=== PATIENT | female | born 1950 | race Caucasian/White ===

== ENCOUNTER 2020-06-03 08:31 | Outpatient (REF) | payer MEDICARE, SELFPAY ==
[2020-06-03 11:10] LABS: MANUAL DIFF FLAG NO
[2020-06-03 11:22] LABS: Basophils Absolute Auto 0.1 X10*3/uL (0.0-0.2); Basophils Percent Auto 0.8 % (0-2); Eosinophils Absolute Auto 0.5 X10*3/uL (0.0-0.4); Hematocrit 44.8 % (37-47); Hemoglobin 15.2 g/dl (12.0-16.0); Imm Gran Abs Auto 0.03 X10*3/uL (0.00-0.03); Imm Gran Pct Auto 0.3 % (0.0-0.4); Lymphocytes Absolute Auto 2.9 X10*3/uL (1.2-4.9); Mean Corpuscular HGB Conc 33.9 g/dl (31.0-35.0); Mean Corpuscular Hemoglobin 32.2 pg (27.0-33.0); Mean Corpuscular Volume 94.9 fL (80-98); Monocytes Absolute Auto 0.7 X10*3/uL (0.1-1.2); Monocytes Percent Auto 7.1 % (2-11); Neutrophils Absolute Auto 5.7 X10*3/uL (2.0-8.3); Neutrophils Percent Auto 57.8 % (45-73); Platelet Count 299 X10*3/uL (160-400); Red Blood Count 4.72 X10*6/uL (4.20-5.50); Red Cell Distribution Width 14.2 % (11.0-16.0); White Blood Count 9.8 X10*3/uL (4.8-10.8)
[2020-06-03 11:42] LABS: Estimated Average Glucose 108 mg/dL; Hemoglobin A1c % 5.4 %
[2020-06-03 12:02] LABS: Anion Gap 13 (12-20); Blood Urea Nitrogen 13 mg/dL (9-16); Calcium 9.3 mg/dL (8.4-10.2); Carbon Dioxide 30 mmol/L (22-29); Chloride 104 mmol/L (96-108); Cholesterol 154 mg/dL; Estimated Glomerular Filt Rate > 60; Glucose Fasting 107 mg/dL (60-99); HDL Cholesterol 58 mg/dL; LDL Cholesterol Calculated 66 mg/dl; Potassium 3.6 mmol/L (3.3-5.1); Sodium 143 mmol/L (135-145); Triglycerides 152 mg/dL
[2020-06-10 12:36] LABS: Vitamin D 25-OH, D2 <4 ng/mL; Vitamin D 25-OH, D3 25 ng/mL; Vitamin D 25-OH, Total 25 ng/mL (30-100)
== END 2020-06-03 08:32 | disposition home or self-care (01) ==
LOC: HO.HMGCLDS 08:31
PROVIDERS: PCP Internal Medicine; Visit Provider Internal Medicine
DX: R73.01 Impaired fasting glucose (principal); E03.9 Hypothyroidism, unspecified; E78.9 Disorder of lipoprotein metabolism, unspecified; I10 Essential (primary) hypertension; E55.9 Vitamin D deficiency, unspecified
CPT/HCPCS: 36415; 80048; 80061; 82306; 83036; 85025

== ENCOUNTER 2020-06-23 12:29 | Outpatient (REF) | payer MEDICARE, SELFPAY ==
--- NOTE | ~2020-06-23 | XR_ITS ---
EXAMINATION: XR CERVICAL SPINE CLINICAL INFORMATION: Cervicalgia COMPARISON: None TECHNIQUE: 3 views of the cervical spine were obtained. FINDINGS: No acute fracture or subluxation. Vertebral body height and alignment is maintained. Disc space narrowing seen at C4-C5, C5-C6, and C6-C7 with endplate osteophytes. Mild facet arthropathy. The atlantoaxial joint is well aligned. The dens is intact. The prevertebral soft tissues are unremarkable. The lung apices are clear. 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
== END 2020-06-23 12:30 | disposition home or self-care (01) ==
LOC: HO.HMGCX 12:29
PROVIDERS: PCP Internal Medicine; Visit Provider Internal Medicine
DX: M54.2 Cervicalgia (principal); R10.13 Epigastric pain; E55.9 Vitamin D deficiency, unspecified; E03.9 Hypothyroidism, unspecified; E78.9 Disorder of lipoprotein metabolism, unspecified; R73.01 Impaired fasting glucose; H61.23 Impacted cerumen, bilateral; I10 Essential (primary) hypertension
CPT/HCPCS: 72040

== ENCOUNTER → 2020-09-22 14:28 | Outpatient (BNVA) | payer MEDICARE, SELFPAY | PROVIDERS: PCP Internal Medicine; Referring Provider Internal Medicine; Visit Provider Nurse Practitioner Family | DX: Z45.018 Encounter for adjustment and management of other part of cardiac pacemaker (principal); I49.5 Sick sinus syndrome; I35.0 Nonrheumatic aortic (valve) stenosis | CPT/HCPCS: 99212 ==

== ENCOUNTER → 2020-11-03 10:20 | Outpatient (REF) | payer MEDICARE, SELFPAY ==
--- NOTE | 2020-11-03 10:28 | CA_ITS ---
Transthoracic Echocardiogram Patient (Last, First, Middle): Corinne Landers A Gender: Female Date of : 1950 Age: 70 Procedure Date: 11/03/2020 Procedure Type: Transthoracic Echocardiogram Location: OP Height: 172.72 cm Weight: 72.58 kg BSA: 1.86 m2 Heart Rate: bpm BP: 120 / 70 mmHg Forensic Structural Engineer: KAYLAH Referring MD: Ban Frances JOGGER OPERATORJaimieC Symptoms: I35.0 - Nonrheumatic aortic (valve) stenosis Study Quality: Good ECG Rhythm: Sinus Conclusions: - The left ventricular systolic function is normal. The visually estimated ejection fraction is between 65-70%. - Focal hypertrophy of the basal septum. - Aortic valve sclerosis but no significant stenosis. Findings Left Ventricle Normal left ventricular cavity size. There is normal left ventricular wall thickness. The left ventricular systolic function is normal. The visually estimated ejection fraction is between 65-70%. There is no evidence of regional wall motion abnormalities. Diastolic function is normal for age. Focal hypertrophy of the basal septum. Right Ventricle Normal right ventricular cavity size. There is low normal right ventricular systolic function. TAPSE 1.65cm. Atria Both atria are normal in size. Aortic Valve There is a normal trileaflet aortic valve. There is mild calcification of the aortic valve. The mean gradient is 9 mmHg. There is no aortic valve regurgitation. No significant aortic stenosis. Mitral Valve The mitral valve appears normal. There is no mitral valve regurgitation. There is no mitral valve stenosis. Pulmonic Valve The pulmonic valve is likely normal. Tricuspid Valve Normal tricuspid valve structure. There is trace tricuspid valve regurgitation. The pulmonary artery systolic pressure is normal. Great Vessels The aortic annulus, sinuses of valsalva, and asc aorta are normal in size. Venous The inferior vena cava is normal in size and collapses greater than 50% with inspiration. Pericardium/Pleural There is no evidence of pericardial effusion. Prior Study Comparison No significant change compared to prior study dated: 07/31/2018. Measurements 2D Linear Measurements IVSd: 1.00 0.6-0.9/0.6-1.0 cm LVIDd: 4.40 3.9-5.3/4.2-5.9 cm LVIDd Index: 2.37 2.4-3.2/2.2-3.1 cm/m2 LVIDs: 2.57 2.0-3.6 cm LVPWd: 0.78 0.7-1.1 cm Ao Root: 2.90 2.1-3.5 cm LA Diam: 3.50 2.7-3.8/3.0-4.0 cm LAIDs Index: 1.88 1.5-2.3 cm/m2 LV Mass: 156.52 67-162/88-224 g LV Mass Index: 84.15 43-95/49-115 g/m2 LVOT Diam: 2.00 3.0+(-)1.3 cm 2D Systolic Function EF 4C: 64.10 >55% EF 2C: 62.60 >55% EF BiP: 63.30 >55% Mitral Valve MV Pk E: 0.55 MV PK A: 0.91 MV Decel Time: 285.00 E/A: 0.60 E'Lateral: 6.53 E'Medial: 5.33 E/E' Med: 10.20 E/E' Lat: 8.30 PHT: 83.00 MVA PHT: 2.65 Decel Thomas: 1.91 Aortic Valve AoV Pk Yuri: 2.14 AoV Mn Yuri: 1.38 AoV VTI: 0.42 AoV Pk Grad: 18.00 Aov Mn Grad: 9.00 LETICIA Cont.VTI: 1.78 LVOT LVOT Pk Yuri: 0.98 LVOT Mn Yuri: 0.66 LVOT VTI: 0.24 LVOT Pk Grad: 4.00 LVOT Mn Grad: 2.00 LVOT Diam: 2.00 LVOT Area: 3.14 Diastolic Function MV Pk E: 0.55 MV Pk A: 0.91 E/A: 0.60 E'Medial: 5.33 E/E' Med: 10.20 E' Laterial: 6.53 E/E' Lat: 8.30 Right Ventricle TAPSE (mm): 1.65 TVS' Yuri: 10.30 Tricuspid Valve TR Pk Yuri: 2.31 TR Pk Grad: 21.00 RA Press: 3.00 RVSP: 24.00 Great Vessels Aorta Ao Root-2D: 2.90 2.0-3.7 cm Ao Asc: 3.10 2.1-3.4 cm Ao Arch: 2.50 Updated in Other Vendor System with Status of Final Jagjit Cuevas MD electronically signed on 11/04/2020 11:59:56 AM with status of Final
== END ==
LOC: HO.CARD 10:20
PROVIDERS: Visit Provider Nurse Practitioner Family
DX: Z01.419 Encounter for gynecological examination (general) (routine) without abnormal findings (principal); I35.0 Nonrheumatic aortic (valve) stenosis; Z87.891 Personal history of nicotine dependence; Z71.3 Dietary counseling and surveillance
CPT/HCPCS: 93306

== ENCOUNTER → 2020-12-07 13:26 | Outpatient (BNVA) | payer MEDICARE, SELFPAY | PROVIDERS: PCP Internal Medicine; Referring Provider Internal Medicine; Visit Provider Nurse Practitioner Family | DX: Z12.11 Encounter for screening for malignant neoplasm of colon (principal) | CPT/HCPCS: 99202 ==

== ENCOUNTER 2020-12-17 12:17 | Outpatient (REF) | payer MEDICARE, SELFPAY ==
--- NOTE | ~2020-12-17 | MM_ITS ---
EXAMINATION: MM SCREENING DIGITAL BREAST TOMOSYNTHESIS, BILATERAL CLINICAL INFORMATION: Screening. Asymptomatic. The lifetime risk of breast cancer based on the Tyrer-Cuzick Model is 4%. COMPARISON: Mammography: 12/14/2017, 10/23/2016, 10/13/2015, 10/07/2015 TECHNIQUE: Digital breast tomosynthesis is performed in both the craniocaudal and mediolateral oblique views along with computer-aided detection (CAD). Synthesized 2D images are generated from the tomosynthesis. Additional left MLO view is provided. FINDINGS: There are scattered areas of fibroglandular density (ACR BI-RADS breast composition Category b). There are no significant masses, abnormal calcifications, or other abnormalities. Pacemaker generator partially overlies and obscures posterior upper left axilla. Parenchymal pattern is similar to prior exams. No developing density. No significant changes. MM/MM tomosynthesis screening BI IMPRESSION: No mammographic evidence of malignancy. ASSESSMENT: BI-RADS 1: Negative RECOMMENDATION: Routine annual mammography screening. This patient's information was entered into a reminder system with a target due date for their next mammogram.
== END 2020-12-17 12:18 | disposition home or self-care (01) ==
LOC: HO.MAMMO 12:17
PROVIDERS: Visit Provider Internal Medicine
DX: Z12.31 Encounter for screening mammogram for malignant neoplasm of breast (principal)
CPT/HCPCS: 77063; 77067

== ENCOUNTER 2020-12-30 08:45 | Outpatient (REF) | payer MEDICARE, SELFPAY ==
[2020-12-30 11:55] LABS: Alanine Aminotransferase 56 U/L (0-31); Albumin Level 4.3 g/dL (3.5-5.0); Alkaline Phosphatase 124 U/L (39-117); Anion Gap 13 (12-20); Aspartate Amino Transferase 31 U/L (5-31); Bilirubin Total 0.8 mg/dL (0.0-1.0); Blood Urea Nitrogen 12 mg/dL (9-16); Calcium 9.4 mg/dL (8.4-10.2); Carbon Dioxide 26 mmol/L (22-29); Chloride 106 mmol/L (96-108); Cholesterol 140 mg/dL; Estimated Glomerular Filt Rate > 60; Glucose Fasting 115 mg/dL (60-99); HDL Cholesterol 43 mg/dL; LDL Cholesterol Calculated 76 mg/dl; Potassium 3.9 mmol/L (3.3-5.1); Sodium 141 mmol/L (135-145); Total Protein 7.4 g/dL (6.5-8.0); Triglycerides 105 mg/dL
[2020-12-30 12:05] LABS: TSH reflex Free T4 2.15 uIU/mL (0.32-4.0)
== END 2020-12-30 08:46 | disposition home or self-care (01) ==
LOC: HO.HMGCLDS 08:45
PROVIDERS: PCP Internal Medicine; Visit Provider Internal Medicine
DX: Z00.01 Encounter for general adult medical examination with abnormal findings (principal); E03.9 Hypothyroidism, unspecified; E78.9 Disorder of lipoprotein metabolism, unspecified; I10 Essential (primary) hypertension; R73.01 Impaired fasting glucose
CPT/HCPCS: 36415; 80053; 80061; 84443

== ENCOUNTER 2021-01-19 08:52 | Day surgery (SDC) | payer MEDICARE, SELFPAY ==
[2021-01-13 15:50] VITALS: BMI 24.3
--- NOTE | 2021-01-18 10:51 | HO.ANESPROP2 ---
Documented by User: Natalia Quintanilla NP 01/18/21 10:53 HPI - Anesthesia Eval Consult details Narrative: 70yo F for Colonoscopy Pacer in situ (SSS) PMFSH Active Problems Active Problems: All Active Problems (Updated 12/31/20 @ 14:53 by Cole Mei MD) Counseling for travel (Acute) Well woman exam with routine gynecological exam (Acute) Impacted cerumen of both ears (Acute) Encounter for routine gynecological examination (Acute) Breast screening (Acute) Encounter for general adult medical examination with abnormal findings (Acute) Aortic stenosis (Acute) Colon cancer screening (Acute) Epigastric pain (Acute) Cervicalgia (Acute) Excessive cerumen in both ear canals (Acute) Vitamin D deficiency (Acute) Asthma, mild (Acute) Osteopenia (Acute) Impaired fasting blood sugar (Acute) Psoriasis (Acute) Hypothyroidism (Acute) Lipid disorder (Acute) Hypertension, essential (Acute) Presence of heart assist device (Acute) Past Medical History Medical History Aortic stenosis Asthma, mild Excessive cerumen in both ear canals Hypertension, essential Hypothyroidism Impaired fasting blood sugar Lipid disorder Osteopenia Psoriasis SSS (sick sinus syndrome) Vitamin D deficiency Family History Family History Father History of CVA (cerebrovascular accident) HTN (hypertension) Depression Mother History of CVA (cerebrovascular accident) CAD (coronary artery disease) HTN (hypertension) Colitis Sister Myocardial infarction CAD (coronary artery disease) Colitis Brother Diabetes mellitus Maternal Aunt Breast cancer CAD (coronary artery disease) HTN (hypertension) Maternal Grandfather No problems noted. Maternal Grandmother No problems noted. Paternal Grandfather No problems noted. Paternal Grandmother No problems noted. Son No problems noted. Son No problems noted. Daughter No problems noted. Surgical History Surgical History History of colonoscopy History of cystoscopy History of tooth extraction Pacemaker Presence of heart assist device Social History Social History Housing: House Alcohol intake: current Alcohol intake frequency: a few times a week Patient Tobacco Use Status: Former Tobacco user Tobacco use type: Cigarette Cigarette Packs Per Day: 1 Use of substances other than those prescribed or required for medical reasons: No Are you DNR?: No Advance Directives: No Advance Directives Information Provided: Yes Current occupational status: retired Meds Allergies Allergy/AdvReac Type Severity Reaction Status Date / Time Sulfa (Sulfonamide Allergy Severe RASH ALL Verified 12/31/20 14:37 Antibiotics) OVER [SULFA (SULFONAMIDE BODY,FACE, ANTIBIOTICS)] rash Penicillins Allergy Mild THROAT Verified 12/31/20 14:37 SWELLING lisinopril Allergy Unknown cough Verified 12/31/20 14:37 penicillin V Allergy Unknown tongue Verified 12/31/20 14:37 banana [BANANA] AdvReac Severe STOMACH Verified 12/31/20 14:37 UPSET/PAIN hazelnut [HAZELNUT] AdvReac Intermediate UPSET Verified 12/31/20 14:37 STOMACH Exam Exam Date and Time: January 18, 2021 1051 Height,Weight and Vital Signs: Height 5 ft 8 in Weight 72.575 kg Pertinent Lab Results Pertinent Lab Results: Laboratory Tests 06/03/20 12/30/20 08:37 08:51 WBC 9.8 Hgb 15.2 Hct 44.8 Plt Count 299 Sodium 141 Potassium 3.9 Chloride 106 Carbon Dioxide 26 BUN 12 Creatinine 0.78 Narrative Narrative: Pacer Interr 09/2020 Medtronic dual chamber PPM today shows battery 5.5 years, A and V thresholds normal, AAIR-DDDR mode, low rate 60, No AF, 2 short VT, / VS 94.9%, AP/VS 5.1%, no changes made. ECHO 10/2020 Conclusions: - The left ventricular systolic function is normal.? The visually estimated ejection fraction is between 65-70%. ? - Focal hypertrophy of the basal septum. ? - Aortic valve sclerosis but no significant stenosis.? ?? Assessment and Plan Assessment Anesthesia Assessment: Chart Reviewed Documented by User: Zoe Smith MD 01/19/21 09:48 PMFSH Past Medical History Medical History Aortic stenosis Asthma, mild Excessive cerumen in both ear canals Hypertension, essential Hypothyroidism Impaired fasting blood sugar Lipid disorder Osteopenia Psoriasis SSS (sick sinus syndrome) Vitamin D deficiency Family History Family History Father History of CVA (cerebrovascular accident) HTN (hypertension) Depression Mother History of CVA (cerebrovascular accident) CAD (coronary artery disease) HTN (hypertension) Colitis Sister Myocardial infarction CAD (coronary artery disease) Colitis Brother Diabetes mellitus Maternal Aunt Breast cancer CAD (coronary artery disease) HTN (hypertension) Maternal Grandfather No problems noted. Maternal Grandmother No problems noted. Paternal Grandfather No problems noted. Paternal Grandmother No problems noted. Son No problems noted. Son No problems noted. Daughter No problems noted. Surgical History Surgical History History of colonoscopy History of cystoscopy History of tooth extraction Pacemaker Presence of heart assist device History of Problems with Anesthesia: No Social History Social History Housing: House Alcohol intake: current Alcohol intake frequency: a few times a week Patient Tobacco Use Status: Former Tobacco user Tobacco use type: Cigarette Cigarette Packs Per Day: 1 Use of substances other than those prescribed or required for medical reasons: No Are you DNR?: No Advance Directives: No Advance Directives Information Provided: Yes Current occupational status: retired Meds Allergies Allergy/AdvReac Type Severity Reaction Status Date / Time Sulfa (Sulfonamide Allergy Severe RASH ALL Verified 12/31/20 14:37 Antibiotics) OVER [SULFA (SULFONAMIDE BODY,FACE, ANTIBIOTICS)] rash Penicillins Allergy Mild THROAT Verified 12/31/20 14:37 SWELLING lisinopril Allergy Unknown cough Verified 12/31/20 14:37 penicillin V Allergy Unknown tongue Verified 12/31/20 14:37 banana [BANANA] AdvReac Severe STOMACH Verified 12/31/20 14:37 UPSET/PAIN hazelnut [HAZELNUT] AdvReac Intermediate UPSET Verified 12/31/20 14:37 STOMACH Exam Airway Mallampati Class: II TM Dist: >3cm Neck ROM: Full Loose/Missing/Broken Teeth: No Heart: RRR Lungs: CTA Assessment and Plan Assessment Anesthesia Assessment: Anesthesia Plan Discussed Final Anesthetic Review History of Problems with Anesthesia: No NPO: Yes ASA Class: III Final Preanesthetic Review: Meds/Allgs Chart Reviewed, Consent Obtained/Reviewed and Anes Risks/Benef Reviewed Patient Risk: Intermediate Procedure Risk: Low Anesthetic Plan Anesthetic Plan: MAC: Disposition: Standard PACU
--- NOTE | 2021-01-19 09:20 | MHC.SHP ---
Pre-Procedural Eval Section A Date of Service: 01/19/21 Section B Chief Complaint: screening Relevant Family History (Specify if Yes): No Relevant Social History: None Present Medications: see Short Stay Collaborative assessment Medical History: Significant History (Aortic stenosis Asthma, mild Excessive cerumen in both ear canals Hypertension, essential Hypothyroidism Impaired fasting blood sugar Lipid disorder Osteopenia Psoriasis SSS (sick sinus syndrome) Vitamin D deficiency) History of Previous Operations: Relevant previous surgery/procedure and date(s) (History of colonoscopy History of cystoscopy History of tooth extraction Pacemaker Presence of heart assist device) Allergies: Allergies Allergy/AdvReac Type Severity Reaction Status Date / Time Sulfa (Sulfonamide Allergy Severe RASH ALL Verified 12/31/20 14:37 Antibiotics) OVER [SULFA (SULFONAMIDE BODY,FACE, ANTIBIOTICS)] rash Penicillins Allergy Mild THROAT Verified 12/31/20 14:37 SWELLING lisinopril Allergy Unknown cough Verified 12/31/20 14:37 penicillin V Allergy Unknown tongue Verified 12/31/20 14:37 banana [BANANA] AdvReac Severe STOMACH Verified 12/31/20 14:37 UPSET/PAIN hazelnut [HAZELNUT] AdvReac Intermediate UPSET Verified 12/31/20 14:37 STOMACH Review of Systems Sugical H&P ROS: Negative: Constitution, Cardiovascular, Respiratory, Neurological, Psychiatric, Hem-Onc, Allergic/Immunologic, Gastrointestinal, Genitourinary, Musculoskeletal, Integumentary, Endocrine and Eyes/Ears/Nose/Throat Exam Surgical H&P Exam: Normal: HEENT, Normal: Heart, Normal: Lungs, Normal: Extremities, Normal: Abdomen, Normal: Skin and Normal: Neurological Plan Diagnosis/Plan: Unchanged I have reviewed the history and physical and performed a pertinent physical examination on my patient. No changes have occurred unless specified.
[2021-01-19 09:27] VITALS: BP 140/72; PULSE 80; RESP 16; TEMP 36.2; O2SAT 97; BMI 24.3
[2021-01-19] MEDS: Lactated Ringers 1,000 ML 100 ML IVCONT (09:35)
--- NOTE | 2021-01-19 10:15 | P.OP_ITS ---
Operative Note Operative Note Date of Service: 01/19/21 Narrative: Operative Information Procedure Description: Colonoscopy COLONOSCOPY Instrument: Olympus variable stiffness pediatric scope 190L Colonoscopy Monitoring: Vital signs and clinical assessment, continuous EKG monitoring, Pulse oximetry, Carbon Dioxide monitoring and blood pressure monitoring were done throughout the procedure. Colon withdrawal time was 8 minutes. Procedure: The patient was placed in the left lateral decubitis position and pre-procedure medications were administered. After a digital rectal examination of the ano-rectum, the video colonoscope was inserted into the rectum and advanced through the colon to the cecum/TI. The colonoscope was slowly withdrawn in a retrograde panoramic fashion and the colon mucosa was carefully examined including a retroflexed view of the rectum. Findings and interventions are described below. Procedure Difficulty: easy Findings: Terminal Ileum-normal Cecum:normal Ascending Colon: normal Transverse Colon -normal Descending Colon:normal Sigmoid Colon: normal Rectum: Retroflexion with small internal hemorrhoids, grade I with skin tag Anorectum - normal Colon preparation: [place] Bowel Preparation Scale Right colon; 2 Transverse colon: 2 Left colon; 2 (0 = Unprepared colon segment with mucosa not seen due to solid stool that cannot be cleared. 1 = Portion of mucosa of the colon segment seen, but other areas of the colon segment not well seen due to staining, residual stool and/or opaque liquid. 2 = Minor amount of residual staining, small fragments of stool and/or opaque liquid, but mucosa of colon segment seen well. 3 = Entire mucosa of colon segment seen well with no residual staining, small fragments of stool or opaque liquid) Impression and Post Procedure Diagnosis: internal hemorrhoids Plan: High fiber diet leaflet Avoid straining at stool, epsom salts and sitz bath, anusol supps or cream Repeat Colonoscopy in 10 years if health allows or earlier if clinically indicated Above findings were reviewed with the patient and relevant handouts were provided if indicated.
--- NOTE | 2021-01-19 10:15 | P.BOP_ITS ---
Brief Operative Note Date of Service: 01/19/21 Pre-op diagnosis: colon screening Post-op diagnosis: same Procedure: see op note Surgeon: Sun Landers MD Anesthesia: MAC Was an Health Care Coordinator used for this Procedure?: No Estimated blood loss (mL): 0 Condition: stable Disposition: PACU
[2021-01-19 10:20] VITALS: BP 95/54; PULSE 69; RESP 16; TEMP 36.2; O2SAT 97
[2021-01-19 10:35] VITALS: BP 110/57; PULSE 68; RESP 17; TEMP 36.2; O2SAT 96
== END 2021-01-19 11:35 | disposition home or self-care (01) ==
PROVIDERS: PCP Internal Medicine; Visit Provider Internal Medicine Gastroenterology
PROC: 0DJD8ZZ Inspection of Lower Intestinal Tract, Via Natural or Artificial Opening Endoscopic (ICD-10-PCS; CPT 45378; principal; 2021-01-19 10:10)
DX: Z12.11 Encounter for screening for malignant neoplasm of colon (principal); K64.0 First degree hemorrhoids; K64.4 Residual hemorrhoidal skin tags; K21.9 Gastro-esophageal reflux disease without esophagitis; I35.0 Nonrheumatic aortic (valve) stenosis; I49.5 Sick sinus syndrome; I10 Essential (primary) hypertension; J45.909 Unspecified asthma, uncomplicated; Z79.82 Long term (current) use of aspirin; Z79.899 Other long term (current) drug therapy; Z86.73 Personal history of transient ischemic attack (TIA), and cerebral infarction without residual deficits; Z88.0 Allergy status to penicillin; Z88.2 Allergy status to sulfonamides; Z88.8 Allergy status to other drugs, medicaments and biological substances; Z87.891 Personal history of nicotine dependence
CPT/HCPCS: G0121

== ENCOUNTER → 2021-01-31 12:56 | Outpatient (BNVA) | payer MEDICARE, SELFPAY | PROVIDERS: PCP Internal Medicine; Visit Provider Nurse Practitioner Family | DX: R10.13 Epigastric pain (principal); Z98.890 Other specified postprocedural states | CPT/HCPCS: 99212 ==

== ENCOUNTER → 2021-04-05 10:54 | Outpatient (BNVA) | payer MEDICARE, SELFPAY | PROVIDERS: PCP Internal Medicine; Referring Provider Internal Medicine; Visit Provider Internal Medicine Cardiovascular Disease | DX: Z45.018 Encounter for adjustment and management of other part of cardiac pacemaker (principal); I10 Essential (primary) hypertension | CPT/HCPCS: 99212 ==

== ENCOUNTER 2021-09-15 13:48 | Outpatient (REF) | payer MEDICARE, SELFPAY ==
[2021-09-15 15:01] LABS: Influenza A PCR NEGATIVE (Negative); Influenza B PCR NEGATIVE (Negative); Resp Syncy Virus RNA Qual PCR NEGATIVE (Negative); SARS COV2 PCR INHOUSE POSITIVE (Negative)
== END 2021-09-15 13:49 | disposition home or self-care (01) ==
LOC: HO.LNP 13:48
PROVIDERS: Visit Provider Internal Medicine
DX: Z20.822 Contact with and (suspected) exposure to COVID-19 (principal); R09.89 Other specified symptoms and signs involving the circulatory and respiratory systems
CPT/HCPCS: 0241U

== ENCOUNTER 2021-10-04 11:08 | Outpatient (REF) | payer MEDICARE, SELFPAY ==
[2021-10-04 13:47] LABS: MANUAL DIFF FLAG NO
[2021-10-04 13:53] LABS: Basophils Absolute Auto 0.1 X10*3/uL (0.0-0.2); Basophils Percent Auto 1.3 % (0-2); Eosinophils Absolute Auto 0.3 X10*3/uL (0.0-0.4); Eosinophils Percent Auto 3.7 % (0-4); Hematocrit 42.8 % (37.0-47.0); Hemoglobin 14.6 g/dl (12.0-16.0); Imm Gran Abs Auto 0.02 X10*3/uL (0.00-0.03); Imm Gran Pct Auto 0.3 % (0.0-0.4); Lymphocytes Absolute Auto 2.3 X10*3/uL (1.2-4.9); Lymphocytes Percent Auto 33.3 % (20-40); Mean Corpuscular HGB Conc 34.1 g/dl (31.0-35.0); Mean Corpuscular Hemoglobin 32.1 pg (27.0-33.0); Mean Corpuscular Volume 94.1 fL (80.0-98.0); Mean Platelet Volume 10.1 fL (9.4-12.3); Monocytes Absolute Auto 0.6 X10*3/uL (0.1-1.2); Monocytes Percent Auto 8.7 % (2-11); Neutrophils Absolute Auto 3.6 x10*3/uL (2.0-8.3); Neutrophils Percent Auto 52.7 % (45-73); Platelet Count 336 X10*3/uL (160-400); Red Blood Count 4.55 X10*6/uL (4.20-5.50); Red Cell Distribution Width 14.6 % (11.0-16.0); White Blood Count 6.8 X10*3/uL (4.8-10.8)
[2021-10-04 14:05] LABS: Estimated Average Glucose 114 mg/dL; Hemoglobin A1c % 5.6 %
[2021-10-04 14:17] LABS: Alanine Aminotransferase 52 U/L (0-31); Albumin Level 4.4 g/dL (3.5-5.0); Alkaline Phosphatase 121 U/L (39-117); Anion Gap 11 (12-20); Aspartate Amino Transferase 29 U/L (5-31); Bilirubin Total 0.6 mg/dL (0.0-1.0); Blood Urea Nitrogen 14 mg/dL (9-16); Calcium 9.4 mg/dL (8.4-10.2); Carbon Dioxide 28 mmol/L (22-29); Chloride 105 mmol/L (96-108); Cholesterol 158 mg/dL; Estimated Glomerular Filt Rate 58; Glucose Fasting 132 mg/dL (60-99); HDL Cholesterol 51 mg/dL; LDL Cholesterol Calculated 85 mg/dl; Potassium 4.4 mmol/L (3.3-5.1); Sodium 140 mmol/L (135-145); Total Protein 7.7 g/dL (6.5-8.0); Triglycerides 110 mg/dL
[2021-10-04 14:25] LABS: TSH reflex Free T4 2.87 uIU/mL (0.32-4.0)
[2021-10-06 13:15] LABS: LDL Cholesterol Direct 95 mg/dL (<100)
== END 2021-10-04 11:09 | disposition home or self-care (01) ==
LOC: HO.HMGCLDS 11:08
PROVIDERS: PCP Internal Medicine; Visit Provider Internal Medicine
DX: E03.9 Hypothyroidism, unspecified (principal); E78.9 Disorder of lipoprotein metabolism, unspecified; I10 Essential (primary) hypertension; R73.01 Impaired fasting glucose; Z86.16 Personal history of COVID-19; Z95.0 Presence of cardiac pacemaker
CPT/HCPCS: 36415; 80053; 80061; 83036; 83721; 84443; 85025

== ENCOUNTER → 2021-11-22 13:28 | Outpatient (BNVA) | payer MEDICARE, SELFPAY | PROVIDERS: PCP Internal Medicine; Referring Provider Internal Medicine; Visit Provider Internal Medicine Cardiovascular Disease | DX: I10 Essential (primary) hypertension (principal); Z45.018 Encounter for adjustment and management of other part of cardiac pacemaker | CPT/HCPCS: 93005; 93280; 99212 ==

== ENCOUNTER 2021-12-21 09:10 | Outpatient (REF) | payer MEDICARE, SELFPAY ==
[2021-12-21 11:49] LABS: TSH reflex Free T4 2.32 uIU/mL (0.32-4.0)
== END 2021-12-21 09:11 | disposition home or self-care (01) ==
LOC: HO.HMGCLDS 09:10
PROVIDERS: PCP Internal Medicine; Visit Provider Internal Medicine
DX: R73.01 Impaired fasting glucose (principal); E03.9 Hypothyroidism, unspecified; E78.9 Disorder of lipoprotein metabolism, unspecified; I10 Essential (primary) hypertension; H61.23 Impacted cerumen, bilateral; Z95.0 Presence of cardiac pacemaker; Z86.16 Personal history of COVID-19
CPT/HCPCS: 36415; 84443

== ENCOUNTER 2022-04-12 09:20 | Outpatient (REF) | payer MEDICARE, SELFPAY ==
[2022-04-12 12:21] LABS: Alanine Aminotransferase 59 U/L (0-31); Albumin Level 4.3 g/dL (3.5-5.0); Alkaline Phosphatase 132 U/L (39-117); Anion Gap 14 (12-20); Aspartate Amino Transferase 39 U/L (5-31); Bilirubin Total 0.7 mg/dL (0.0-1.0); Blood Urea Nitrogen 14 mg/dL (9-16); Calcium 9.7 mg/dL (8.4-10.2); Carbon Dioxide 27 mmol/L (22-29); Chloride 107 mmol/L (96-108); Estimated Glomerular Filt Rate > 60; Glucose Random 117 mg/dL (60-115); Potassium 4.3 mmol/L (3.3-5.1); Sodium 144 mmol/L (135-145); TSH reflex Free T4 3.18 uIU/mL (0.32-4.0); Total Protein 7.4 g/dL (6.5-8.0)
[2022-04-12 12:33] LABS: Estimated Average Glucose 117 mg/dL; Hemoglobin A1c % 5.7 %
== END 2022-04-12 09:21 | disposition home or self-care (01) ==
LOC: HO.HMGCLDS 09:20
PROVIDERS: PCP Internal Medicine; Visit Provider Internal Medicine
DX: E03.9 Hypothyroidism, unspecified (principal); E78.9 Disorder of lipoprotein metabolism, unspecified; I10 Essential (primary) hypertension; L40.9 Psoriasis, unspecified; R73.01 Impaired fasting glucose; H61.23 Impacted cerumen, bilateral
CPT/HCPCS: 36415; 80053; 83036; 84443

== ENCOUNTER 2022-05-17 12:36 | Outpatient (REF) | payer MEDICARE, SELFPAY ==
--- NOTE | ~2022-05-17 | MM_ITS ---
EXAMINATION: MM SCREENING DIGITAL BREAST TOMOSYNTHESIS, BILATERAL CLINICAL INFORMATION: Screening. Asymptomatic. The lifetime risk of breast cancer based on the Tyrer-Cuzick Model is 4%. COMPARISON: Mammography: 12/17/2020, 12/14/2017, 10/23/2016 TECHNIQUE: Digital breast tomosynthesis is performed in both the craniocaudal and mediolateral oblique views along with computer-aided detection (CAD). Synthesized 2D images are generated from the tomosynthesis. FINDINGS: There are scattered areas of fibroglandular density (ACR BI-RADS breast composition Category b). There are no significant masses, abnormal calcifications, or other abnormalities. No architectural abnormality or developing density or significant change from prior studies. Pacemaker generator overlies and partly obscures left axilla on MLO view. MM/MM tomosynthesis screening BI IMPRESSION: No mammographic evidence of malignancy. ASSESSMENT: BI-RADS 1: Negative RECOMMENDATION: Routine annual mammography screening. This patient's information was entered into a reminder system with a target due date for their next mammogram.
== END 2022-05-17 12:37 | disposition home or self-care (01) ==
LOC: HO.MAMMO 12:36
PROVIDERS: PCP Internal Medicine; Visit Provider Internal Medicine
DX: Z12.31 Encounter for screening mammogram for malignant neoplasm of breast (principal)
CPT/HCPCS: 77063; 77067

== ENCOUNTER → 2022-05-30 12:20 | Outpatient (BNVA) | payer MEDICARE, SELFPAY | PROVIDERS: PCP Internal Medicine; Referring Provider Internal Medicine; Visit Provider Internal Medicine Cardiovascular Disease | DX: Z45.018 Encounter for adjustment and management of other part of cardiac pacemaker (principal); Z86.79 Personal history of other diseases of the circulatory system | CPT/HCPCS: 93280; 99212 ==

== ENCOUNTER 2022-06-28 08:51 | Outpatient (REF) | payer MEDICARE, SELFPAY ==
[2022-06-28 11:27] LABS: MANUAL DIFF FLAG NO
[2022-06-28 11:40] LABS: Basophils Absolute Auto 0.1 X10*3/uL (0.0-0.2); Basophils Percent Auto 1.3 % (0-2); Eosinophils Absolute Auto 0.4 X10*3/uL (0.0-0.4); Eosinophils Percent Auto 4.9 % (0-4); Hematocrit 45.3 % (37.0-47.0); Hemoglobin 15.4 g/dl (12.0-16.0); Imm Gran Abs Auto 0.01 X10*3/uL (0.00-0.03); Imm Gran Pct Auto 0.1 % (0.0-0.4); Lymphocytes Absolute Auto 2.1 X10*3/uL (1.2-4.9); Lymphocytes Percent Auto 28.8 % (20-40); Mean Corpuscular Hemoglobin 31.8 pg (27.0-33.0); Mean Corpuscular Volume 93.4 fL (80.0-98.0); Mean Platelet Volume 10.3 fL (9.4-12.3); Monocytes Absolute Auto 0.5 X10*3/uL (0.1-1.2); Monocytes Percent Auto 7.4 % (2-11); Neutrophils Absolute Auto 4.1 x10*3/uL (2.0-8.3); Neutrophils Percent Auto 57.5 % (45-73); Platelet Count 310 X10*3/uL (160-400); Red Blood Count 4.85 X10*6/uL (4.20-5.50); Red Cell Distribution Width 13.9 % (11.0-16.0); White Blood Count 7.2 X10*3/uL (4.8-10.8)
[2022-06-28 11:50] LABS: Estimated Average Glucose 117 mg/dL; Hemoglobin A1c % 5.7 %
[2022-06-28 12:23] LABS: Alanine Aminotransferase 53 U/L (0-31); Albumin Level 4.4 g/dL (3.5-5.0); Alkaline Phosphatase 131 U/L (39-117); Anion Gap 14 (12-20); Aspartate Amino Transferase 30 U/L (5-31); Bilirubin Total 0.7 mg/dL (0.0-1.0); Blood Urea Nitrogen 11 mg/dL (9-16); Calcium 9.6 mg/dL (8.4-10.2); Carbon Dioxide 27 mmol/L (22-29); Chloride 106 mmol/L (96-108); Cholesterol 152 mg/dL; Estimated Glomerular Filt Rate > 60; Glucose Fasting 120 mg/dL (60-99); HDL Cholesterol 48 mg/dL; LDL Cholesterol Calculated 82 mg/dl; Potassium 3.7 mmol/L (3.3-5.1); Sodium 143 mmol/L (135-145); Total Protein 7.5 g/dL (6.5-8.0); Triglycerides 112 mg/dL
[2022-06-28 12:32] LABS: TSH reflex Free T4 3.52 uIU/mL (0.32-4.0)
== END 2022-06-28 08:52 | disposition home or self-care (01) ==
LOC: HO.HMGCLDS 08:51
PROVIDERS: PCP Internal Medicine; Visit Provider Internal Medicine
DX: I10 Essential (primary) hypertension (principal); E78.9 Disorder of lipoprotein metabolism, unspecified; E03.9 Hypothyroidism, unspecified; R73.01 Impaired fasting glucose; Z95.0 Presence of cardiac pacemaker
CPT/HCPCS: 36415; 80053; 80061; 83036; 84443; 85025

== ENCOUNTER 2022-11-14 12:17 | Outpatient (AMB) | payer MEDICARE, SELFPAY ==
[2022-11-14 12:20] VITALS: BP 122/62; PULSE 80; O2SAT 95; BMI 24.6
--- NOTE | 2022-11-14 12:20 | A.OFFPC_ITS ---
Vital Signs 11/14/22 12:20 Height 5 ft 8 in Weight 162 lb 2 oz BMI 24.6 BP 122/62 Blood Pressure Location Rt brachial Position Sitting Pulse 80 Pulse Source Pulse Oximeter Pulse Oximetry (%) 95 Oxygen Delivery Method Room Air Intake Visit Reasons: Annual PE Allergies Sulfa (Sulfonamide Antibiotics) [SULFA (SULFONAMIDE ANTIBIOTICS)] Allergy (Severe, Verified 11/14/22 12:21) RASH ALL OVER BODY,FACE, rash Penicillins Allergy (Mild, Verified 11/14/22 12:21) THROAT SWELLING lisinopril Allergy (Unknown, Verified 11/14/22 12:21) cough penicillin V Allergy (Unknown, Verified 11/14/22 12:21) tongue banana [BANANA] Adverse Reaction (Severe, Verified 11/14/22 12:21) STOMACH UPSET/PAIN hazelnut [HAZELNUT] Adverse Reaction (Intermediate, Verified 11/14/22 12:21) UPSET STOMACH Medication List - Last Reconciled 11/14/22 by Cole Mei MD amlodipine 10 mg PO DAILY 90 days atorvastatin 20 mg PO DAILY 90 days levothyroxine 100 mcg PO DAILY 90 days Tobacco use date assessed: 11/14/22 Fall risk assessment: No Falls in past year Last assessed Fall Risk: 11/14/22 Dental Screening Dental Screen Date: 11/14/22 Did you have a dental visit in the last 12 months?: Yes Did you have a dental problem in the last 6 months where you did not have access to dental care?: No Was dental information given to patient?: No HPI Annual PE HPI Details Patient is 72-year-old female came in today for her physical exam appointment Colonoscopy was in 2020 Pap smear was 2020 patient says that she was told she does not needed anymore Mammogram May of this year Due for labs Blood pressure is stable patient is on amlodipine 10 mg She takes atorvastatin 20 mg daily for lipid control And levothyroxine 100 mcg for hypothyroidism.? Patient have a cardiac pacemaker in place, she continue to follow-up with the fullerette once a year Dual-chamber Medtronic pacemaker in place Cerumen impaction: Both ears were irrigated with good result patient tolerated procedure well. Psoriasis management through dermatology, she also different color she was of moves, she will discuss it with the Dermatology at her upcoming appointment Follow-up 3M PFSH Medical History Aortic stenosis Asthma, mild Cardiac pacemaker in situ Excessive cerumen in both ear canals Hypertension, essential Hypothyroidism Impaired fasting blood sugar Lipid disorder Osteopenia Psoriasis SSS (sick sinus syndrome) Vitamin D deficiency Surgical History History of colonoscopy History of cystoscopy History of tooth extraction Family History Father History of CVA (cerebrovascular accident) HTN (hypertension) Depression Mother History of CVA (cerebrovascular accident) CAD (coronary artery disease) HTN (hypertension) Colitis Sister Myocardial infarction CAD (coronary artery disease) Colitis Brother Diabetes mellitus Maternal Aunt Breast cancer CAD (coronary artery disease) HTN (hypertension) Maternal Grandfather No problems noted. Maternal Grandmother No problems noted. Paternal Grandfather No problems noted. Paternal Grandmother No problems noted. Son No problems noted. Son No problems noted. Daughter No problems noted. Social History Housing: House Alcohol intake: current Alcohol intake frequency: a few times a week Patient Tobacco Use Status: Former Tobacco user Tobacco use type: Cigarette Cigarette Packs Per Day: 1 e-Cigarette/Vaping Use: Never Used service: No Current occupational status: retired Cognitive needs: No Hearing needs: No Vision needs: No Female Reproductive History Menstrual Age of Menarche: 13 Questionnaire PHQ-9 Over the last 2 weeks, how often have you been bothered by any of the following problems? 1. Little interest or pleasure in doing things: not at all 2. Feeling down, depressed, or hopeless: not at all 3. Trouble falling or staying asleep, or sleeping too much: several days 4. Feeling tired or having little energy: not at all 5. Poor appetite or overeating: not at all 6. Feeling bad about yourself - or that you are a failure or have let yourself or your family down: not at all 7. Trouble concentrating on things, such as reading the newspaper or watching television: not at all 8. Moving or speaking so slowly that other people could have noticed. Or the opposite - being so fidgety or restless that you have been moving around a lot more than usual: not at all 9. Thoughts that you would be better off or of hurting yourself in some way: not at all Total score: 1 Depression Screening Interpretation: Negative [id number] - PHQ-9 Billing: Yes Source: Developed by Drs. Sylvester Morel, Quiana Trevizo, Asif Shaffer and colleagues, with an educational vanda from [employer]. Thrive Questionnaire Date Thrive assessed: 11/14/22 I am a: Patient What is your living situation today?: I have a steady place to live Within the past 12 months, did the food you bought not last and you didn't have the money to get more?: Never true Within the past 12 months, did you worry whether your food would run out before you got money to buy more?: Never true Do you have trouble paying for medicines?: No Do you have trouble getting transportation to medical appointments?: No Do you have trouble paying your heating and electricity bill?: No Do you have trouble taking care of your child, family member or friend?: No Do you have trouble with day-to-day activities such as bathing, preparing meals, shopping, managing finances, etc.?: No Are you currently unemployed and looking for a job?: No Are you interested in more education?: No Please select the resources that you would like help with: None Currently or been in a relationship where the following occur: no concerns reported AUDIT C Alcohol Use Questionnaire (AUDIT-C) 1. How often do you have a drink containing alcohol?: 2-3 times a week 2. How many drinks containing alcohol do you have on a typical day when you are drinking?: 3 or 4 3. How often do you have six or more drinks on one occasion?: Never Total Score: 4 Score Reviewed/Action Taken: Yes KM-7 AMB Questionnaire KM-7 Date KM - 7 assessed: 11/14/22 Feeling nervous, anxious, or on edge: 0 = Not at all Not being able to stop or control worryin = Not at all Worrying too much about different things: 1 = Several days Trouble relaxin = Not at all Being so restless that it is hard to sit still: 0 = Not at all Becoming easily annoyed or irritable: 0 = Not at all Feeling afraid as if something awful might happen: 0 = Not at all Total KM-7 score (0-4 normal; 5-9 mild; 10-14 moderate; 15-21 severe): 1 Source: Developed by Drs. Sylvester Morel, Quiana Trevizo, Asif Shaffer and colleagues, with an educational vanda from [employer]. KM-7 Assessment Billing KM-7 Assessment Tool: KM-7 Assessment 82613 Review of Systems Const Denies chills, Denies fever(s) and Denies headache(s) Eyes Denies blurry vision ENT Denies headache(s), Denies nasal discharge, Denies nasal obstruction, Denies odynophagia and Denies sinus pain Card Denies chest pain at rest and Denies chest pain with activity Resp Denies cough and Denies hemoptysis GI Denies diarrhea, Denies odynophagia, Denies vomiting and Denies hematemesis Reports as per HPI Musc Denies abnormal gait Skin/Breast Reports as per HPI Neuro Denies Neuro-related abnormal movements, Denies Abnormal speech present, Denies abnormal gait, Denies headache(s) and Denies Sensory deficit (Neuro) Psych Denies mood swings and Denies paranoia Endo Reports as per HPI Ari/Lymph Reports as per HPI Aller/Immun Reports as per HPI Physical exam (Primary Care) Vital Signs: Last Vital Signs Pulse 80 11/14/22 12:20 BP 122/62 11/14/22 12:20 Pulse Ox 95 11/14/22 12:20 Oxygen Delivery Method Room Air 11/14/22 12:20 BMI result Body Mass Index 24.6 Tobacco/Smoking Status: Tobacco use Status Tobacco use date assessed 11/14/22 11/14/22 12:23 Patient Tobacco Use Status Former Tobacco user 11/14/22 12:23 Tobacco use type Cigarette 11/14/22 12:23 e-Cigarette/Vaping Use Never Used 11/14/22 12:23 PHQ-9: PHQ-9 Score PHQ-9: Total score 1 11/14/22 12:46 Depression Screening Interpretation: Negative Thrive Assessment: Date of Thrive Assessment Date Thrive assessed 11/14/22 11/14/22 12:46 Currently or been in a relationship where the following occur: no concerns reported Const General: cooperative, comfortable and no acute distress Orientation/consciousness: patient oriented x3 HENMT Other: Excessive cerumen in both ears Head: Yes normocephalic and Yes atraumatic Eyes General: appearance normal, both eyes and all related structures Pupils: Equal, round and reactive pupils present EOM: EOMs intact bilaterally Neck Neck: Yes supple and No lymphadenopathy Thyroid: Thyroid normal Lymphatic: no lymphadenopathy noted Chest Breast/axilla palpation: normal palpation of the breasts Resp Effort & Inspection: normal respiratory effort and able to speak in complete sentences Auscultation: clear to auscultation bilaterally Cardio Heart sounds: S1 normal heart sound present and S2 normal heart sound present GI Palpation (GI): Soft to palpation and nontender Auscultation: normal bowel sounds General: Yes no CVA tenderness Back/Spine/Pelvis Back: no CVA tenderness Skin Other: Different shape in color of moves in the back General skin exam: elasticity normal and turgor normal Neuro General: patient oriented x3 and gait normal Cranial nerves: Yes Equal, round and reactive pupils present Speech: No Abnormal speech present Sensory Exam: No Sensory deficit (Neuro) Coordination: tandem gait normal and Romberg test negative Extrem General: Yes normal exam except as noted and No edema Office Procedures Cerumen Removal From which ear canal was the cerumen removed: bilateral Removal: irrigation Notes: patient tolerated procedure well, no complications and ear canal clear [id number] Irrigation/Lavage Assessment and Plan Assessment & Plan (1) Encounter for general adult medical examination with abnormal findings: Code(s): Z00.01 - Encounter for general adult medical examination with abnormal findings (2) Hypertension, essential: Code(s): I10 - Essential (primary) hypertension (3) Lipid disorder: Code(s): E78.9 - Disorder of lipoprotein metabolism, unspecified (4) Hypothyroidism: Code(s): E03.9 - Hypothyroidism, unspecified Qualifiers: Hypothyroidism type: unspecified Qualified Code(s): E03.9 - Hypothyroidism, unspecified (5) Psoriasis: Code(s): L40.9 - Psoriasis, unspecified (6) Impaired fasting blood sugar: Code(s): R73.01 - Impaired fasting glucose (7) Osteopenia: Code(s): M85.80 - Other specified disorders of bone density and structure, unspecified site Qualifiers: Osteopenia location: lumbar spine Qualified Code(s): M85.88 - Other specified disorders of bone density and structure, other site (8) Asthma, mild: Code(s): J45.909 - Unspecified asthma, uncomplicated Qualifiers: Asthma complication type: uncomplicated Asthma persistence: intermittent Qualified Code(s): J45.20 - Mild intermittent asthma, uncomplicated (9) Vitamin D deficiency: Code(s): E55.9 - Vitamin D deficiency, unspecified (10) Excessive cerumen in both ear canals: Code(s): H61.23 - Impacted cerumen, bilateral (11) Cardiac pacemaker in situ: Comment: Dual-chamber Medtronic pacemaker for sick sinus syndrome Code(s): Z95.0 - Presence of cardiac pacemaker (12) Screening for alcohol problem: Comment: CONSEQUENCES OF DRINKING PROBLEMS There are a number of serious consequences of drinking alcohol excessively -------Excessive alcohol consumption is a leading preventable cause of in the [place]. --------Drinking alcohol increases the risk of traffic accidents, suicide, drowning, and other serious injuries. -------Alcohol use continues to be the leading cause of injuries treated in trauma centers and emergency departments . --------Alcohol-related liver disease may lead to end-stage liver disease (cirrhosis) and . --------Alcohol increases the risk of certain cancers of the mouth, esophagus, throat, liver, and breast. Code(s): Z13.39 - Encounter for screening examination for other mental health and behavioral disorders (13) LFT elevation: Code(s): R79.89 - Other specified abnormal findings of blood chemistry Plan Patient is 72-year-old female came in today for her physical exam appointment Colonoscopy was in 2020 Pap smear was 2020 patient says that she was told she does not needed anymore Mammogram May of this year Due for labs Blood pressure is stable patient is on amlodipine 10 mg She takes atorvastatin 20 mg daily for lipid control And levothyroxine 100 mcg for hypothyroidism.? Alcohol consumption discussed with the patient liver enzymes are elevated I would recommend that she stop drinking altogether Patient have a cardiac pacemaker in place, she continue to follow-up with the fullerette once a year Dual-chamber Medtronic pacemaker in place Cerumen impaction: Both ears were irrigated with good result patient tolerated procedure well. Psoriasis management through dermatology, she also different color she was of moves, she will discuss it with the Dermatology at her upcoming appointment Follow-up 3M Orders: Orders Comprehensive [place]. Panel Fast Today E03.9 - Hypothyroidism, unspecified, E55.9 - Vitamin D deficiency, unspecified, E78.9 - Disorder of lipoprotein metabolism, unspecified, H61.23 - Impacted cerumen, bilateral, I10 - Essential (primary) hypertension, J45.909 - Unspecified asthma, uncomplicated, L40.9 - Psoriasis, unspecified, M85.80 - Other specified disorders of bone density and structure, unspecified site, R73.01 - Impaired fasting glucose, Z00.01 - Encounter for general adult medical examination with abnormal findings, Z95.0 - Presence of cardiac pacemaker Hemoglobin A1c Today E03.9 - Hypothyroidism, unspecified, E55.9 - Vitamin D deficiency, unspecified, E78.9 - Disorder of lipoprotein metabolism, unspecified, H61.23 - Impacted cerumen, bilateral, I10 - Essential (primary) hypertension, J45.909 - Unspecified asthma, uncomplicated, L40.9 - Psoriasis, unspecified, M85.80 - Other specified disorders of bone density and structure, unspecified site, R73.01 - Impaired fasting glucose, Z00.01 - Encounter for general adult medical examination with abnormal findings, Z95.0 - Presence of cardiac pacemaker Lipid Panel Today E03.9 - Hypothyroidism, unspecified, E55.9 - Vitamin D deficiency, unspecified, E78.9 - Disorder of lipoprotein metabolism, unspecified, H61.23 - Impacted cerumen, bilateral, I10 - Essential (primary) hypertension, J45.909 - Unspecified asthma, uncomplicated, L40.9 - Psoriasis, unspecified, M85.80 - Other specified disorders of bone density and structure, unspecified site, R73.01 - Impaired fasting glucose, Z00.01 - Encounter for general adult medical examination with abnormal findings, Z95.0 - Presence of cardiac pacemaker TSH reflex Free T4 Today E03.9 - Hypothyroidism, unspecified, E55.9 - Vitamin D deficiency, unspecified, E78.9 - Disorder of lipoprotein metabolism, unspecified, H61.23 - Impacted cerumen, bilateral, I10 - Essential (primary) hypertension, J45.909 - Unspecified asthma, uncomplicated, L40.9 - Psoriasis, unspecified, M85.80 - Other specified disorders of bone density and structure, unspecified site, R73.01 - Impaired fasting glucose, Z00.01 - Encounter for general adult medical examination with abnormal findings, Z95.0 - Presence of cardiac pacemaker Complete Blood Count Auto Diff Today E03.9 - Hypothyroidism, unspecified, E55.9 - Vitamin D deficiency, unspecified, E78.9 - Disorder of lipoprotein metabolism, unspecified, H61.23 - Impacted cerumen, bilateral, I10 - Essential (primary) hypertension, J45.909 - Unspecified asthma, uncomplicated, L40.9 - Psoriasis, unspecified, M85.80 - Other specified disorders of bone density and structure, unspecified site, R73.01 - Impaired fasting glucose, Z00.01 - Encounter for general adult medical examination with abnormal findings, Z95.0 - Presence of cardiac pacemaker Coding Level of Care Code Est Pt Prev Care >65y(72600) Diagnoses Encounter for general adult medical examination with abnormal findings Z00.01 Hypertension, essential I10 Lipid disorder E78.9 Hypothyroidism E03.9 Hypothyroidism type: unspecified Psoriasis L40.9 Impaired fasting blood sugar R73.01 Osteopenia M85.88 Osteopenia location: lumbar spine Asthma, mild J45.20 Asthma complication type: uncomplicated Asthma persistence: intermittent Vitamin D deficiency E55.9 Excessive cerumen in both ear canals H61.23 Cardiac pacemaker in situ Z95.0 Screening for alcohol problem Z13.39 LFT elevation R79.89 CPT Codes Office Procedure - CPT: 14921-Uks Irrigation/Lavage ([id number]) Additional Codes KM-7 Assessment Billing - KM-7 Assessment Tool: KM-7 Assessment 72726 ([id number])
== END 2022-11-14 14:31 | disposition home or self-care (01) ==
PROVIDERS: Visit Provider Internal Medicine
DX: H61.23 Impacted cerumen, bilateral (principal)
CPT/HCPCS: 69209; 99397

== ENCOUNTER 2023-02-14 08:04 | Outpatient (REF) | payer MEDICARE, SELFPAY ==
[2023-02-14 11:28] LABS: MANUAL DIFF FLAG NO
[2023-02-14 11:34] LABS: Basophils Absolute Auto 0.1 X10*3/uL (0.0-0.2); Basophils Percent Auto 1.1 % (0-2); Eosinophils Absolute Auto 0.4 X10*3/uL (0.0-0.4); Eosinophils Percent Auto 4.3 % (0-4); Hematocrit 43.9 % (37.0-47.0); Hemoglobin 15.1 g/dl (12.0-16.0); Imm Gran Abs Auto 0.02 X10*3/uL (0.00-0.03); Imm Gran Pct Auto 0.2 % (0.0-0.4); Lymphocytes Absolute Auto 2.2 X10*3/uL (1.2-4.9); Lymphocytes Percent Auto 26.3 % (20-40); Mean Corpuscular HGB Conc 34.4 g/dl (31.0-35.0); Mean Corpuscular Hemoglobin 32.5 pg (27.0-33.0); Mean Corpuscular Volume 94.4 fL (80.0-98.0); Mean Platelet Volume 10.4 fL (9.4-12.3); Monocytes Absolute Auto 0.8 X10*3/uL (0.1-1.2); Monocytes Percent Auto 9.1 % (2-11); Neutrophils Absolute Auto 4.9 x10*3/uL (2.0-8.3); Platelet Count 291 X10*3/uL (160-400); Red Blood Count 4.65 X10*6/uL (4.20-5.50); Red Cell Distribution Width 13.9 % (11.0-16.0); White Blood Count 8.3 X10*3/uL (4.8-10.8)
[2023-02-14 11:56] LABS: Estimated Average Glucose 114 mg/dL; Hemoglobin A1C 151.9493 umol/L; Hemoglobin A1c % 5.6 % (<6.0)
[2023-02-14 12:02] LABS: Alanine Aminotransferase 43 U/L (0-31); Albumin Level 4.2 g/dL (3.5-5.0); Alkaline Phosphatase 121 U/L (39-117); Anion Gap 11 (12-20); Aspartate Amino Transferase 27 U/L (5-31); Bilirubin Total 0.5 mg/dL (0.0-1.0); Blood Urea Nitrogen 12 mg/dL (9-16); Calcium 9.3 mg/dL (8.4-10.2); Carbon Dioxide 28 mmol/L (22-29); Chloride 104 mmol/L (96-108); Cholesterol 139 mg/dL (<200); Estimated Glomerular Filt Rate > 60; Glucose Fasting 121 mg/dL (60-99); HDL Cholesterol 44 mg/dL (>40); LDL Cholesterol Calculated 75 mg/dL (<100); Potassium 3.9 mmol/L (3.3-5.1); Sodium 139 mmol/L (135-145); Total Protein 7.8 g/dL (6.5-8.0); Triglycerides 103 mg/dL (<150)
[2023-02-14 12:09] LABS: TSH reflex Free T4 2.89 uIU/mL (0.32-4.0)
== END 2023-02-14 08:05 | disposition home or self-care (01) ==
LOC: HO.HMGCLDS 08:04
PROVIDERS: PCP Internal Medicine; Visit Provider Internal Medicine
DX: Z00.01 Encounter for general adult medical examination with abnormal findings (principal); I10 Essential (primary) hypertension; E78.9 Disorder of lipoprotein metabolism, unspecified; E03.9 Hypothyroidism, unspecified; L40.9 Psoriasis, unspecified; R73.01 Impaired fasting glucose; M85.80 Other specified disorders of bone density and structure, unspecified site; J45.909 Unspecified asthma, uncomplicated; E55.9 Vitamin D deficiency, unspecified; H61.23 Impacted cerumen, bilateral; Z95.0 Presence of cardiac pacemaker
CPT/HCPCS: 36415; 80053; 80061; 83036; 84443; 85025

== ENCOUNTER 2023-02-14 09:23 | Outpatient (AMB) | payer MEDICARE, SELFPAY ==
[2023-02-14 09:35] VITALS: BP 104/52; PULSE 82; O2SAT 96; BMI 25.5
--- NOTE | 2023-02-14 09:35 | MHC.PC.OV ---
Vital Signs 02/14/23 09:35 Height 5 ft 8 in Weight 167 lb 8 oz BMI 25.5 BP 104/52 L Blood Pressure Location Rt brachial Position Sitting Pulse 82 Pulse Source Pulse Oximeter Pulse Oximetry (%) 96 Oxygen Delivery Method Room Air Intake Visit Reasons: 3 Month follow up Allergies Sulfa (Sulfonamide Antibiotics) [SULFA (SULFONAMIDE ANTIBIOTICS)] Allergy (Severe, Verified 02/14/23 09:37) RASH ALL OVER BODY,FACE, rash Penicillins Allergy (Mild, Verified 02/14/23 09:37) THROAT SWELLING lisinopril Allergy (Unknown, Verified 02/14/23 09:37) cough penicillin V Allergy (Unknown, Verified 02/14/23 09:37) tongue banana [BANANA] Adverse Reaction (Severe, Verified 02/14/23 09:37) STOMACH UPSET/PAIN hazelnut [HAZELNUT] Adverse Reaction (Intermediate, Verified 02/14/23 09:37) UPSET STOMACH Medication List - Last Reconciled 02/14/23 by Cole Mei MD amlodipine 10 mg PO DAILY 90 days atorvastatin 20 mg PO DAILY 90 days levothyroxine 100 mcg PO DAILY 90 days Tobacco use date assessed: 02/14/23 Fall risk assessment: No Falls in past year Last assessed Fall Risk: 02/14/23 Dental Screening Dental Screen Date: 02/14/23 Did you have a dental visit in the last 12 months?: No Did you have a dental problem in the last 6 months where you did not have access to dental care?: No Was dental information given to patient?: No HPI 3 Month follow up HPI Details Patient is 72-year-old female came in today for her regular follow-up Blood pressure is stable patient is on amlodipine 10 mg She takes atorvastatin 20 mg daily for lipid control And levothyroxine 100 mcg for hypothyroidism.? Patient have a cardiac pacemaker in place, she continue to follow-up with the net sql developer once a year Dual-chamber Medtronic pacemaker in place Cerumen impaction: Both ears were irrigated with good result patient tolerated procedure well. Psoriasis management through dermatology Osteopenia, I would recommend calcium rich foods and weight-bearing exercises Follow-up 3M PFSH Medical History Cardiac pacemaker in situ SSS (sick sinus syndrome) Aortic stenosis Excessive cerumen in both ear canals Vitamin D deficiency Asthma, mild Osteopenia Impaired fasting blood sugar Psoriasis Hypothyroidism Lipid disorder Hypertension, essential Surgical History History of colonoscopy History of cystoscopy History of tooth extraction Family History Father History of CVA (cerebrovascular accident) HTN (hypertension) Depression Mother History of CVA (cerebrovascular accident) CAD (coronary artery disease) HTN (hypertension) Colitis Sister Myocardial infarction CAD (coronary artery disease) Colitis Brother Diabetes mellitus Maternal Aunt Breast cancer CAD (coronary artery disease) HTN (hypertension) Maternal Grandfather No problems noted. Maternal Grandmother No problems noted. Paternal Grandfather No problems noted. Paternal Grandmother No problems noted. Son No problems noted. Son No problems noted. Daughter No problems noted. Social History Housing: House Alcohol intake: current Alcohol intake frequency: a few times a week Patient Tobacco Use Status: Former Tobacco user Tobacco use type: Cigarette Cigarette Packs Per Day: 1 e-Cigarette/Vaping Use: Never Used service: No Current occupational status: retired Cognitive needs: No Hearing needs: No Vision needs: No Female Reproductive History Menstrual Age of Menarche: 13 Questionnaire PHQ-9 Over the last 2 weeks, how often have you been bothered by any of the following problems? 1. Little interest or pleasure in doing things: not at all 2. Feeling down, depressed, or hopeless: not at all 3. Trouble falling or staying asleep, or sleeping too much: several days 4. Feeling tired or having little energy: not at all 5. Poor appetite or overeating: not at all 6. Feeling bad about yourself - or that you are a failure or have let yourself or your family down: not at all 7. Trouble concentrating on things, such as reading the newspaper or watching television: not at all 8. Moving or speaking so slowly that other people could have noticed. Or the opposite - being so fidgety or restless that you have been moving around a lot more than usual: not at all 9. Thoughts that you would be better off or of hurting yourself in some way: not at all Total score: 1 Depression Screening Interpretation: Negative Depression Screening Done: Yes 63392 - PHQ-9 Billing: Yes Source: Developed by Drs. Sylvester Morel, Quiana Trevizo, Asif Shaffer and colleagues, with an educational vanda from [employer]. Thrive Questionnaire Date Thrive assessed: 11/14/22 AUDIT C Alcohol Use Questionnaire (AUDIT-C) 1. How often do you have a drink containing alcohol?: 2-4 times a month 2. How many drinks containing alcohol do you have on a typical day when you are drinking?: 3 or 4 3. How often do you have six or more drinks on one occasion?: Never Total Score: 3 Score Reviewed/Action Taken: Yes KM-7 AMB Questionnaire KM-7 Date KM - 7 assessed: 11/14/22 Source: Developed by Drs. Sylvester Morel, Quiana Trevizo, Asif Shaffer and colleagues, with an educational vanda from [employer]. Review of Systems Const Denies chills and Denies fever(s) ENT Denies epistaxis and Denies nasal discharge Card Denies chest pain Resp Denies chest congestion, Denies cough and Denies hemoptysis GI Denies diarrhea and Denies nausea Skin/Breast Denies rash Neuro Reports no additional complaints Psych Reports no additional complaints Endo Reports no additional complaints Physical exam (Primary Care) Vital Signs: Last Vital Signs Pulse 82 02/14/23 09:35 BP 104/52 L 02/14/23 09:35 Pulse Ox 96 02/14/23 09:35 Oxygen Delivery Method Room Air 02/14/23 09:35 BMI result Body Mass Index 25.5 Tobacco/Smoking Status: Tobacco use Status Tobacco use date assessed 02/14/23 02/14/23 09:38 Patient Tobacco Use Status Former Tobacco user 02/14/23 09:38 Tobacco use type Cigarette 02/14/23 09:38 e-Cigarette/Vaping Use Never Used 02/14/23 09:38 PHQ-9: PHQ-9 Score PHQ-9: Total score 1 02/14/23 10:15 Depression Screening Interpretation: Negative Thrive Assessment: Date of Thrive Assessment Date Thrive assessed 11/14/22 02/14/23 09:38 Const General: cooperative, comfortable and no acute distress Orientation/consciousness: patient oriented x3 HENMT Head: Yes normocephalic Eyes General: appearance normal, both eyes and all related structures Neck Neck: Yes supple Resp Effort & Inspection: normal respiratory effort, no cough and no stridor Cardio Rhythm: regular rhythm Heart sounds: S1 normal heart sound present and S2 normal heart sound present Skin General skin exam: turgor normal Neuro General: patient oriented x3, tone normal and moves all extremities Extrem Right lower extremity: no edema Left lower extremity: no edema Office Procedures Cerumen Removal From which ear canal was the cerumen removed: bilateral Removal: irrigation Notes: patient tolerated procedure well, no complications and ear canal clear [id number] Irrigation/Lavage Assessment and Plan Assessment & Plan (1) Hypertension, essential: Code(s): I10 - Essential (primary) hypertension (2) Lipid disorder: Code(s): E78.9 - Disorder of lipoprotein metabolism, unspecified (3) Hypothyroidism: Code(s): E03.9 - Hypothyroidism, unspecified Qualifiers: Hypothyroidism type: unspecified Qualified Code(s): E03.9 - Hypothyroidism, unspecified (4) Psoriasis: Code(s): L40.9 - Psoriasis, unspecified (5) Impaired fasting blood sugar: Code(s): R73.01 - Impaired fasting glucose (6) Osteopenia: Code(s): M85.80 - Other specified disorders of bone density and structure, unspecified site Qualifiers: Osteopenia location: lumbar spine Qualified Code(s): M85.88 - Other specified disorders of bone density and structure, other site (7) Asthma, mild: Code(s): J45.909 - Unspecified asthma, uncomplicated Qualifiers: Asthma complication type: uncomplicated Asthma persistence: intermittent Qualified Code(s): J45.20 - Mild intermittent asthma, uncomplicated (8) Vitamin D deficiency: Code(s): E55.9 - Vitamin D deficiency, unspecified (9) Excessive cerumen in both ear canals: Code(s): H61.23 - Impacted cerumen, bilateral (10) Cardiac pacemaker in situ: Comment: Dual-chamber Medtronic pacemaker for sick sinus syndrome Code(s): Z95.0 - Presence of cardiac pacemaker (11) LFT elevation: Code(s): R79.89 - Other specified abnormal findings of blood chemistry Plan Patient is 72-year-old female came in today for her regular follow-up Blood pressure is stable patient is on amlodipine 10 mg She takes atorvastatin 20 mg daily for lipid control And levothyroxine 100 mcg for hypothyroidism.? Patient have a cardiac pacemaker in place, she continue to follow-up with the net sql developer once a year Dual-chamber Medtronic pacemaker in place Cerumen impaction: Both ears were irrigated with good result patient tolerated procedure well. Psoriasis management through dermatology Osteopenia, I would recommend calcium rich foods and weight-bearing exercises Continue vitamin-D supplement Diet-controlled for impaired fasting sugar Patient had labs this morning reports not available yet Follow-up 3M Medications: Refilled levothyroxine 100 mcg PO DAILY 90 tabs 1RF 90 days amlodipine 10 mg PO DAILY 90 tabs 1RF 90 days atorvastatin 20 mg PO DAILY 90 tabs 1RF 90 days Coding Level of Care Code Est Pt Level 4 (93116) Diagnoses Hypertension, essential I10 Lipid disorder E78.9 Hypothyroidism, unspecified type E03.9 Hypothyroidism type: unspecified Psoriasis L40.9 Impaired fasting blood sugar R73.01 Osteopenia of lumbar spine M85.88 Osteopenia location: lumbar spine Mild intermittent asthma without complication J45.20 Asthma complication type: uncomplicated Asthma persistence: intermittent Vitamin D deficiency E55.9 Excessive cerumen in both ear canals H61.23 Cardiac pacemaker in situ Z95.0 LFT elevation R79.89 CPT Codes Office Procedure - CPT: 68319-Mii Irrigation/Lavage ([id number])
== END 2023-02-14 12:21 | disposition home or self-care (01) ==
PROVIDERS: PCP Internal Medicine; Visit Provider Internal Medicine
DX: I10 Essential (primary) hypertension (principal); E78.9 Disorder of lipoprotein metabolism, unspecified; E03.9 Hypothyroidism, unspecified; L40.9 Psoriasis, unspecified; H61.23 Impacted cerumen, bilateral; R73.01 Impaired fasting glucose; M85.88 Other specified disorders of bone density and structure, other site; J45.20 Mild intermittent asthma, uncomplicated; E55.9 Vitamin D deficiency, unspecified; Z95.0 Presence of cardiac pacemaker; R79.89 Other specified abnormal findings of blood chemistry
CPT/HCPCS: 69209; 99214

== ENCOUNTER 2023-05-10 09:24 | Outpatient (REF) | payer MEDICARE, SELFPAY ==
[2023-05-10 11:49] LABS: Estimated Average Glucose 111 mg/dL; Hemoglobin A1c % 5.5 % (<6.0)
[2023-05-10 12:17] LABS: Alanine Aminotransferase 41 U/L (0-31); Albumin Level 4.3 g/dL (3.5-5.0); Alkaline Phosphatase 123 U/L (39-117); Anion Gap 13 (12-20); Aspartate Amino Transferase 25 U/L (5-31); Bilirubin Total 0.6 mg/dL (0.0-1.0); Blood Urea Nitrogen 12 mg/dL (9-16); Calcium 9.4 mg/dL (8.4-10.2); Carbon Dioxide 28 mmol/L (22-29); Chloride 105 mmol/L (96-108); Estimated Glomerular Filt Rate > 60; Glucose Random 109 mg/dL (60-115); Potassium 3.5 mmol/L (3.3-5.1); Sodium 142 mmol/L (135-145); Total Protein 7.8 g/dL (6.5-8.0)
== END 2023-05-10 09:25 | disposition home or self-care (01) ==
LOC: HO.HMGCLDS 09:24
PROVIDERS: PCP Internal Medicine; Visit Provider Internal Medicine
DX: I10 Essential (primary) hypertension (principal); E78.9 Disorder of lipoprotein metabolism, unspecified; E03.9 Hypothyroidism, unspecified; R73.01 Impaired fasting glucose
CPT/HCPCS: 36415; 80053; 83036

== ENCOUNTER 2023-05-16 09:59 | Outpatient (AMB) | payer MEDICARE, SELFPAY ==
--- NOTE | 2023-05-16 10:06 | A.OFFPC_ITS ---
Vital Signs 05/16/23 10:07 Height 5 ft 8 in Weight 165 lb 6 oz BMI 25.1 BP 136/66 Blood Pressure Location Lt brachial Position Sitting Pulse 88 Pulse Source Pulse Oximeter Pulse Oximetry (%) 96 Oxygen Delivery Method Room Air Intake Visit Reasons: 6 Month follow up Allergies Sulfa (Sulfonamide Antibiotics) [SULFA (SULFONAMIDE ANTIBIOTICS)] Allergy (Severe, Verified 05/16/23 10:07) RASH ALL OVER BODY,FACE, rash Penicillins Allergy (Mild, Verified 05/16/23 10:07) THROAT SWELLING lisinopril Allergy (Unknown, Verified 05/16/23 10:07) cough penicillin V Allergy (Unknown, Verified 05/16/23 10:07) tongue banana [BANANA] Adverse Reaction (Severe, Verified 05/16/23 10:07) STOMACH UPSET/PAIN hazelnut [HAZELNUT] Adverse Reaction (Intermediate, Verified 05/16/23 10:07) UPSET STOMACH Medication List - Last Reconciled 05/16/23 by Cole Mei MD amlodipine 10 mg PO DAILY 90 days atorvastatin 20 mg PO DAILY 90 days levothyroxine 100 mcg PO DAILY 90 days Tobacco use date assessed: 05/16/23 Fall risk assessment: No Falls in past year Last assessed Fall Risk: 05/16/23 Dental Screening Dental Screen Date: 05/16/23 Did you have a dental visit in the last 12 months?: Yes Did you have a dental problem in the last 6 months where you did not have access to dental care?: No Was dental information given to patient?: Patient has dentist HPI 6 Month follow up HPI Details Patient is 72-year-old female came in today for her regular follow-up Patient says that middle march her lips swell up and she was having burning sensation inside the lips Patient says that she is not able to figure out what caused it, she took Benadryl Swelling resolved however since then she is having chapping of her lips And once in a while she also feel burning sensation inside the mouth I have recommended for the patient to stop drinking all alcoholic beverages as they are acidic and we worse in the problem For the lips she may try using [id number]-[id number] hydrocortisone cream at night only outside Patient is to get back to me in a week or so to let me know how she is doing Otherwise she will need to see a specialist Labs done recently reviewed with the patient Patient have impaired fasting sugar hemoglobin A1c is within normal range LFTs are elevated but stable we will continue to monitor Blood pressure is stable patient is on amlodipine 10 mg She takes atorvastatin 20 mg daily for lipid control And levothyroxine 100 mcg for hypothyroidism.? Patient have a cardiac pacemaker in place, she continue to follow-up with the associate professor physician once a year Dual-chamber Medtronic pacemaker in place Cerumen impaction: Both ears were irrigated with good result patient tolerated procedure well. Psoriasis management through dermatology Osteopenia, I would recommend calcium rich foods and weight-bearing exercises Follow-up 3M PFSH Medical History Cardiac pacemaker in situ SSS (sick sinus syndrome) Aortic stenosis Excessive cerumen in both ear canals Vitamin D deficiency Asthma, mild Osteopenia Impaired fasting blood sugar Psoriasis Hypothyroidism Lipid disorder Hypertension, essential Surgical History History of colonoscopy History of cystoscopy History of tooth extraction Family History Father History of CVA (cerebrovascular accident) HTN (hypertension) Depression Mother History of CVA (cerebrovascular accident) CAD (coronary artery disease) HTN (hypertension) Colitis Sister Myocardial infarction CAD (coronary artery disease) Colitis Brother Diabetes mellitus Maternal Aunt Breast cancer CAD (coronary artery disease) HTN (hypertension) Maternal Grandfather No problems noted. Maternal Grandmother No problems noted. Paternal Grandfather No problems noted. Paternal Grandmother No problems noted. Son No problems noted. Son No problems noted. Daughter No problems noted. Social History Housing: House Alcohol intake: current Alcohol intake frequency: a few times a week Patient Tobacco Use Status: Former Tobacco user Tobacco use type: Cigarette Cigarette Packs Per Day: 1 e-Cigarette/Vaping Use: Never Used service: No Current occupational status: retired Cognitive needs: No Hearing needs: No Vision needs: No Female Reproductive History Menstrual Age of Menarche: 13 Questionnaire Thrive Questionnaire Date Thrive assessed: 11/14/22 AUDIT C Alcohol Use Questionnaire (AUDIT-C) 1. How often do you have a drink containing alcohol?: 2-4 times a month 2. How many drinks containing alcohol do you have on a typical day when you are drinking?: 3 or 4 3. How often do you have six or more drinks on one occasion?: Never Total Score: 3 Score Reviewed/Action Taken: Yes KM-7 AMB Questionnaire KM-7 Date KM - 7 assessed: 11/14/22 Source: Developed by Drs. Sylvester Morel, Quiana Trevizo, Asif montanez nd colleagues, with an educational vanda from [employer]. Review of Systems Const Denies chills and Denies fever(s) ENT Denies epistaxis and Denies nasal discharge Card Denies chest pain Resp Denies chest congestion, Denies cough and Denies hemoptysis GI Denies diarrhea and Denies nausea Skin/Breast Denies rash Neuro Reports no additional complaints Psych Reports no additional complaints Endo Reports no additional complaints Physical exam (Primary Care) Vital Signs: Last Vital Signs Pulse 88 05/16/23 10:07 BP 136/66 05/16/23 10:07 Pulse Ox 96 05/16/23 10:07 Oxygen Delivery Method Room Air 05/16/23 10:07 BMI result Body Mass Index 25.1 Tobacco/Smoking Status: Tobacco use Status Tobacco use date assessed 05/16/23 05/16/23 10:09 Patient Tobacco Use Status Former Tobacco user 05/16/23 10:09 Tobacco use type Cigarette 05/16/23 10:09 e-Cigarette/Vaping Use Never Used 05/16/23 10:09 Thrive Assessment: Date of Thrive Assessment Date Thrive assessed 11/14/22 05/16/23 10:09 Const General: cooperative, comfortable and no acute distress Orientation/consciousness: patient oriented x3 HENMT Other: Chapping of upper lip noticed, no lesion were seen inside the mouth Head: Yes normocephalic Eyes General: appearance normal, both eyes and all related structures Neck Neck: Yes supple Resp Effort & Inspection: normal respiratory effort, no cough and no stridor Cardio Rhythm: regular rhythm Heart sounds: S1 normal heart sound present and S2 normal heart sound present Skin General skin exam: turgor normal Neuro General: patient oriented x3, tone normal and moves all extremities Extrem Right lower extremity: no edema Left lower extremity: no edema Office Procedures Cerumen Removal From which ear canal was the cerumen removed: bilateral Removal: irrigation Notes: patient tolerated procedure well, no complications and ear canal clear [id number] Irrigation/Lavage Assessment and Plan Assessment & Plan (1) Hypertension, essential: Code(s): I10 - Essential (primary) hypertension (2) Lipid disorder: Code(s): E78.9 - Disorder of lipoprotein metabolism, unspecified (3) Hypothyroidism: Code(s): E03.9 - Hypothyroidism, unspecified Qualifiers: Hypothyroidism type: unspecified Qualified Code(s): E03.9 - Hypothyroidism, unspecified (4) Psoriasis: Code(s): L40.9 - Psoriasis, unspecified (5) Impaired fasting blood sugar: Code(s): R73.01 - Impaired fasting glucose (6) Osteopenia: Code(s): M85.80 - Other specified disorders of bone density and structure, unspecified site Qualifiers: Osteopenia location: lumbar spine Qualified Code(s): M85.88 - Other specified disorders of bone density and structure, other site (7) Asthma, mild: Code(s): J45.909 - Unspecified asthma, uncomplicated Qualifiers: Asthma complication type: uncomplicated Asthma persistence: intermittent Qualified Code(s): J45.20 - Mild intermittent asthma, uncomplicated (8) Vitamin D deficiency: Code(s): E55.9 - Vitamin D deficiency, unspecified (9) Excessive cerumen in both ear canals: Code(s): H61.23 - Impacted cerumen, bilateral (10) Cardiac pacemaker in situ: Comment: Dual-chamber Medtronic pacemaker for sick sinus syndrome Code(s): Z95.0 - Presence of cardiac pacemaker (11) LFT elevation: Code(s): R79.89 - Other specified abnormal findings of blood chemistry (12) Chapped lips: Code(s): K13.0 - Diseases of lips Plan Patient is 72-year-old female came in today for her regular follow-up Patient says that middle lobe Etta her lips swell up and she was having burning sensation inside the lips Patient says that she is not able to figure out what caused it, she took Benadryl Swelling resolved however since then she is having chapping of her lips And once in a while she also feel burning sensation inside the mouth I have recommended for the patient to stop drinking all alcoholic beverages as they are acidic and we worse in the problem For the lips she may try using [id number] hydrocortisone cream at night only outside Patient is to get back to me in a week or so to let me know how she is doing Otherwise she will need to see a specialist Labs done recently reviewed with the patient Patient have impaired fasting sugar hemoglobin A1c is within normal range LFTs are elevated but stable we will continue to monitor Blood pressure is stable patient is on amlodipine 10 mg She takes atorvastatin 20 mg daily for lipid control And levothyroxine 100 mcg for hypothyroidism.? Patient have a cardiac pacemaker in place, she continue to follow-up with the associate professor physician once a year Dual-chamber Medtronic pacemaker in place Cerumen impaction: Both ears were irrigated with good result patient tolerated procedure well. Psoriasis management through dermatology Osteopenia, I would recommend calcium rich foods and weight-bearing exercises Follow-up 3M Medications: Refilled amlodipine 10 mg PO DAILY 90 tabs 1RF 90 days atorvastatin 20 mg PO DAILY 90 tabs 1RF 90 days levothyroxine 100 mcg PO DAILY 90 tabs 1RF 90 days Coding Level of Care Code Est Pt Level 4 (40109) Diagnoses Hypertension, essential I10 Lipid disorder E78.9 Hypothyroidism, unspecified type E03.9 Hypothyroidism type: unspecified Psoriasis L40.9 Impaired fasting blood sugar R73.01 Osteopenia of lumbar spine M85.88 Osteopenia location: lumbar spine Mild intermittent asthma without complication J45.20 Asthma complication type: uncomplicated Asthma persistence: intermittent Vitamin D deficiency E55.9 Excessive cerumen in both ear canals H61.23 Cardiac pacemaker in situ Z95.0 LFT elevation R79.89 Chapped lips K13.0 CPT Codes Office Procedure - CPT: 91992-Bye Irrigation/Lavage ([id number])
[2023-05-16 10:07] VITALS: BP 136/66; PULSE 88; O2SAT 96; BMI 25.1
== END 2023-05-16 10:32 | disposition home or self-care (01) ==
PROVIDERS: PCP Internal Medicine; Visit Provider Internal Medicine
DX: I10 Essential (primary) hypertension (principal); E78.9 Disorder of lipoprotein metabolism, unspecified; E03.9 Hypothyroidism, unspecified; L40.9 Psoriasis, unspecified; R73.01 Impaired fasting glucose; M85.88 Other specified disorders of bone density and structure, other site; J45.20 Mild intermittent asthma, uncomplicated; E55.9 Vitamin D deficiency, unspecified; H61.23 Impacted cerumen, bilateral; Z95.0 Presence of cardiac pacemaker; R79.89 Other specified abnormal findings of blood chemistry; K13.0 Diseases of lips
CPT/HCPCS: 69209; 99214

== ENCOUNTER 2023-05-23 12:56 | Outpatient (REF) | payer MEDICARE, SELFPAY ==
--- NOTE | ~2023-05-23 | MM_ITS ---
EXAMINATION: MM SCREENING DIGITAL BREAST TOMOSYNTHESIS, BILATERAL CLINICAL INFORMATION: Screening. Asymptomatic. COMPARISON: Mammography: This study is compared with prior exams dating back to 2018. TECHNIQUE: Digital breast tomosynthesis is performed in both the craniocaudal and mediolateral oblique views along with computer-aided detection (CAD). Synthesized 2D images are generated from the tomosynthesis. FINDINGS: The breasts are almost entirely fatty (ACR BI-RADS breast composition Category a). There are no significant masses, abnormal calcifications, or other abnormalities. There is a pacemaker in the superior aspect of the left breast. MM/MM tomosynthesis screening BI IMPRESSION: No mammographic evidence of malignancy. ASSESSMENT: BI-RADS BI-RADS 1 - Negative RECOMMENDATION: Routine annual mammography screening. 1 year F/U This examination should not preclude the clinical evaluation of a suspicious palpable abnormality. This patient's information was entered into a reminder system with a target due date for their next mammogram.
== END 2023-05-23 12:57 | disposition home or self-care (01) ==
LOC: HO.MAMMO 12:56
PROVIDERS: PCP Internal Medicine; Visit Provider Internal Medicine
DX: Z12.31 Encounter for screening mammogram for malignant neoplasm of breast (principal)
CPT/HCPCS: 77063; 77067

== ENCOUNTER → 2023-05-23 13:00 | Outpatient (BNV) | payer MEDICARE, SELFPAY | PROVIDERS: PCP Internal Medicine; Visit Provider Radiology Diagnostic Radiology | DX: Z12.31 Encounter for screening mammogram for malignant neoplasm of breast (principal) | CPT/HCPCS: 77063; 77067 ==

== ENCOUNTER 2023-06-13 11:20 | Outpatient (AMB) | payer MEDICARE, SELFPAY ==
--- NOTE | 2023-06-13 11:41 | A.OFFVIS_ITS ---
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: No Spot Sprayer: Spot Sprayer Present Accompanied by: Spouse Allergies Sulfa (Sulfonamide Antibiotics) [SULFA (SULFONAMIDE ANTIBIOTICS)] Allergy (Severe, Verified 05/16/23 10:07) RASH ALL OVER BODY,FACE, rash Penicillins Allergy (Mild, Verified 05/16/23 10:07) THROAT SWELLING lisinopril Allergy (Unknown, Verified 05/16/23 10:07) cough penicillin V Allergy (Unknown, Verified 05/16/23 10:07) tongue banana [BANANA] Adverse Reaction (Severe, Verified 05/16/23 10:07) STOMACH UPSET/PAIN hazelnut [HAZELNUT] Adverse Reaction (Intermediate, Verified 05/16/23 10:07) UPSET STOMACH Medication List - Last Reconciled 06/13/23 by Jerome Pappas MD amlodipine 10 mg PO DAILY 90 days atorvastatin 20 mg PO DAILY 90 days levothyroxine 100 mcg PO DAILY 90 days HPI HPI Comments History of Present Illness Details Corinne comes for follow up. She denies any cardiac symptoms. She is accompanied by her . She remains very active. Denies any symptoms of palpitations. No lightheadedness, syncope. No exertional chest pain or shortness of breath. Takes all her medications. Does not monitor blood pressure at home. Denies any heart failure symptoms. [facility] Medical History Cardiac pacemaker in situ SSS (sick sinus syndrome) Aortic stenosis Excessive cerumen in both ear canals Vitamin D deficiency Asthma, mild Osteopenia Impaired fasting blood sugar Psoriasis Hypothyroidism Lipid disorder Hypertension, essential Surgical History History of colonoscopy History of cystoscopy History of tooth extraction Family History Father History of CVA (cerebrovascular accident) HTN (hypertension) Depression Mother History of CVA (cerebrovascular accident) CAD (coronary artery disease) HTN (hypertension) Colitis Sister Myocardial infarction CAD (coronary artery disease) Colitis Brother Diabetes mellitus Maternal Aunt Breast cancer CAD (coronary artery disease) HTN (hypertension) Maternal Grandfather No problems noted. Maternal Grandmother No problems noted. Paternal Grandfather No problems noted. Paternal Grandmother No problems noted. Son No problems noted. Son No problems noted. Daughter No problems noted. Social History Housing: House Alcohol intake: current Alcohol intake frequency: a few times a week Patient Tobacco Use Status: Former Tobacco user Tobacco use type: Cigarette Cigarette Packs Per Day: 1 e-Cigarette/Vaping Use: Never Used service: No Current occupational status: retired Cognitive needs: No Hearing needs: No Vision needs: No Female Reproductive History Menstrual Age of Menarche: 13 Review of Systems Const Denies chills, Denies fatigue, Denies fever(s), Denies frequent falls, Denies weakness, Denies weight gain and Denies weight loss ENT Denies dizziness Card Denies chest pain, Denies leg edema, Denies lightheadedness, Denies palpitations, Denies dyspnea, Denies dyspnea on exertion, Denies orthopnea and Denies other (loss of consciousness) Resp Denies cough, Denies dyspnea and Denies dyspnea on exertion GI Denies hematochezia and Denies change in stool character Musc Denies abnormal gait, Denies muscle weakness, Denies numbness, Denies radiating pain into limb and Denies tingling Neuro Denies abnormal gait, Denies dizziness, Denies frequent falls, Denies numbness, Denies tingling and Denies weakness Endo Denies fatigue and Denies palpitations Physical Exam Vital Signs: Last Vital Signs Pulse 72 06/13/23 11:42 BP 118/72 06/13/23 11:42 BMI result Body Mass Index 24.5 Const General: cooperative, healthy appearing, comfortable and no acute distress Orientation/consciousness: patient oriented x3 Neck Neck: Yes normal visual inspection and Yes no JVD Carotids: normal carotid upstroke Resp Effort & Inspection: normal respiratory effort Auscultation: clear to auscultation bilaterally, no crackles, no rales, no rhonchi and no wheezes Cardio Jugular venous distension: no JVD Rate: regular rate Rhythm: regular rhythm Heart sounds: S1 normal heart sound present, S2 normal heart sound present, no gallops, Murmur heart sound present systolic early and no rubs Peripheral pulses: Peripheral pulses 2+ throughout GI Inspection: Yes normal to inspection Neuro General: patient oriented x3 Extrem General: Yes normal to inspection, No no pedal edema and No calf tenderness Office Procedures Cardiac Device Check Cardiac Device Check Details: Dual-chamber Medtronic pacemaker in place. Programmed in MVP mode with rate response. Atrial pacing about 10% time. One episode of high ventricular rate noted consistent with SVT. Atrial and ventricular sensing is adequate. Atrial pacing thresholds excellent. Ventricular pacing thresholds elevated as before but patient has barely any pacing in the ventricle. Battery life is at about 3 years [id number] Cardiac Device Check, pacemaker dual lead Procedure code (CPT) selection complete EKG Details: EKG shows normal sinus rhythm with normal EKG [id number], Complete Assessment & Plan Assessment & Plan (1) Cardiac pacemaker in situ: Comment: Dual-chamber Medtronic pacemaker for sick sinus syndrome Code(s): Z95.0 - Presence of cardiac pacemaker Plan: Cardiac pacemaker in-situ for sick sinus syndrome. Pacemaker is working well. Will continue to monitor remotely although it seems like she has not been. Will follow up in the clinic in 1 year's time. (2) Hypertension, essential: Code(s): I10 - Essential (primary) hypertension Plan: Hypertension which is currently well optimized advised to monitor blood pressure at home maintain a log. Goal blood pressure less than 130/80. Low-salt diet was discussed. Continue statin therapy with target goal LDL less than 100 mg/dL. Continue participate in physical activity as tolerated. Advised to call me with any new symptoms with exertion. Will follow up in the clinic in 1 year's time, sooner p.r.n.. Thank you for allowing me to partake in her care Coding Level of Care Code Est Pt Level 4 (37514) Diagnoses Cardiac pacemaker in situ Z95.0 Hypertension, essential I10 CPT Codes Cardiac Device Check - Cardiac Device 2: 06360-AR Cardiac Device Check, pacemaker dual lead ([id number]) EKG - CPT: 25245-Mblbzlwixroajnult, Complete ([id number])
[2023-06-13 11:42] VITALS: BP 118/72; PULSE 72; BMI 24.5
== END 2023-06-13 12:57 | disposition home or self-care (01) ==
PROVIDERS: Visit Provider Internal Medicine Cardiovascular Disease
DX: Z95.0 Presence of cardiac pacemaker (principal); I10 Essential (primary) hypertension
CPT/HCPCS: 93010; 93280; 99214

== ENCOUNTER → 2023-06-13 11:20 | Outpatient (BNVA) | payer MEDICARE, SELFPAY | PROVIDERS: Visit Provider Internal Medicine Cardiovascular Disease | DX: I10 Essential (primary) hypertension (principal); Z45.018 Encounter for adjustment and management of other part of cardiac pacemaker | CPT/HCPCS: 93005; 93280; 99212 ==

== ENCOUNTER → 2023-06-18 23:59 | Outpatient (BNV) | payer MEDICARE, SELFPAY ==
--- NOTE | 2023-06-19 14:06 | MHC.OFFVIS ---
Intake Intake Visit Reasons: Remote Device Check- Medtronic Allergies Sulfa (Sulfonamide Antibiotics) [SULFA (SULFONAMIDE ANTIBIOTICS)] Allergy (Severe, Verified 05/16/23 10:07) RASH ALL OVER BODY,FACE, rash Penicillins Allergy (Mild, Verified 05/16/23 10:07) THROAT SWELLING lisinopril Allergy (Unknown, Verified 05/16/23 10:07) cough penicillin V Allergy (Unknown, Verified 05/16/23 10:07) tongue banana [BANANA] Adverse Reaction (Severe, Verified 05/16/23 10:07) STOMACH UPSET/PAIN hazelnut [HAZELNUT] Adverse Reaction (Intermediate, Verified 05/16/23 10:07) UPSET STOMACH PFSH Medical History Cardiac pacemaker in situ SSS (sick sinus syndrome) Aortic stenosis Excessive cerumen in both ear canals Vitamin D deficiency Asthma, mild Osteopenia Impaired fasting blood sugar Psoriasis Hypothyroidism Lipid disorder Hypertension, essential Surgical History History of colonoscopy History of cystoscopy History of tooth extraction Family History Father History of CVA (cerebrovascular accident) HTN (hypertension) Depression Mother History of CVA (cerebrovascular accident) CAD (coronary artery disease) HTN (hypertension) Colitis Sister Myocardial infarction CAD (coronary artery disease) Colitis Brother Diabetes mellitus Maternal Aunt Breast cancer CAD (coronary artery disease) HTN (hypertension) Maternal Grandfather No problems noted. Maternal Grandmother No problems noted. Paternal Grandfather No problems noted. Paternal Grandmother No problems noted. Son No problems noted. Son No problems noted. Daughter No problems noted. Social History Housing: House Alcohol intake: current Alcohol intake frequency: a few times a week Patient Tobacco Use Status: Former Tobacco user Tobacco use type: Cigarette Cigarette Packs Per Day: 1 e-Cigarette/Vaping Use: Never Used service: No Current occupational status: retired Cognitive needs: No Hearing needs: No Vision needs: No Female Reproductive History Menstrual Age of Menarche: 13 Office Procedures Cardiac Device Check Cardiac Device Check Details: Remote pacemaker report generated 06/18/2023. Pacemaker function is adequate [id number] Cardiac Device Interrogation, pacemaker Procedure code (CPT) selection complete Assessment & Plan Assessment & Plan (1) Cardiac pacemaker in situ: Comment: Dual-chamber Medtronic pacemaker for sick sinus syndrome Code(s): Z95.0 - Presence of cardiac pacemaker Plan: See above Coding Level of Care Code Procedure Only Diagnoses Cardiac pacemaker in situ Z95.0 CPT Codes Cardiac Device Check - Cardiac Device 12: [id number] Cardiac Device Interrogation, pacemaker ([id number])
== END ==
PROVIDERS: PCP Internal Medicine; Visit Provider Internal Medicine Cardiovascular Disease
DX: Z95.0 Presence of cardiac pacemaker (principal)
CPT/HCPCS: 93294

== ENCOUNTER 2023-08-15 09:44 | Outpatient (AMB) | payer MEDICARE, SELFPAY ==
[2023-08-15 09:55] VITALS: BP 142/68; PULSE 80; O2SAT 96; BMI 24.5
--- NOTE | 2023-08-15 09:55 | MHC.PC.OV ---
Vital Signs 08/15/23 09:55 Height 5 ft 8 in Weight 161 lb 6 oz BMI 24.5 BP 142/68 H Blood Pressure Location Rt brachial Position Sitting Pulse 80 Pulse Source Pulse Oximeter Pulse Oximetry (%) 96 Oxygen Delivery Method Room Air Intake Visit Reasons: 9 Month follow up Allergies Sulfa (Sulfonamide Antibiotics) [SULFA (SULFONAMIDE ANTIBIOTICS)] Allergy (Severe, Verified 08/15/23 09:59) RASH ALL OVER BODY,FACE, rash Penicillins Allergy (Mild, Verified 08/15/23 09:59) THROAT SWELLING lisinopril Allergy (Unknown, Verified 08/15/23 09:59) cough penicillin V Allergy (Unknown, Verified 08/15/23 09:59) tongue banana [BANANA] Adverse Reaction (Severe, Verified 08/15/23 09:59) STOMACH UPSET/PAIN hazelnut [HAZELNUT] Adverse Reaction (Intermediate, Verified 08/15/23 09:59) UPSET STOMACH Medication List - Last Reconciled 08/15/23 by Cole Mei MD amlodipine 10 mg PO DAILY 90 days atorvastatin 20 mg PO DAILY 90 days levothyroxine 100 mcg PO DAILY 90 days Tobacco use date assessed: 08/15/23 Fall risk assessment: No Falls in past year Last assessed Fall Risk: 08/15/23 Dental Screening Dental Screen Date: 05/16/23 Did you have a dental visit in the last 12 months?: No Did you have a dental problem in the last 6 months where you did not have access to dental care?: No Was dental information given to patient?: Patient has dentist HPI 9 Month follow up HPI Details Patient is 73-year-old female came in today for her regular follow-up Patient is doing well offer no new complaints today. She wants her ears irrigated which we did with good result Patient have impaired fasting sugar hemoglobin A1c is within normal range LFTs are elevated but stable we will continue to monitor Blood pressure is slightly elevated today, it was fine last time, we will continue to observe. patient is on amlodipine 10 mg She takes atorvastatin 20 mg daily for lipid control And levothyroxine 100 mcg for hypothyroidism.? Patient have a cardiac pacemaker in place, she continue to follow-up with the seal delivery vehicle team technician once a year Dual-chamber Medtronic pacemaker in place Psoriasis management through dermatology Osteopenia, I would recommend calcium rich foods and weight-bearing exercises Follow-up 3M labs are needed before next visit [facility] Medical History Cardiac pacemaker in situ SSS (sick sinus syndrome) Aortic stenosis Excessive cerumen in both ear canals Vitamin D deficiency Asthma, mild Osteopenia Impaired fasting blood sugar Psoriasis Hypothyroidism Lipid disorder Hypertension, essential Surgical History History of colonoscopy History of cystoscopy History of tooth extraction Family History Father History of CVA (cerebrovascular accident) HTN (hypertension) Depression Mother History of CVA (cerebrovascular accident) CAD (coronary artery disease) HTN (hypertension) Colitis Sister Myocardial infarction CAD (coronary artery disease) Colitis Brother Diabetes mellitus Maternal Aunt Breast cancer CAD (coronary artery disease) HTN (hypertension) Maternal Grandfather No problems noted. Maternal Grandmother No problems noted. Paternal Grandfather No problems noted. Paternal Grandmother No problems noted. Son No problems noted. Son No problems noted. Daughter No problems noted. Social History Housing: House Alcohol intake: current Alcohol intake frequency: a few times a week Patient Tobacco Use Status: Former Tobacco user Tobacco use type: Cigarette Cigarette Packs Per Day: 1 e-Cigarette/Vaping Use: Never Used service: No Current occupational status: retired Cognitive needs: No Hearing needs: No Vision needs: No Female Reproductive History Menstrual Age of Menarche: 13 Questionnaire PHQ-9 Over the last 2 weeks, how often have you been bothered by any of the following problems? 1. Little interest or pleasure in doing things: not at all 2. Feeling down, depressed, or hopeless: not at all 3. Trouble falling or staying asleep, or sleeping too much: several days 4. Feeling tired or having little energy: several days 5. Poor appetite or overeating: not at all 6. Feeling bad about yourself - or that you are a failure or have let yourself or your family down: not at all 7. Trouble concentrating on things, such as reading the newspaper or watching television: not at all 8. Moving or speaking so slowly that other people could have noticed. Or the opposite - being so fidgety or restless that you have been moving around a lot more than usual: not at all 9. Thoughts that you would be better off or of hurting yourself in some way: not at all Total score: 2 Depression Screening Interpretation: Negative Depression Screening Done: Yes 30547 - PHQ-9 Billing: Yes Source: Developed by Drs. Sylvester Morel, Quiana Trevizo, Asif Shaffer and colleagues, with an educational vanda from [employer]. Thrive Questionnaire Date Thrive assessed: 08/15/23 I am a: Patient What is your living situation today?: I have a steady place to live Within the past 12 months, did the food you bought not last and you didn't have the money to get more?: Never true Within the past 12 months, did you worry whether your food would run out before you got money to buy more?: Never true Do you have trouble paying for medicines?: No Do you have trouble getting transportation to medical appointments?: No Do you have trouble paying your heating and electricity bill?: No Do you have trouble taking care of your child, family member or friend?: No Do you have trouble with day-to-day activities such as bathing, preparing meals, shopping, managing finances, etc.?: No Are you currently unemployed and looking for a job?: No Are you interested in more education?: No Please select the resources that you would like help with: None Currently or been in a relationship where the following occur: no concerns reported THRIVE Score: 0 AUDIT C Alcohol Use Questionnaire (AUDIT-C) 1. How often do you have a drink containing alcohol?: 2-4 times a month 2. How many drinks containing alcohol do you have on a typical day when you are drinking?: 3 or 4 3. How often do you have six or more drinks on one occasion?: Never Total Score: 3 Score Reviewed/Action Taken: Yes KM-7 AMB Questionnaire KM-7 Date KM - 7 assessed: 08/15/23 Feeling nervous, anxious, or on edge: 0 = Not at all Not being able to stop or control worryin = Not at all Worrying too much about different things: 0 = Not at all Trouble relaxin = Not at all Being so restless that it is hard to sit still: 0 = Not at all Becoming easily annoyed or irritable: 0 = Not at all Feeling afraid as if something awful might happen: 0 = Not at all Total KM-7 score (0-4 normal; 5-9 mild; 10-14 moderate; 15-21 severe): 0 Source: Developed by Drs. Sylvester Morel, Quiana Trevizo, Asif Shaffer and colleagues, with an educational vanda from [employer]. KM-7 Assessment Billing KM-7 Assessment Tool: KM-7 Assessment 68462 Review of Systems Const Denies chills and Denies fever(s) ENT Denies epistaxis and Denies nasal discharge Card Denies chest pain Resp Denies chest congestion, Denies cough and Denies hemoptysis GI Denies diarrhea and Denies nausea Skin/Breast Denies rash Neuro Reports no additional complaints Psych Reports no additional complaints Endo Reports no additional complaints Physical exam (Primary Care) Vital Signs: Last Vital Signs Pulse 80 08/15/23 09:55 BP 142/68 H 08/15/23 09:55 Pulse Ox 96 08/15/23 09:55 Oxygen Delivery Method Room Air 08/15/23 09:55 BMI result Body Mass Index 24.5 Tobacco/Smoking Status: Tobacco use Status Tobacco use date assessed 08/15/23 08/15/23 09:59 Patient Tobacco Use Status Former Tobacco user 08/15/23 09:59 Tobacco use type Cigarette 08/15/23 09:59 e-Cigarette/Vaping Use Never Used 08/15/23 09:59 PHQ-9: PHQ-9 Score PHQ-9: Total score 2 08/15/23 11:02 Depression Screening Interpretation: Negative Thrive Assessment: Date of Thrive Assessment Date Thrive assessed 08/15/23 08/15/23 11:02 Currently or been in a relationship where the following occur: no concerns reported Const General: cooperative, comfortable and no acute distress Orientation/consciousness: patient oriented x3 HENMT Head: Yes normocephalic Eyes General: appearance normal, both eyes and all related structures Neck Neck: Yes supple Resp Effort & Inspection: normal respiratory effort, no cough and no stridor Cardio Rhythm: regular rhythm Heart sounds: S1 normal heart sound present and S2 normal heart sound present Skin General skin exam: turgor normal Neuro General: patient oriented x3, tone normal and moves all extremities Extrem Right lower extremity: no edema Left lower extremity: no edema Office Procedures Cerumen Removal From which ear canal was the cerumen removed: bilateral Removal: irrigation Notes: patient tolerated procedure well, no complications and ear canal clear [id number] Irrigation/Lavage Assessment and Plan Assessment & Plan (1) Hypertension, essential: Code(s): I10 - Essential (primary) hypertension (2) Lipid disorder: Code(s): E78.9 - Disorder of lipoprotein metabolism, unspecified (3) Hypothyroidism: Code(s): E03.9 - Hypothyroidism, unspecified Qualifiers: Hypothyroidism type: unspecified Qualified Code(s): E03.9 - Hypothyroidism, unspecified (4) Psoriasis: Code(s): L40.9 - Psoriasis, unspecified (5) Impaired fasting blood sugar: Code(s): R73.01 - Impaired fasting glucose (6) Osteopenia: Code(s): M85.80 - Other specified disorders of bone density and structure, unspecified site Qualifiers: Osteopenia location: lumbar spine Qualified Code(s): M85.88 - Other specified disorders of bone density and structure, other site (7) Asthma, mild: Code(s): J45.909 - Unspecified asthma, uncomplicated Qualifiers: Asthma complication type: uncomplicated Asthma persistence: intermittent Qualified Code(s): J45.20 - Mild intermittent asthma, uncomplicated (8) Vitamin D deficiency: Code(s): E55.9 - Vitamin D deficiency, unspecified (9) Excessive cerumen in both ear canals: Code(s): H61.23 - Impacted cerumen, bilateral (10) Cardiac pacemaker in situ: Comment: Dual-chamber Medtronic pacemaker for sick sinus syndrome Code(s): Z95.0 - Presence of cardiac pacemaker (11) LFT elevation: Code(s): R79.89 - Other specified abnormal findings of blood chemistry Plan Patient is 73-year-old female came in today for her regular follow-up Patient is doing well offer no new complaints today. She wants her ears irrigated which we did with good result Patient have impaired fasting sugar hemoglobin A1c is within normal range LFTs are elevated but stable we will continue to monitor Blood pressure is slightly elevated today, it was fine last time, we will continue to observe. patient is on amlodipine 10 mg She takes atorvastatin 20 mg daily for lipid control And levothyroxine 100 mcg for hypothyroidism.? Patient have a cardiac pacemaker in place, she continue to follow-up with the seal delivery vehicle team technician once a year Dual-chamber Medtronic pacemaker in place Psoriasis management through dermatology Osteopenia, I would recommend calcium rich foods and weight-bearing exercises Follow-up 3M labs are needed before next visit Orders: Orders Complete Blood Count Auto Diff Today E03.9 - Hypothyroidism, unspecified, E78.9 - Disorder of lipoprotein metabolism, unspecified, I10 - Essential (primary) hypertension, L40.9 - Psoriasis, unspecified, M85.88 - Other specified disorders of bone density and structure, other site, R73.01 - Impaired fasting glucose, R79.89 - Other specified abnormal findings of blood chemistry Lipid Panel Today E03.9 - Hypothyroidism, unspecified, E78.9 - Disorder of lipoprotein metabolism, unspecified, I10 - Essential (primary) hypertension, L40.9 - Psoriasis, unspecified, M85.88 - Other specified disorders of bone density and structure, other site, R73.01 - Impaired fasting glucose, R79.89 - Other specified abnormal findings of blood chemistry TSH reflex Free T4 Today E03.9 - Hypothyroidism, unspecified, E78.9 - Disorder of lipoprotein metabolism, unspecified, I10 - Essential (primary) hypertension, L40.9 - Psoriasis, unspecified, M85.88 - Other specified disorders of bone density and structure, other site, R73.01 - Impaired fasting glucose, R79.89 - Other specified abnormal findings of blood chemistry Comprehensive [place]. Panel Fast Today E03.9 - Hypothyroidism, unspecified, E78.9 - Disorder of lipoprotein metabolism, unspecified, I10 - Essential (primary) hypertension, L40.9 - Psoriasis, unspecified, M85.88 - Other specified disorders of bone density and structure, other site, R73.01 - Impaired fasting glucose, R79.89 - Other specified abnormal findings of blood chemistry Hemoglobin A1c Today E03.9 - Hypothyroidism, unspecified, E78.9 - Disorder of lipoprotein metabolism, unspecified, I10 - Essential (primary) hypertension, L40.9 - Psoriasis, unspecified, M85.88 - Other specified disorders of bone density and structure, other site, R73.01 - Impaired fasting glucose, R79.89 - Other specified abnormal findings of blood chemistry Coding Level of Care Code Est Pt Level 4 (88608) Complex EM visit Add On G2211 Diagnoses Hypertension, essential I10 Lipid disorder E78.9 Hypothyroidism, unspecified type E03.9 Hypothyroidism type: unspecified Psoriasis L40.9 Impaired fasting blood sugar R73.01 Osteopenia of lumbar spine M85.88 Osteopenia location: lumbar spine Mild intermittent asthma without complication J45.20 Asthma complication type: uncomplicated Asthma persistence: intermittent Vitamin D deficiency E55.9 Excessive cerumen in both ear canals H61.23 Cardiac pacemaker in situ Z95.0 LFT elevation R79.89 CPT Codes Office Procedure - CPT: 83817-Mkn Irrigation/Lavage ([id number]) Additional Codes KM-7 Assessment Billing - KM-7 Assessment Tool: KM-7 Assessment 26081 ([id number])
== END 2023-08-15 11:34 | disposition home or self-care (01) ==
PROVIDERS: PCP Internal Medicine; Visit Provider Internal Medicine
DX: I10 Essential (primary) hypertension (principal); E78.9 Disorder of lipoprotein metabolism, unspecified; E03.9 Hypothyroidism, unspecified; H61.23 Impacted cerumen, bilateral; L40.9 Psoriasis, unspecified; R73.01 Impaired fasting glucose; M85.88 Other specified disorders of bone density and structure, other site; J45.20 Mild intermittent asthma, uncomplicated; E55.9 Vitamin D deficiency, unspecified; Z95.0 Presence of cardiac pacemaker; R79.89 Other specified abnormal findings of blood chemistry
CPT/HCPCS: 69209; 99214; G2211

== ENCOUNTER → 2023-09-17 23:59 | Outpatient (BNV) | payer MEDICARE, SELFPAY ==
--- NOTE | 2023-09-24 14:59 | MHC.OFFVIS ---
Intake Visit Reasons: Remote Device Check- Medtronic Allergies Sulfa (Sulfonamide Antibiotics) [SULFA (SULFONAMIDE ANTIBIOTICS)] Allergy (Severe, Verified 08/15/23 09:59) RASH ALL OVER BODY,FACE, rash Penicillins Allergy (Mild, Verified 08/15/23 09:59) THROAT SWELLING lisinopril Allergy (Unknown, Verified 08/15/23 09:59) cough penicillin V Allergy (Unknown, Verified 08/15/23 09:59) tongue banana [BANANA] Adverse Reaction (Severe, Verified 08/15/23 09:59) STOMACH UPSET/PAIN hazelnut [HAZELNUT] Adverse Reaction (Intermediate, Verified 08/15/23 09:59) UPSET STOMACH PFSH Medical History Cardiac pacemaker in situ SSS (sick sinus syndrome) Aortic stenosis Excessive cerumen in both ear canals Vitamin D deficiency Asthma, mild Osteopenia Impaired fasting blood sugar Psoriasis Hypothyroidism Lipid disorder Hypertension, essential Surgical History History of colonoscopy History of cystoscopy History of tooth extraction Family History Father History of CVA (cerebrovascular accident) HTN (hypertension) Depression Mother History of CVA (cerebrovascular accident) CAD (coronary artery disease) HTN (hypertension) Colitis Sister Myocardial infarction CAD (coronary artery disease) Colitis Brother Diabetes mellitus Maternal Aunt Breast cancer CAD (coronary artery disease) HTN (hypertension) Maternal Grandfather No problems noted. Maternal Grandmother No problems noted. Paternal Grandfather No problems noted. Paternal Grandmother No problems noted. Son No problems noted. Son No problems noted. Daughter No problems noted. Social History Housing: House Alcohol intake: current Alcohol intake frequency: a few times a week Patient Tobacco Use Status: Former Tobacco user Tobacco use type: Cigarette Cigarette Packs Per Day: 1 e-Cigarette/Vaping Use: Never Used service: No Current occupational status: retired Cognitive needs: No Hearing needs: No Vision needs: No Female Reproductive History Menstrual Age of Menarche: 13 Office Procedures Cardiac Device Check Cardiac Device Check Details: Remote pacemaker report generated 09/17/2023. Pacemaker function is adequate [id number] Cardiac Device Interrogation, pacemaker Procedure code (CPT) selection complete Assessment & Plan Assessment & Plan (1) Cardiac pacemaker in situ: Comment: Dual-chamber Medtronic pacemaker for sick sinus syndrome Code(s): Z95.0 - Presence of cardiac pacemaker Category: Medical Plan: See above Coding Level of Care Code Procedure Only Diagnoses Cardiac pacemaker in situ Z95.0 CPT Codes Cardiac Device Check - Cardiac Device 12: [id number] Cardiac Device Interrogation, pacemaker ([id number])
== END ==
PROVIDERS: PCP Internal Medicine; Visit Provider Internal Medicine Cardiovascular Disease
DX: I49.5 Sick sinus syndrome (principal); Z95.0 Presence of cardiac pacemaker
CPT/HCPCS: 93294

== ENCOUNTER 2023-11-21 09:42 | Outpatient (REF) | payer MEDICARE, SELFPAY ==
[2023-11-21 13:21] LABS: MANUAL DIFF FLAG NO
[2023-11-21 13:32] LABS: Basophils Absolute Auto 0.1 X10*3/uL (0.0-0.2); Basophils Percent Auto 1.2 % (0-2); Eosinophils Absolute Auto 0.6 X10*3/uL (0.0-0.4); Eosinophils Percent Auto 7.3 % (0-4); Hematocrit 43.8 % (37.0-47.0); Hemoglobin 15.1 g/dl (12.0-16.0); Imm Gran Abs Auto 0.01 X10*3/uL (0.00-0.03); Imm Gran Pct Auto 0.1 % (0.0-0.4); Lymphocytes Absolute Auto 2.2 X10*3/uL (1.2-4.9); Lymphocytes Percent Auto 28.8 % (20-40); Mean Corpuscular HGB Conc 34.5 g/dl (31.0-35.0); Mean Corpuscular Hemoglobin 32.5 pg (27.0-33.0); Mean Corpuscular Volume 94.2 fL (80.0-98.0); Mean Platelet Volume 10.3 fL (9.4-12.3); Monocytes Absolute Auto 0.6 X10*3/uL (0.1-1.2); Monocytes Percent Auto 7.9 % (2-11); Neutrophils Absolute Auto 4.1 x10*3/uL (2.0-8.3); Neutrophils Percent Auto 54.7 % (45-73); Platelet Count 271 X10*3/uL (160-400); Red Blood Count 4.65 X10*6/uL (4.20-5.50); Red Cell Distribution Width 14.4 % (11.0-16.0); White Blood Count 7.5 X10*3/uL (4.8-10.8)
[2023-11-21 13:41] LABS: Estimated Average Glucose 111 mg/dL; Hemoglobin A1c % 5.5 % (<6.0)
[2023-11-21 14:03] LABS: Alanine Aminotransferase 31 U/L (0-31); Albumin Level 4.2 g/dL (3.5-5.0); Alkaline Phosphatase 126 U/L (39-117); Anion Gap 12 (12-20); Aspartate Amino Transferase 22 U/L (5-31); Bilirubin Total 0.6 mg/dL (0.0-1.0); Blood Urea Nitrogen 14 mg/dL (9-16); Calcium 9.7 mg/dL (8.4-10.2); Carbon Dioxide 29 mmol/L (22-29); Chloride 105 mmol/L (96-108); Cholesterol 133 mg/dL (<200); Estimated Glomerular Filt Rate > 60; Glucose Fasting 116 mg/dL (60-99); HDL Cholesterol 45 mg/dL (>40); LDL Cholesterol Calculated 68 mg/dL (<100); Potassium 3.8 mmol/L (3.3-5.1); Sodium 142 mmol/L (135-145); Total Protein 7.8 g/dL (6.5-8.0); Triglycerides 104 mg/dL (<150)
== END 2023-11-21 09:43 | disposition home or self-care (01) ==
LOC: HO.HMGCLDS 09:42
PROVIDERS: PCP Internal Medicine; Visit Provider Internal Medicine
DX: R79.89 Other specified abnormal findings of blood chemistry (principal); I10 Essential (primary) hypertension; E78.9 Disorder of lipoprotein metabolism, unspecified; E03.9 Hypothyroidism, unspecified; L40.9 Psoriasis, unspecified; R73.01 Impaired fasting glucose; M85.88 Other specified disorders of bone density and structure, other site
CPT/HCPCS: 36415; 80053; 80061; 83036; 84443; 85025

== ENCOUNTER 2023-11-27 11:23 | Outpatient (AMB) | payer MEDICARE, SELFPAY ==
[2023-11-27 11:25] VITALS: BP 124/70; PULSE 82; O2SAT 96; BMI 23.4
--- NOTE | 2023-11-27 11:25 | MHC.PC.OV ---
Vital Signs 11/27/23 11:25 Height 5 ft 8 in Weight 154 lb BMI 23.4 BP 124/70 Blood Pressure Location Lt brachial Position Sitting Pulse 82 Pulse Source Pulse Oximeter Pulse Oximetry (%) 96 Oxygen Delivery Method Room Air Intake Visit Reasons: Annual PE Allergies Sulfa (Sulfonamide Antibiotics) [SULFA (SULFONAMIDE ANTIBIOTICS)] Allergy (Severe, Verified 11/27/23 11:26) RASH ALL OVER BODY,FACE, rash Penicillins Allergy (Mild, Verified 11/27/23 11:26) THROAT SWELLING lisinopril Allergy (Unknown, Verified 11/27/23 11:26) cough penicillin V Allergy (Unknown, Verified 11/27/23 11:26) tongue banana [BANANA] Adverse Reaction (Severe, Verified 11/27/23 11:26) STOMACH UPSET/PAIN hazelnut [HAZELNUT] Adverse Reaction (Intermediate, Verified 11/27/23 11:26) UPSET STOMACH Medication List - Last Reconciled 11/27/23 by Cole Mei MD amlodipine 10 mg PO DAILY 90 days atorvastatin 20 mg PO DAILY 90 days levothyroxine 100 mcg PO DAILY 90 days Tobacco use date assessed: 11/27/23 Fall risk assessment: No Falls in past year Last assessed Fall Risk: 11/27/23 Dental Screening Dental Screen Date: 11/27/23 Did you have a dental visit in the last 12 months?: Yes Did you have a dental problem in the last 6 months where you did not have access to dental care?: No Was dental information given to patient?: Patient has dentist HPI Annual PE HPI Details Patient is 73-year-old female came in today for her physical exam appointment Colonoscopy was in 2020 Pap smear was 2020 patient says that she was told she does not needed anymore Mammogram up-to-date Labs done recently reviewed Fasting sugar is 116 but hemoglobin A1c is stable Blood pressure is stable patient is on amlodipine 10 mg She takes atorvastatin 20 mg daily for lipid control And levothyroxine 100 mcg for hypothyroidism.? 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 Patient has very dry skin on heels and in winter this split open She was getting a cream compound from [facility] but her insurance does not cover these visits anymore I have told her to bring the compound next time , I might be able to help her Psoriasis management through dermatology Follow-up 3M PFSH Medical History Cardiac pacemaker in situ SSS (sick sinus syndrome) Aortic stenosis Excessive cerumen in both ear canals Vitamin D deficiency Asthma, mild Osteopenia Impaired fasting blood sugar Psoriasis Hypothyroidism Lipid disorder Hypertension, essential Surgical History History of colonoscopy History of cystoscopy History of tooth extraction Family History Father History of CVA (cerebrovascular accident) HTN (hypertension) Depression Mother History of CVA (cerebrovascular accident) CAD (coronary artery disease) HTN (hypertension) Colitis Sister Myocardial infarction CAD (coronary artery disease) Colitis Brother Diabetes mellitus Maternal Aunt Breast cancer CAD (coronary artery disease) HTN (hypertension) Maternal Grandfather No problems noted. Maternal Grandmother No problems noted. Paternal Grandfather No problems noted. Paternal Grandmother No problems noted. Son No problems noted. Son No problems noted. Daughter No problems noted. Social History Housing: House Alcohol intake: current Alcohol intake frequency: a few times a week Patient Tobacco Use Status: Former Tobacco user Tobacco use type: Cigarette Cigarette Packs Per Day: 1 e-Cigarette/Vaping Use: Never Used service: No Current occupational status: retired Cognitive needs: No Hearing needs: No Vision needs: No Female Reproductive History Menstrual Age of Menarche: 13 Questionnaire PHQ-9 Over the last 2 weeks, how often have you been bothered by any of the following problems? 1. Little interest or pleasure in doing things: not at all 2. Feeling down, depressed, or hopeless: not at all 3. Trouble falling or staying asleep, or sleeping too much: not at all 4. Feeling tired or having little energy: not at all 5. Poor appetite or overeating: not at all 6. Feeling bad about yourself - or that you are a failure or have let yourself or your family down: not at all 7. Trouble concentrating on things, such as reading the newspaper or watching television: not at all 8. Moving or speaking so slowly that other people could have noticed. Or the opposite - being so fidgety or restless that you have been moving around a lot more than usual: not at all 9. Thoughts that you would be better off or of hurting yourself in some way: not at all Total score: 0 Depression Screening Interpretation: Negative Depression Screening Done: Yes 99409 - PHQ-9 Billing: Yes Source: Developed by Drs. Sylvester Morel, Quiana Trevizo, Asif Shaffer and colleagues, with an educational vanda from [email or web address]. Thrive Questionnaire Date Thrive assessed: 11/27/23 I am a: Patient What is your living situation today?: I have a steady place to live Within the past 12 months, did the food you bought not last and you didn't have the money to get more?: Never true Within the past 12 months, did you worry whether your food would run out before you got money to buy more?: Never true Do you have trouble paying for medicines?: No Do you have trouble getting transportation to medical appointments?: No Do you have trouble paying your heating and electricity bill?: No Do you have trouble taking care of your child, family member or friend?: No Do you have trouble with day-to-day activities such as bathing, preparing meals, shopping, managing finances, etc.?: No Are you currently unemployed and looking for a job?: No Are you interested in more education?: No Please select the resources that you would like help with: None Currently or been in a relationship where the following occur: No concerns reported THRIVE Score: 0 AUDIT C Alcohol Use Questionnaire (AUDIT-C) 1. How often do you have a drink containing alcohol?: 2-4 times a month 2. How many drinks containing alcohol do you have on a typical day when you are drinking?: 5 or 6 3. How often do you have six or more drinks on one occasion?: Weekly Total Score: 7 Score Reviewed/Action Taken: Yes KM-7 AMB Questionnaire KM-7 Date KM - 7 assessed: 11/27/23 Feeling nervous, anxious, or on edge: 0 = Not at all Not being able to stop or control worryin = Not at all Worrying too much about different things: 0 = Not at all Trouble relaxin = Not at all Being so restless that it is hard to sit still: 0 = Not at all Becoming easily annoyed or irritable: 0 = Not at all Feeling afraid as if something awful might happen: 0 = Not at all Total KM-7 score (0-4 normal; 5-9 mild; 10-14 moderate; 15-21 severe): 0 Source: Developed by Drs. Sylvester Morel, Quiana Trevizo, Asif Shaffer and colleagues, with an educational vanda from [email or web address]. KM-7 Assessment Billing KM-7 Assessment Tool: KM-7 Assessment 35955 Review of Systems Const Denies chills, Denies fever(s) and Denies headache(s) Eyes Denies blurry vision ENT Denies headache(s), Denies nasal discharge, Denies nasal obstruction, Denies odynophagia and Denies sinus pain Card Denies chest pain at rest and Denies chest pain with activity Resp Denies cough and Denies hemoptysis GI Denies diarrhea, Denies odynophagia, Denies vomiting and Denies hematemesis Reports as per HPI Musc Denies abnormal gait Skin/Breast Reports as per HPI Neuro Denies Neuro-related abnormal movements, Denies Abnormal speech present, Denies abnormal gait, Denies headache(s) and Denies Sensory deficit (Neuro) Psych Denies mood swings and Denies paranoia Endo Reports as per HPI Ari/Lymph Reports as per HPI Aller/Immun Reports as per HPI Physical exam (Primary Care) Vital Signs: Last Vital Signs Pulse 82 11/27/23 11:25 BP 124/70 11/27/23 11:25 Pulse Ox 96 11/27/23 11:25 Oxygen Delivery Method Room Air 11/27/23 11:25 BMI result Body Mass Index 23.4 Tobacco/Smoking Status: Tobacco use Status Tobacco use date assessed 11/27/23 11/27/23 11:27 Patient Tobacco Use Status Former Tobacco user 11/27/23 11:27 Tobacco use type Cigarette 11/27/23 11:27 e-Cigarette/Vaping Use Never Used 11/27/23 11:27 PHQ-9: PHQ-9 Score PHQ-9: Total score 0 11/27/23 11:27 Depression Screening Interpretation: Negative Thrive Assessment: Date of Thrive Assessment Date Thrive assessed 11/27/23 11/27/23 11:27 Currently or been in a relationship where the following occur: No concerns reported Const General: cooperative, comfortable and no acute distress Orientation/consciousness: patient oriented x3 HENMT Head: Yes normocephalic and Yes atraumatic Eyes General: appearance normal, both eyes and all related structures Pupils: Equal, round and reactive pupils present EOM: EOMs intact bilaterally Neck Neck: Yes supple and No lymphadenopathy Thyroid: Thyroid normal Lymphatic: no lymphadenopathy noted Chest Breast/axilla palpation: normal palpation of the breasts Resp Effort & Inspection: normal respiratory effort and able to speak in complete sentences Auscultation: clear to auscultation bilaterally Cardio Heart sounds: S1 normal heart sound present and S2 normal heart sound present GI Palpation (GI): Soft to palpation and nontender Auscultation: normal bowel sounds General: Yes no CVA tenderness Back/Spine/Pelvis Back: no CVA tenderness Skin General skin exam: elasticity normal and turgor normal Neuro General: patient oriented x3 and gait normal Cranial nerves: Yes Equal, round and reactive pupils present Speech: No Abnormal speech present Sensory Exam: No Sensory deficit (Neuro) Coordination: tandem gait normal and Romberg test negative Extrem General: Yes normal exam except as noted and No edema Office Procedures Cerumen Removal From which ear canal was the cerumen removed: bilateral Removal: irrigation Notes: patient tolerated procedure well and ear canal clear [id number] Irrigation/Lavage Assessment and Plan Assessment & Plan (1) Encounter for general adult medical examination with abnormal findings: Code(s): Z00.01 - Encounter for general adult medical examination with abnormal findings (2) Hypertension, essential: Code(s): I10 - Essential (primary) hypertension (3) Lipid disorder: Code(s): E78.9 - Disorder of lipoprotein metabolism, unspecified (4) Hypothyroidism: Code(s): E03.9 - Hypothyroidism, unspecified Qualifiers: Hypothyroidism type: unspecified Qualified Code(s): E03.9 - Hypothyroidism, unspecified (5) Psoriasis: Code(s): L40.9 - Psoriasis, unspecified (6) Impaired fasting blood sugar: Code(s): R73.01 - Impaired fasting glucose (7) Osteopenia: Code(s): M85.80 - Other specified disorders of bone density and structure, unspecified site Qualifiers: Osteopenia location: lumbar spine Qualified Code(s): M85.88 - Other specified disorders of bone density and structure, other site (8) Asthma, mild: Code(s): J45.909 - Unspecified asthma, uncomplicated Qualifiers: Asthma complication type: uncomplicated Asthma persistence: intermittent Qualified Code(s): J45.20 - Mild intermittent asthma, uncomplicated (9) Vitamin D deficiency: Code(s): E55.9 - Vitamin D deficiency, unspecified (10) Excessive cerumen in both ear canals: Code(s): H61.23 - Impacted cerumen, bilateral (11) Cardiac pacemaker in situ: Comment: Dual-chamber Medtronic pacemaker for sick sinus syndrome Code(s): Z95.0 - Presence of cardiac pacemaker (12) Screening for alcohol problem: Comment: CONSEQUENCES OF DRINKING PROBLEMS There are a number of serious consequences of drinking alcohol excessively -------Excessive alcohol consumption is a leading preventable cause of in the [place]. --------Drinking alcohol increases the risk of traffic accidents, suicide, drowning, and other serious injuries. -------Alcohol use continues to be the leading cause of injuries treated in trauma centers and emergency departments . --------Alcohol-related liver disease may lead to end-stage liver disease (cirrhosis) and . --------Alcohol increases the risk of certain cancers of the mouth, esophagus, throat, liver, and breast. Code(s): Z13.39 - Encounter for screening examination for other mental health and behavioral disorders (13) LFT elevation: Code(s): R79.89 - Other specified abnormal findings of blood chemistry Plan Patient is 73-year-old female came in today for her physical exam appointment Colonoscopy was in 2020 Pap smear was 2020 patient says that she was told she does not needed anymore Mammogram up-to-date Labs done recently reviewed Fasting sugar is 116 but hemoglobin A1c is stable Blood pressure is stable patient is on amlodipine 10 mg She takes atorvastatin 20 mg daily for lipid control And levothyroxine 100 mcg for hypothyroidism.? 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 Patient has very dry skin on heels and in winter this split open She was getting a cream compound from [facility] but her insurance does not cover these visits anymore I have told her to bring the compound next time , I might be able to help her Psoriasis management through dermatology Follow-up 3M Medications: Refilled atorvastatin 20 mg PO DAILY 90 tabs 1RF 90 days amlodipine 10 mg PO DAILY 90 tabs 1RF 90 days levothyroxine 100 mcg PO DAILY 90 tabs 1RF 90 days Coding Level of Care Code Est Pt Level 3 (50821) Est Pt Prev Care >65y(41448) Diagnoses Encounter for general adult medical examination with abnormal findings Z00.01 Hypertension, essential I10 Lipid disorder E78.9 Hypothyroidism, unspecified type E03.9 Hypothyroidism type: unspecified Psoriasis L40.9 Impaired fasting blood sugar R73.01 Osteopenia of lumbar spine M85.88 Osteopenia location: lumbar spine Mild intermittent asthma without complication J45.20 Asthma complication type: uncomplicated Asthma persistence: intermittent Vitamin D deficiency E55.9 Excessive cerumen in both ear canals H61.23 Cardiac pacemaker in situ Z95.0 Screening for alcohol problem Z13.39 LFT elevation R79.89 CPT Codes Office Procedure - CPT: 81026-Ncs Irrigation/Lavage ([id number]) Additional Codes KM-7 Assessment Billing - KM-7 Assessment Tool: KM-7 Assessment 11027 ([id number])
== END 2023-11-27 11:49 | disposition home or self-care (01) ==
PROVIDERS: PCP Internal Medicine; Visit Provider Internal Medicine
DX: Z00.00 Encounter for general adult medical examination without abnormal findings (principal); I10 Essential (primary) hypertension; E78.9 Disorder of lipoprotein metabolism, unspecified; H61.23 Impacted cerumen, bilateral; E03.9 Hypothyroidism, unspecified; L40.9 Psoriasis, unspecified; R73.01 Impaired fasting glucose; M85.88 Other specified disorders of bone density and structure, other site; J45.20 Mild intermittent asthma, uncomplicated; E55.9 Vitamin D deficiency, unspecified; Z95.0 Presence of cardiac pacemaker; Z13.39 Encounter for screening examination for other mental health and behavioral disorders
CPT/HCPCS: 69209; 99397

== ENCOUNTER → 2024-01-09 23:59 | Outpatient (BNV) | payer MEDICARE, SELFPAY ==
--- NOTE | 2024-01-21 17:18 | MHC.OFFVIS ---
Intake Visit Reasons: Remote Device Check- Medtronic Allergies Sulfa (Sulfonamide Antibiotics) [SULFA (SULFONAMIDE ANTIBIOTICS)] Allergy (Severe, Verified 11/27/23 11:26) RASH ALL OVER BODY,FACE, rash Penicillins Allergy (Mild, Verified 11/27/23 11:26) THROAT SWELLING lisinopril Allergy (Unknown, Verified 11/27/23 11:) cough penicillin V Allergy (Unknown, Verified 11/27/23 11:) tongue banana [BANANA] Adverse Reaction (Severe, Verified 11/27/23 11:) STOMACH UPSET/PAIN hazelnut [HAZELNUT] Adverse Reaction (Intermediate, Verified 11/27/23 11:) UPSET STOMACH PFSH Medical History Cardiac pacemaker in situ SSS (sick sinus syndrome) Aortic stenosis Excessive cerumen in both ear canals Vitamin D deficiency Asthma, mild Osteopenia Impaired fasting blood sugar Psoriasis Hypothyroidism Lipid disorder Hypertension, essential Surgical History History of colonoscopy History of cystoscopy History of tooth extraction Family History Father History of CVA (cerebrovascular accident) HTN (hypertension) Depression Mother History of CVA (cerebrovascular accident) CAD (coronary artery disease) HTN (hypertension) Colitis Sister Myocardial infarction CAD (coronary artery disease) Colitis Brother Diabetes mellitus Maternal Aunt Breast cancer CAD (coronary artery disease) HTN (hypertension) Maternal Grandfather No problems noted. Maternal Grandmother No problems noted. Paternal Grandfather No problems noted. Paternal Grandmother No problems noted. Son No problems noted. Son No problems noted. Daughter No problems noted. Social History Housing: House Alcohol intake: current Alcohol intake frequency: a few times a week Patient Tobacco Use Status: Former Tobacco user Tobacco use type: Cigarette Cigarette Packs Per Day: 1 e-Cigarette/Vaping Use: Never Used service: No Current occupational status: retired Cognitive needs: No Hearing needs: No Vision needs: No Female Reproductive History Menstrual Age of Menarche: 13 Office Procedures Cardiac Device Check Cardiac Device Check Details: Remote pacemaker report generated 01/09/2024. Pacemaker function is adequate [id number] Cardiac Device Interrogation, pacemaker Procedure code (CPT) selection complete Assessment & Plan Assessment & Plan (1) Cardiac pacemaker in situ: Comment: Dual-chamber Medtronic pacemaker for sick sinus syndrome Code(s): Z95.0 - Presence of cardiac pacemaker Category: Medical Plan: See above Coding Level of Care Code Procedure Only Diagnoses Cardiac pacemaker in situ Z95.0 CPT Codes Cardiac Device Check - Cardiac Device 12: [id number] Cardiac Device Interrogation, pacemaker ([id number])
== END ==
PROVIDERS: PCP Internal Medicine; Visit Provider Internal Medicine Cardiovascular Disease
DX: I49.5 Sick sinus syndrome (principal); Z95.0 Presence of cardiac pacemaker
CPT/HCPCS: 93294

== ENCOUNTER 2024-03-26 09:30 | Outpatient (AMB) | payer MEDICARE, SELFPAY ==
[2024-03-26 09:31] VITALS: BP 120/72; PULSE 70; O2SAT 96; BMI 23.9
--- NOTE | 2024-03-26 09:31 | A.OFFPC_ITS ---
Vital Signs 03/26/24 09:31 Height 5 ft 8 in Weight 157 lb BMI 23.9 BP 120/72 Blood Pressure Location Lt brachial Position Sitting Pulse 70 Pulse Source Pulse Oximeter Pulse Oximetry (%) 96 Oxygen Delivery Method Room Air Intake Visit Reasons: 3 month follow up Allergies Sulfa (Sulfonamide Antibiotics) [SULFA (SULFONAMIDE ANTIBIOTICS)] Allergy (Severe, Verified 03/26/24 09:32) RASH ALL OVER BODY,FACE, rash Penicillins Allergy (Mild, Verified 03/26/24 09:32) THROAT SWELLING lisinopril Allergy (Unknown, Verified 03/26/24 09:32) cough penicillin V Allergy (Unknown, Verified 03/26/24 09:32) tongue banana [BANANA] Adverse Reaction (Severe, Verified 03/26/24 09:32) STOMACH UPSET/PAIN hazelnut [HAZELNUT] Adverse Reaction (Intermediate, Verified 03/26/24 09:32) UPSET STOMACH tuna Allergy (Mild, Uncoded 03/26/24 09:38) Facial Swelling Medication List - Last Reconciled 03/26/24 by Cole Mei MD amlodipine 10 mg PO DAILY 90 days atorvastatin 20 mg PO DAILY 90 days levothyroxine 100 mcg PO DAILY 90 days Tobacco use date assessed: 03/26/24 Fall risk assessment: No Falls in past year Last assessed Fall Risk: 03/26/24 Dental Screening Dental Screen Date: 03/26/24 Did you have a dental visit in the last 12 months?: Yes Did you have a dental problem in the last 6 months where you did not have access to dental care?: No Was dental information given to patient?: Patient has dentist HPI 3 month follow up HPI Details History of Present Illness The patient is a 73-year-old female presenting with a regular follow-up visit. - Reports a new onset allergic reaction to tuna fish, resulting in lip edema, with symptoms appearing after home-prepared tuna consumption. - Increased symptoms of osteoarthritis, particularly affecting the right shoulder and thumb, worsening with cold weather. - Recently documented laboratory tests s how elevated fasting glucose levels but controlled hemoglobin A1c, stable elevated alkaline phosphatase, and normal thyroid function. Review of Systems - Dermatological: Reports development of lip edema after consuming tuna. - Musculoskeletal: Reports increased dago n in the right shoulder and thumb, aggravated by cold weather. - General: No fever no chills - Neurological: No headaches no dizziness - Ear nose throat: No sore throat no hearing difficulty no ear pain - Cardiovascular: No syncope, no chest pain, no palpitations - Gastrointestinal: No nausea vomiting or diarrhea - Endocrine: No polyuria polydipsia no heat intolerance - Genitourinary: No dysuria , no blood in urine Physical Exam General: No acute distress HEENT: Ear wax present, but not severe Neck: Supple Respiratory system: Able to talk in full sentences, no audible wheeze cardiovascular: S1-S2 regular in rate and rhythm Gastrointestinal: No pain Extremities: Arthritis in right shoulder and thumb 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 - Monitor symptoms of osteoarthritis and manage pain as discussed. - Follow up with a set of laboratory linsey ts before the next visit in three months. - both ears were irrigated today with go od result - continue amlodipine for blood pressure control - atorvastatin 20 mg for lipid control - and levothyroxine 100 mcg for hypothyr oidism, TSH within normal limit Follow-up 3 months [facility] Medical History Cardiac pacemaker in situ SSS (sick sinus syndrome) Aortic stenosis Excessive cerumen in both ear canals Vitamin D deficiency Asthma, mild Osteopenia Impaired fasting blood sugar Psoriasis Hypothyroidism Lipid disorder Hypertension, essential Surgical History History of colonoscopy History of cystoscopy History of tooth extraction Family History Father History of CVA (cerebrovascular accident) HTN (hypertension) Depression Mother History of CVA (cerebrovascular accident) CAD (coronary artery disease) HTN (hypertension) Colitis Sister Myocardial infarction CAD (coronary artery disease) Colitis Brother Diabetes mellitus Maternal Aunt Breast cancer CAD (coronary artery disease) HTN (hypertension) Maternal Grandfather No problems noted. Maternal Grandmother No problems noted. Paternal Grandfather No problems noted. Paternal Grandmother No problems noted. Son No problems noted. Son No problems noted. Daughter No problems noted. Social History Housing: House Alcohol intake: current Alcohol intake frequency: a few times a week Patient Tobacco Use Status: Former Tobacco user Tobacco use type: Cigarette Cigarette Packs Per Day: 1 e-Cigarette/Vaping Use: Never Used service: No Current occupational status: retired Cognitive needs: No Hearing needs: No Vision needs: No Female Reproductive History Menstrual Age of Menarche: 13 Questionnaire PHQ-9 Over the last 2 weeks, how often have you been bothered by any of the following problems? 1. Little interest or pleasure in doing things: not at all 2. Feeling down, depressed, or hopeless: not at all 3. Trouble falling or staying asleep, or sleeping too much: not at all 4. Feeling tired or having little energy: not at all 5. Poor appetite or overeating: not at all 6. Feeling bad about yourself - or that you are a failure or have let yourself or your family down: not at all 7. Trouble concentrating on things, such as reading the newspaper or watching television: not at all 8. Moving or speaking so slowly that other people could have noticed. Or the opposite - being so fidgety or restless that you have been moving around a lot more than usual: not at all 9. Thoughts that you would be better off or of hurting yourself in some way: not at all Total score: 0 Depression Screening Interpretation: Negative Depression Screening Done: Yes 90229 - PHQ-9 Billing: Yes Source: Developed by Drs. Sylvester Morel, Quiana Trevizo, Asif Shaffer and colleagues, with an educational vanda from [employer]. Thrive Questionnaire Date Thrive assessed: 03/26/24 I am a: Patient What is your living situation today?: I have a steady place to live Within the past 12 months, did the food you bought not last and you didn't have the money to get more?: Never true Within the past 12 months, did you worry whether your food would run out before you got money to buy more?: Never true Do you have trouble paying for medicines?: No Do you have trouble getting transportation to medical appointments?: No Do you have trouble paying your heating and electricity bill?: No Do you have trouble taking care of your child, family member or friend?: No Do you have trouble with day-to-day activities such as bathing, preparing meals, shopping, managing finances, etc.?: No Are you currently unemployed and looking for a job?: No Are you interested in more education?: No Please select the resources that you would like help with: None Currently or been in a relationship where the following occur: No concerns reported THRIVE Score: 0 AUDIT C Alcohol Use Questionnaire (AUDIT-C) 1. How often do you have a drink containing alcohol?: 2-4 times a month 2. How many drinks containing alcohol do you have on a typical day when you are drinking?: 3 or 4 3. How often do you have six or more drinks on one occasion?: Weekly Total Score: 6 Score Reviewed/Action Taken: Yes KM-7 AMB Questionnaire KM-7 Date KM - 7 assessed: 03/26/24 Feeling nervous, anxious, or on edge: 0 = Not at all Not being able to stop or control worryin = Not at all Worrying too much about different things: 0 = Not at all Trouble relaxin = Not at all Being so restless that it is hard to sit still: 0 = Not at all Becoming easily annoyed or irritable: 0 = Not at all Feeling afraid as if something awful might happen: 0 = Not at all Total KM-7 score (0-4 normal; 5-9 mild; 10-14 moderate; 15-21 severe): 0 Source: Developed by Drs. Sylvester Morel, Quiana Trevizo, Asif Shaffer and colleagues, with an educational vanda from [employer]. KM-7 Assessment Billing KM-7 Assessment Tool: KM-7 Assessment 24470 Physical exam (Primary Care) Vital Signs: Last Vital Signs Pulse 70 03/26/24 09:31 BP 120/72 03/26/24 09:31 Pulse Ox 96 03/26/24 09:31 Oxygen Delivery Method Room Air 03/26/24 09:31 BMI result Body Mass Index 23.9 Tobacco/Smoking Status: Tobacco use Status Tobacco use date assessed 03/26/24 03/26/24 09:33 Patient Tobacco Use Status Former Tobacco user 03/26/24 09:33 Tobacco use type Cigarette 03/26/24 09:33 e-Cigarette/Vaping Use Never Used 03/26/24 09:33 PHQ-9: PHQ-9 Score PHQ-9: Total score 0 03/26/24 09:53 Depression Screening Interpretation: Negative Thrive Assessment: Date of Thrive Assessment Date Thrive assessed 03/26/24 03/26/24 09:33 Currently or been in a relationship where the following occur: No concerns reported Office Procedures Cerumen Removal From which ear canal was the cerumen removed: bilateral Removal: irrigation Notes: patient tolerated procedure well, no complications and ear canal clear [id number] Irrigation/Lavage Coding Level of Care Code Est Pt Level 4 (60791) Complex EM visit Add On G2211 Diagnoses Hypertension, essential I10 Lipid disorder E78.9 Hypothyroidism, unspecified type E03.9 Hypothyroidism type: unspecified Impaired fasting blood sugar R73.01 Vitamin D deficiency E55.9 Osteopenia of lumbar spine M85.88 Osteopenia location: lumbar spine Excessive cerumen in both ear canals H61.23 CPT Codes Office Procedure - CPT: 95007-Puw Irrigation/Lavage ([id number]) Additional Codes KM-7 Assessment Billing - KM-7 Assessment Tool: KM-7 Assessment 79461 ([id number]) PHQ-9 - 48273 - PHQ-9 Billing: Yes ([id number]) Assessment & Plan Assessment & Plan (1) Hypertension, essential: Code(s): I10 - Essential (primary) hypertension Category: Medical (2) Lipid disorder: Code(s): E78.9 - Disorder of lipoprotein metabolism, unspecified Category: Medical (3) Hypothyroidism: Code(s): E03.9 - Hypothyroidism, unspecified Category: Medical Qualifiers: Hypothyroidism type: unspecified Qualified Code(s): E03.9 - Hypothyroidism, unspecified (4) Impaired fasting blood sugar: Code(s): R73.01 - Impaired fasting glucose Category: Medical (5) Vitamin D deficiency: Code(s): E55.9 - Vitamin D deficiency, unspecified Category: Medical (6) Osteopenia: Code(s): M85.80 - Other specified disorders of bone density and structure, unspecified site Category: Medical Qualifiers: Osteopenia location: lumbar spine Qualified Code(s): M85.88 - Other specified disorders of bone density and structure, other site (7) Excessive cerumen in both ear canals: Code(s): H61.23 - Impacted cerumen, bilateral Category: Medical Plan History of Present Illness The patient is a 73-year-old female presenting with a regular follow-up visit. - Reports a new onset allergic reaction to tuna fish, resulting in lip edema, with symptoms appearing after home-prepared tuna consumption. - Increased symptoms of osteoarthritis, particularly affecting the right shoulder and thumb, worsening with cold weather. - Recently documented laboratory tests show elevated fasting glucose levels but controlled hemoglobin A1c, stable elevated alkaline phosphatase, and normal thyroid function. Review of Systems - Dermatological: Reports development of lip edema after consuming tuna. - Musculoskeletal: Reports increased pain in the right shoulder and thumb, aggravated by cold weather. - General: No fever no chills - Neurological: No headaches no dizziness - Ear nose throat: No sore throat no hearing difficulty no ear pain - Cardiovascular: No syncope, no chest pain, no palpitations - Gastrointestinal: No nausea vomiting or diarrhea - Endocrine: No polyuria polydipsia no heat intolerance - Genitourinary: No dysuria , no blood in urine Physical Exam General: No acute distress HEENT: Ear wax present, but not severe Neck: Supple Respiratory system: Able to talk in full sentences, no audible wheeze cardiovascular: S1-S2 regular in rate and rhythm Gastrointestinal: No pain Extremities: Arthritis in right shoulder and thumb 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 - Monitor symptoms of osteoarthritis and manage pain as discussed. - Follow up with a set of laboratory tests before the next visit in three months. - both ears were irrigated today with good result - continue amlodipine for blood pressure control - atorvastatin 20 mg for lipid control - and levothyroxine 100 mcg for hypothyroidism, TSH within normal limit - continue vitamin-D and weight-bearing exercises for osteopenia and vitamin-D deficiency Follow-up 3 months
== END 2024-03-26 09:57 | disposition home or self-care (01) ==
PROVIDERS: PCP Internal Medicine; Visit Provider Internal Medicine
DX: I10 Essential (primary) hypertension (principal); E78.9 Disorder of lipoprotein metabolism, unspecified; E03.9 Hypothyroidism, unspecified; R73.01 Impaired fasting glucose; E55.9 Vitamin D deficiency, unspecified; M85.88 Other specified disorders of bone density and structure, other site; H61.23 Impacted cerumen, bilateral

== ENCOUNTER → 2024-03-26 09:30 | Outpatient (BNVA) | payer MEDICARE, SELFPAY | PROVIDERS: PCP Internal Medicine; Visit Provider Internal Medicine | DX: I10 Essential (primary) hypertension (principal); E78.9 Disorder of lipoprotein metabolism, unspecified; E03.9 Hypothyroidism, unspecified; R73.01 Impaired fasting glucose; E55.9 Vitamin D deficiency, unspecified; M85.88 Other specified disorders of bone density and structure, other site; H61.23 Impacted cerumen, bilateral | CPT/HCPCS: 69209; 96127; 99212 ==

== ENCOUNTER 2024-05-28 11:29 | Outpatient (REF) | payer MEDICARE, SELFPAY | END 2024-05-28 11:30 | disposition home or self-care (01) | LOC: HO.MAMMO 11:29 | PROVIDERS: Visit Provider Internal Medicine | DX: Z12.31 Encounter for screening mammogram for malignant neoplasm of breast (principal) | CPT/HCPCS: 77063; 77067 ==

== ENCOUNTER → 2024-05-28 12:30 | Outpatient (BNV) | payer MEDICARE, SELFPAY | PROVIDERS: Visit Provider Internal Medicine | DX: Z12.31 Encounter for screening mammogram for malignant neoplasm of breast (principal) | CPT/HCPCS: 77063; 77067 ==

== ENCOUNTER 2024-06-03 10:46 | Outpatient (AMB) | payer MEDICARE, SELFPAY ==
[2024-06-03 10:50] VITALS: BP 120/74; PULSE 76; BMI 23.5
--- NOTE | 2024-06-03 10:50 | MHC.OFFVIS ---
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 Allergies Sulfa (Sulfonamide Antibiotics) [SULFA (SULFONAMIDE ANTIBIOTICS)] Allergy (Severe, Verified 03/26/24 09:32) RASH ALL OVER BODY,FACE, rash Penicillins Allergy (Mild, Verified 03/26/24 09:32) THROAT SWELLING lisinopril Allergy (Unknown, Verified 03/26/24 09:32) cough penicillin V Allergy (Unknown, Verified 03/26/24 09:32) tongue banana [BANANA] Adverse Reaction (Severe, Verified 03/26/24 09:32) STOMACH UPSET/PAIN hazelnut [HAZELNUT] Adverse Reaction (Intermediate, Verified 03/26/24 09:32) UPSET STOMACH tuna Allergy (Mild, Uncoded 03/26/24 09:38) Facial Swelling Medication List - Last Reconciled 06/03/24 by Jerome Pappas MD amlodipine 10 mg PO DAILY 90 days atorvastatin 20 mg PO DAILY 90 days levothyroxine 100 mcg PO DAILY 90 days HPI Comments Details: Corinne comes for follow-up. She has been doing very well. She remains very active. She intermittently feels a flutter and palpitation in his chest. The symptoms are very infrequent. Did not life-limiting. Denies any exertional chest pain or shortness of breath. No orthopnea, PND. No lightheadedness, syncope. Takes all her medications regularly. [facility] Medical History Cardiac pacemaker in situ SSS (sick sinus syndrome) Aortic stenosis Excessive cerumen in both ear canals Vitamin D deficiency Asthma, mild Osteopenia Impaired fasting blood sugar Psoriasis Hypothyroidism Lipid disorder Hypertension, essential Surgical History History of colonoscopy History of cystoscopy History of tooth extraction Family History Father History of CVA (cerebrovascular accident) HTN (hypertension) Depression Mother History of CVA (cerebrovascular accident) CAD (coronary artery disease) HTN (hypertension) Colitis Sister Myocardial infarction CAD (coronary artery disease) Colitis Brother Diabetes mellitus Maternal Aunt Breast cancer CAD (coronary artery disease) HTN (hypertension) Maternal Grandfather No problems noted. Maternal Grandmother No problems noted. Paternal Grandfather No problems noted. Paternal Grandmother No problems noted. Son No problems noted. Son No problems noted. Daughter No problems noted. Social History Housing: House Alcohol intake: current Alcohol intake frequency: a few times a week Patient Tobacco Use Status: Former Tobacco user Tobacco use type: Cigarette Cigarette Packs Per Day: 1 e-Cigarette/Vaping Use: Never Used service: No Current occupational status: retired Cognitive needs: No Hearing needs: No Vision needs: No Female Reproductive History Menstrual Age of Menarche: 13 Review of Systems Const Denies chills, Denies fatigue, Denies fever(s), Denies frequent falls, Denies weakness, Denies weight gain and Denies weight loss ENT Denies dizziness Card Denies chest pain, Denies leg edema, Denies lightheadedness, Denies palpitations, Denies dyspnea, Denies dyspnea on exertion, Denies orthopnea and Denies other (loss of consciousness) Resp Denies cough, Denies dyspnea and Denies dyspnea on exertion GI Denies hematochezia and Denies change in stool character Musc Denies abnormal gait, Denies muscle weakness, Denies numbness, Denies radiating pain into limb and Denies tingling Neuro Denies abnormal gait, Denies dizziness, Denies frequent falls, Denies numbness, Denies tingling and Denies weakness Endo Denies fatigue and Denies palpitations Physical Exam Vital Signs: Last Vital Signs Pulse 76 06/03/24 10:50 BP 120/74 06/03/24 10:50 BMI result Body Mass Index 23.5 Const General: cooperative, healthy appearing, comfortable and no acute distress Orientation/consciousness: patient oriented x3 Neck Neck: Yes normal visual inspection and Yes no JVD Carotids: normal carotid upstroke Resp Effort & Inspection: normal respiratory effort Auscultation: clear to auscultation bilaterally, no crackles, no rales, no rhonchi and no wheezes Cardio Jugular venous distension: no JVD Rate: regular rate Rhythm: regular rhythm Heart sounds: S1 normal heart sound present, S2 normal heart sound present, no gallops, Murmur heart sound present systolic early and no rubs Peripheral pulses: Peripheral pulses 2+ throughout GI Inspection: Yes normal to inspection Neuro General: patient oriented x3 Extrem General: Yes normal to inspection, No no pedal edema and No calf tenderness Office Procedures Cardiac Device Check Cardiac Device Check Details: Dual-chamber Medtronic pacemaker in place. Programmed in MVP mode with rate response at 60 beats per minute. Atrial pacing 12% of the time. Rare episodes of isolated PVCs noted. Three episodes of nonsustained VT noted. No symptoms reported during that time. Atrial pacing thresholds are excellent. Ventricular pacing thresholds elevated unchanged. Pacing lead impedance is stable. Atrial and ventricular sensing is adequate. Battery life is at about 2 years 13268-ZX Cardiac Device Check, pacemaker dual lead Procedure code (CPT) selection complete EKG Details: EKG shows normal sinus rhythm normal EKG 78982-[id number], Complete Assessment & Plan Assessment & Plan (1) Cardiac pacemaker in situ: Comment: Dual-chamber Medtronic pacemaker for sick sinus syndrome Code(s): Z95.0 - Presence of cardiac pacemaker Category: Medical Plan: Cardiac pacemaker in-situ for sick sinus syndrome. Pacemaker is working well. Patient using it about 12% time. Will continue follow remotely every 3 months and follow up in the clinic in 1 year's time. (2) Hypertension, essential: Code(s): I10 - Essential (primary) hypertension Category: Medical Plan: Hypertension which is currently well optimized advised to monitor blood pressure at home maintain a log. Goal blood pressure less than 130/84. Continue statin therapy with target goal LDL less than 100 mg/dL. Encouraged to maintain activity level as tolerated. Advised to call me with any new symptoms including any exertional symptoms. (3) PVCs (premature ventricular contractions): Code(s): I49.3 - Ventricular premature depolarization Category: Medical Plan: PVCs which are infrequent but she has intermittent symptoms. Symptoms are not life-limiting. We discussed about overall benign prognosis with isolated PVCs. She understands agrees. She was becomes highly more symptomatic may consider beta-joann therapy. Avoidance of stimulants was discussed. Stress mitigation strategies were discussed. Follow up in the clinic in 1 year's time, sooner p.r.n.. Thank you for allowing me to partake in her care Coding Level of Care Code Est Pt Level 4 (70636) Complex EM visit Add On G2211 Diagnoses Cardiac pacemaker in situ Z95.0 Hypertension, essential I10 PVCs (premature ventricular contractions) I49.3 CPT Codes Cardiac Device Check - Cardiac Device 2: [id number] Cardiac Device Check, pacemaker dual lead ([id number]) EKG - CPT: 60144-[id number], Complete ([id number])
== END 2024-06-03 11:24 | disposition home or self-care (01) ==
LOC: HO.HCS 10:47
PROVIDERS: PCP Internal Medicine; Visit Provider Internal Medicine Cardiovascular Disease
DX: I49.3 Ventricular premature depolarization (principal); I10 Essential (primary) hypertension; Z95.0 Presence of cardiac pacemaker
CPT/HCPCS: 93010; 93280; 99214; G2211

== ENCOUNTER → 2024-06-03 10:46 | Outpatient (BNVA) | payer MEDICARE, SELFPAY | PROVIDERS: PCP Internal Medicine; Visit Provider Internal Medicine Cardiovascular Disease | DX: I10 Essential (primary) hypertension (principal); I49.3 Ventricular premature depolarization; Z45.018 Encounter for adjustment and management of other part of cardiac pacemaker | CPT/HCPCS: 93005; 93280; 99212 ==

== ENCOUNTER 2024-07-23 12:13 | Outpatient (AMB) | payer MEDICARE, SELFPAY ==
--- NOTE | 2024-07-23 12:41 | AM.OFFWIN_ITS ---
Intake Vital Signs 07/23/24 12:42 Weight 159 lb 1 oz BP 116/64 Blood Pressure Location Rt brachial Position Sitting Pulse 68 Pulse Source Pulse Oximeter Pulse Oximetry (%) 96 Oxygen Delivery Method Room Air Intake Visit Reasons: EP- RT shoulder, tick bite, itchy, 2 days Intake Note: Patient here for tick bite on shoulder, she did take it out but is unsure if its completely out. Patient Tobacco Use Status: Former Tobacco user Allergies Sulfa (Sulfonamide Antibiotics) [SULFA (SULFONAMIDE ANTIBIOTICS)] Allergy (Severe, Verified 07/23/24 12:47) RASH ALL OVER BODY,FACE, rash Penicillins Allergy (Mild, Verified 07/23/24 12:47) THROAT SWELLING lisinopril Allergy (Unknown, Verified 07/23/24 12:47) cough penicillin V Allergy (Unknown, Verified 07/23/24 12:47) tongue banana [BANANA] Adverse Reaction (Severe, Verified 07/23/24 12:47) STOMACH UPSET/PAIN hazelnut [HAZELNUT] Adverse Reaction (Intermediate, Verified 07/23/24 12:47) UPSET STOMACH tuna Allergy (Mild, Uncoded 07/23/24 12:47) Facial Swelling Medication List - Last Reconciled 07/23/24 by Cole Mei MD amlodipine 10 mg PO DAILY 30 days atorvastatin 20 mg PO DAILY 90 days levothyroxine 100 mcg PO DAILY 90 days HPI EP- RT shoulder, tick bite, itchy, 2 days HPI Details History - The patient is a 74-year-old female wi th a history of diabetes, thyroidism, lipid disorder presenting with a skin rash following a tick bite. - The tick bite occurred approximately t wo days prior on the right shoulder and was removed by the patient's daughter. - Following the removal of the tick, the patient observed the development of a rash at the site of the bite. Patient is also due for labs last set of lab was November of last year . Problem List - Tick Bite - Rash - Essential Hypertension - lipid disorder - hypothyroidism Patient Instructions - Begin taking doxycycline as prescribed . - Ensure to fast before the blood test s cheduled on July 29. - Schedule a follow-up visit on July 29 to evaluate the rash and regular follow-up. Review of Systems - General: No fever no chills - Neurological: No headaches no dizziness - Ear nose throat: No sore throat no hearing difficulty no ear pain - Cardiovascular: No syncope, no chest pain, no palpitations - Gastrointestinal: No nausea vomiting or diarrhea - Endocrine: No polyuria polydipsia no heat intolerance - Genitourinary: No dysuria , no blood in urine Physical Exam General: No acute distress HEENT: No acute findings, ears need cleaning Neck: Supple Respiratory system: Able to talk in full sentences, no audible wheeze Cardiovascular: S1-S2 regular in rate and rhythm Gastrointestinal: No pain Extremities: Rash developing on right shoulder 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 x3 motor sensory intact Skin: Normal turgor [facility] Medical History Cardiac pacemaker in situ SSS (sick sinus syndrome) Aortic stenosis Excessive cerumen in both ear canals Vitamin D deficiency Asthma, mild Osteopenia Impaired fasting blood sugar Psoriasis Hypothyroidism Lipid disorder Hypertension, essential Surgical History History of colonoscopy History of cystoscopy History of tooth extraction Family History Father History of CVA (cerebrovascular accident) HTN (hypertension) Depression Mother History of CVA (cerebrovascular accident) CAD (coronary artery disease) HTN (hypertension) Colitis Sister Myocardial infarction CAD (coronary artery disease) Colitis Brother Diabetes mellitus Maternal Aunt Breast cancer CAD (coronary artery disease) HTN (hypertension) Maternal Grandfather No problems noted. Maternal Grandmother No problems noted. Paternal Grandfather No problems noted. Paternal Grandmother No problems noted. Son No problems noted. Son No problems noted. Daughter No problems noted. Social History Housing: House Alcohol intake: current Alcohol intake frequency: a few times a week Patient Tobacco Use Status: Former Tobacco user Tobacco use type: Cigarette Cigarette Packs Per Day: 1 e-Cigarette/Vaping Use: Never Used service: No Current occupational status: retired Cognitive needs: No Hearing needs: No Vision needs: No Female Reproductive History Menstrual Age of Menarche: 13 Physical Exam Vital Signs: Last Vital Signs Pulse 68 07/23/24 12:42 BP 116/64 07/23/24 12:42 Pulse Ox 96 07/23/24 12:42 Oxygen Delivery Method Room Air 07/23/24 12:42 Assessment & Plan Assessment & Plan (1) Tick bite of back: Code(s): S30.860A - Insect bite (nonvenomous) of lower back and pelvis, initial encounter ; W57.XXXA - Bitten or stung by nonvenomous insect and other nonvenomous arthropods, initial encounter Qualifiers: Encounter type: initial encounter Qualified Code(s): S30.860A - Insect bite (nonvenomous) of lower back and pelvis, initial encounter; W57.XXXA - Bitten or stung by nonvenomous insect and other nonvenomous arthropods, initial encounter (2) Rash: Code(s): R21 - Rash and other nonspecific skin eruption (3) Hypertension, essential: Code(s): I10 - Essential (primary) hypertension (4) Lipid disorder: Code(s): E78.9 - Disorder of lipoprotein metabolism, unspecified (5) Hypothyroidism: Code(s): E03.9 - Hypothyroidism, unspecified Qualifiers: Hypothyroidism type: unspecified Qualified Code(s): E03.9 - Hypothyroidism, unspecified (6) Psoriasis: Code(s): L40.9 - Psoriasis, unspecified (7) Impaired fasting blood sugar: Code(s): R73.01 - Impaired fasting glucose (8) Osteopenia: Code(s): M85.80 - Other specified disorders of bone density and structure, unspecified site Qualifiers: Osteopenia location: lumbar spine Qualified Code(s): M85.88 - Other specified disorders of bone density and structure, other site Plan History - The patient is a 74-year-old female with a history of diabetes, thyroidism, lipid disorder presenting with a skin rash following a tick bite. - The tick bite occurred approximately two days prior on the right shoulder and was removed by the patient's daughter. - Following the removal of the tick, the patient observed the development of a rash at the site of the bite. Patient is also due for labs last set of lab was November of last year . Problem List - Tick Bite - Rash - Essential Hypertension - lipid disorder - hypothyroidism Patient Instructions - Begin taking doxycycline as prescribed. - Ensure to fast before the blood test scheduled on July 29. - Schedule a follow-up visit on July 29 to evaluate the rash and regular follow-up. Orders: Orders Hemoglobin A1c Today E03.9 - Hypothyroidism, unspecified, E78.9 - Disorder of lipoprotein metabolism, unspecified, I10 - Essential (primary) hypertension, L40.9 - Psoriasis, unspecified, M85.88 - Other specified disorders of bone density and structure, other site, R21 - Rash and other nonspecific skin eruption, R73.01 - Impaired fasting glucose, S30.860A - Insect bite (nonvenomous) of lower back and pelvis, initial encounter, W57.XXXA - Bitten or stung by nonvenomous insect and other nonvenomous arthropods, initial encounter Lipid Panel Today E03.9 - Hypothyroidism, unspecified, E78.9 - Disorder of lipoprotein metabolism, unspecified, I10 - Essential (primary) hypertension, L40.9 - Psoriasis, unspecified, M85.88 - Other specified disorders of bone density and structure, other site, R21 - Rash and other nonspecific skin eruption, R73.01 - Impaired fasting glucose, S30.860A - Insect bite (nonvenomous) of lower back and pelvis, initial encounter, W57.XXXA - Bitten or stung by nonvenomous insect and other nonvenomous arthropods, initial encounter TSH reflex Free T4 Today E03.9 - Hypothyroidism, unspecified, E78.9 - Disorder of lipoprotein metabolism, unspecified, I10 - Essential (primary) hypertension, L40.9 - Psoriasis, unspecified, M85.88 - Other specified disorders of bone density and structure, other site, R21 - Rash and other nonspecific skin eruption, R73.01 - Impaired fasting glucose, S30.860A - Insect bite ( nonvenomous) of lower back and pelvis, initial encounter, W57.XXXA - Bitten or stung by nonvenomous insect and other nonvenomous arthropods, initial encounter Complete Blood Count Auto Diff Today E03.9 - Hypothyroidism, unspecified, E78.9 - Disorder of lipoprotein metabolism, unspecified, I10 - Essential (primary) hypertension, L40.9 - Psoriasis, unspecified, M85.88 - Other specified disorders of bone density and structure, other site, R21 - Rash and other nonspecific skin eruption, R73.01 - Impaired fasting glucose, S30.860A - Insect bite (nonvenomous) of lower back and pelvis, initial encounter, W57.XXXA - Bitten or stung by nonvenomous insect and other nonvenomous arthropods, initial encounter Comprehensive Unity. Panel Fast Today E03.9 - Hypothyroidism, unspecified, E78.9 - Disorder of lipoprotein metabolism, unspecified, I10 - Essential (primary) hypertension, L40.9 - Psoriasis, unspecified, M85.88 - Other specified disorders of bone density and structure, other site, R21 - Rash and other nonspecific skin eruption, R73.01 - Impaired fasting glucose, S30.860A - Insect bite (nonvenomous) of lower back and pelvis, initial encounter, W57.XXXA - Bitten or stung by nonvenomous insect and other nonvenomous arthropods, initial encounter Medications: New doxycycline hyclate 100 mg PO BID 14 days 28 caps 0RF Coding Level of Care Code Est Pt Level 3 (79892) Diagnoses Tick bite of back, initial encounter S30.860A; W57.XXXA Encounter type: initial encounter Rash R21 Hypertension, essential I10 Lipid disorder E78.9 Hypothyroidism, unspecified type E03.9 Hypothyroidism type: unspecified Psoriasis L40.9 Impaired fasting blood sugar R73.01 Osteopenia of lumbar spine M85.88 Osteopenia location: lumbar spine
[2024-07-23 12:42] VITALS: BP 116/64; PULSE 68; O2SAT 96
== END 2024-07-23 12:56 | disposition home or self-care (01) ==
PROVIDERS: PCP Internal Medicine; Visit Provider Internal Medicine
DX: S30.860A Insect bite (nonvenomous) of lower back and pelvis, initial encounter (principal); W57.XXXA Bitten or stung by nonvenomous insect and other nonvenomous arthropods, initial encounter; R21 Rash and other nonspecific skin eruption; I10 Essential (primary) hypertension; E78.9 Disorder of lipoprotein metabolism, unspecified; E03.9 Hypothyroidism, unspecified; L40.9 Psoriasis, unspecified; R73.01 Impaired fasting glucose; M85.88 Other specified disorders of bone density and structure, other site

== ENCOUNTER → 2024-07-23 12:13 | Outpatient (BNVA) | payer MEDICARE, SELFPAY | PROVIDERS: PCP Internal Medicine; Visit Provider Internal Medicine | DX: S30.860A Insect bite (nonvenomous) of lower back and pelvis, initial encounter (principal); W57.XXXA Bitten or stung by nonvenomous insect and other nonvenomous arthropods, initial encounter; R21 Rash and other nonspecific skin eruption; E78.9 Disorder of lipoprotein metabolism, unspecified; L40.9 Psoriasis, unspecified; R73.01 Impaired fasting glucose; M85.88 Other specified disorders of bone density and structure, other site; E03.9 Hypothyroidism, unspecified | CPT/HCPCS: 99212 ==

== ENCOUNTER 2024-07-24 08:57 | Outpatient (REF) | payer MEDICARE, SELFPAY ==
[2024-07-24 10:33] LABS: MANUAL DIFF FLAG NO
[2024-07-24 10:46] LABS: Basophils Absolute Auto 0.1 X10*3/uL (0.0-0.2); Basophils Percent Auto 1.5 % (0-2); Eosinophils Absolute Auto 0.4 X10*3/uL (0.0-0.4); Hematocrit 42.1 % (37.0-47.0); Imm Gran Abs Auto 0.01 X10*3/uL (0.00-0.03); Imm Gran Pct Auto 0.2 % (0.0-0.4); Lymphocytes Absolute Auto 2.1 X10*3/uL (1.2-4.9); Lymphocytes Percent Auto 34.9 % (20-40); Mean Corpuscular HGB Conc 35.6 g/dl (31.0-35.0); Mean Corpuscular Hemoglobin 32.8 pg (27.0-33.0); Mean Corpuscular Volume 91.9 fL (80.0-98.0); Mean Platelet Volume 9.8 fL (9.4-12.3); Monocytes Absolute Auto 0.4 X10*3/uL (0.1-1.2); Neutrophils Percent Auto 49.4 % (45-73); Platelet Count 280 X10*3/uL (160-400); Red Blood Count 4.58 X10*6/uL (4.20-5.50); Red Cell Distribution Width 13.8 % (11.0-16.0); White Blood Count 6.1 X10*3/uL (4.8-10.8)
[2024-07-24 10:48] LABS: Estimated Average Glucose 114 mg/dL; Hemoglobin A1c % 5.6 % (<6.0); Total Hemoglobin (HGBA1C) 3905.0255 umol/L
[2024-07-24 10:59] LABS: Alanine Aminotransferase 39 U/L (0-31); Albumin Level 4.2 g/dL (3.5-5.0); Alkaline Phosphatase 115 U/L (39-117); Anion Gap 10 (12-20); Aspartate Amino Transferase 28 U/L (5-31); Bilirubin Total 0.5 mg/dL (0.0-1.0); Blood Urea Nitrogen 12 mg/dL (9-16); Calcium 9.5 mg/dL (8.4-10.2); Carbon Dioxide 28 mmol/L (22-29); Chloride 106 mmol/L (96-108); Cholesterol 127 mg/dL (<200); Estimated Glomerular Filt Rate > 60; Glucose Fasting 121 mg/dL (60-99); HDL Cholesterol 38 mg/dL (>40); LDL Cholesterol Calculated 72 mg/dL (<100); Potassium 3.6 mmol/L (3.3-5.1); Sodium 140 mmol/L (135-145); Total Protein 7.6 g/dL (6.5-8.0); Triglycerides 88 mg/dL (<150)
[2024-07-24 11:20] LABS: TSH reflex Free T4 0.72 uIU/mL (0.32-4.0)
== END 2024-07-24 08:58 | disposition home or self-care (01) ==
LOC: HO.HMGCLDS 08:57
PROVIDERS: PCP Internal Medicine; Visit Provider Internal Medicine
DX: I10 Essential (primary) hypertension (principal); E78.9 Disorder of lipoprotein metabolism, unspecified; E03.9 Hypothyroidism, unspecified; L40.9 Psoriasis, unspecified; R73.01 Impaired fasting glucose; M85.88 Other specified disorders of bone density and structure, other site; S30.860A Insect bite (nonvenomous) of lower back and pelvis, initial encounter; W57.XXXA Bitten or stung by nonvenomous insect and other nonvenomous arthropods, initial encounter; R21 Rash and other nonspecific skin eruption
CPT/HCPCS: 36415; 80053; 80061; 83036; 84443; 85025

== ENCOUNTER 2024-07-29 09:25 | Outpatient (AMB) | payer MEDICARE, SELFPAY ==
[2024-07-29 09:29] VITALS: BP 132/68; PULSE 80; O2SAT 97; BMI 23.7
--- NOTE | 2024-07-29 09:29 | A.OFFPC_ITS ---
Vital Signs 07/29/24 09:29 Height 5 ft 8 in Weight 156 lb 2 oz BMI 23.7 BP 132/68 Blood Pressure Location Rt brachial Position Sitting Pulse 80 Pulse Source Pulse Oximeter Pulse Oximetry (%) 97 Oxygen Delivery Method Room Air Intake Visit Reasons: Med. Review Allergies Sulfa (Sulfonamide Antibiotics) [SULFA (SULFONAMIDE ANTIBIOTICS)] Allergy (Severe, Verified 07/29/24 09:34) RASH ALL OVER BODY,FACE, rash Penicillins Allergy (Mild, Verified 07/29/24 09:34) THROAT SWELLING lisinopril Allergy (Unknown, Verified 07/29/24 09:34) cough penicillin V Allergy (Unknown, Verified 07/29/24 09:34) tongue banana [BANANA] Adverse Reaction (Severe, Verified 07/29/24 09:34) STOMACH UPSET/PAIN hazelnut [HAZELNUT] Adverse Reaction (Intermediate, Verified 07/29/24 09:34) UPSET STOMACH tuna Allergy (Mild, Uncoded 07/29/24 09:34) Facial Swelling Medication List - Last Reconciled 07/29/24 by Cole Mei MD amlodipine 10 mg PO DAILY 30 days atorvastatin 20 mg PO DAILY 90 days doxycycline hyclate 100 mg PO BID 14 days levothyroxine 100 mcg PO DAILY 90 days Tobacco use date assessed: 07/29/24 Fall risk assessment: No Falls in past year Last assessed Fall Risk: 07/29/24 Dental Screening Dental Screen Date: 07/29/24 Did you have a dental visit in the last 12 months?: Yes Did you have a dental problem in the last 6 months where you did not have access to dental care?: No Was dental information given to patient?: Patient has dentist HPI Med. Review HPI Details - The patient is a 74-year-old female pr esenting with medication refill requests and an ongoing issue of ear wax buildup. She has history of impaired fasting sugar, psoriasis, hypothyroidism, lipid disorder, hypertension, excessive buildup of wax in her ears, she comes in every three-month for ear irrigation as well Patient also has a history of cardiac pacemaker and is established with Cardiology [facility] Dr. Pappas - patient was recently seen in walk-in [facility] after tick bite and had developed rash, she was treated with doxycycline which caused some heartburn but she is okay now - The patient reports prediabetes, with a current fasting glucose level of 121 mg/dL. Previously attempted Metformin usage but was discontinued in favor of dietary management. An HbA1c of 5.6% reflects current dietary control. - History of psoriasis with seasonal imp rovement noted during the summer months. - Reports taking fish oil supplementatio n for osteopenia, assuming it contains Vitamin D. - Currently managed with amlodipine, mackenzie rvastatin, and levothyroxine, once every three months, with visits primarily centered around ear wax management. Problem List - Peptic Ulcer Disease (with recent exac erbation) - Heartburn secondary to Doxycycline use - Prediabetes - Osteopenia - Psoriasis - Hypothyroidism - Essential Hypertension - Hyperlipidemia - cardiac pacemaker managed by Cardiolog y Dr. Pappas Patient Instructions - Continue a diet free of sweets to martinez ge prediabetes. - Amlodipine, atorvastatin, and levothyr oxine will be refilled; ensure you take these as prescribed. - Ear wax cleaning will be completed tod ay; return every three to four months for cleaning. - Continue taking fish oil as per francy t regimen. - Follow up on any changes in symptoms o r concerns. Review of Systems - General: No fever no chills - Neurological: No headaches no dizziness - Ear nose throat: No sore throat no hearing difficulty no ear pain - Cardiovascular: No syncope, no chest pain, no palpitations - Gastrointestinal: No nausea vomiting or diarrhea - Endocrine: No polyuria polydipsia no heat intolerance - Genitourinary: No dysuria , no blood in urine Physical Exam - General: No acute distress - HEENT: No acute findings , both ears irrigated with good result - Neck: Supple - Respiratory system: Able to talk in f ull sentences, no audible wheeze - Cardiovascular: S1-S2 regular in rate and rhythm - Gastrointestinal: No pain - Extremities: No new findings - 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 x3 motor se nsory intact - Skin: Normal turgor PFSH Medical History Cardiac pacemaker in situ SSS (sick sinus syndrome) Aortic stenosis Excessive cerumen in both ear canals Vitamin D deficiency Asthma, mild Osteopenia Impaired fasting blood sugar Psoriasis Hypothyroidism Lipid disorder Hypertension, essential Surgical History History of colonoscopy History of cystoscopy History of tooth extraction Family History Father History of CVA (cerebrovascular accident) HTN (hypertension) Depression Mother History of CVA (cerebrovascular accident) CAD (coronary artery disease) HTN (hypertension) Colitis Sister Myocardial infarction CAD (coronary artery disease) Colitis Brother Diabetes mellitus Maternal Aunt Breast cancer CAD (coronary artery disease) HTN (hypertension) Maternal Grandfather No problems noted. Maternal Grandmother No problems noted. Paternal Grandfather No problems noted. Paternal Grandmother No problems noted. Son No problems noted. Son No problems noted. Daughter No problems noted. Social History Housing: House Alcohol intake: current Alcohol intake frequency: a few times a week Patient Tobacco Use Status: Former Tobacco user Tobacco use type: Cigarette Cigarette Packs Per Day: 1 e-Cigarette/Vaping Use: Never Used service: No Current occupational status: retired Cognitive needs: No Hearing needs: No Vision needs: No Female Reproductive History Menstrual Age of Menarche: 13 Questionnaire Thrive Questionnaire Date Thrive assessed: 07/29/24 I am a: Patient What is your living situation today?: I have a steady place to live Within the past 12 months, did the food you bought not last and you didn't have the money to get more?: Never true Within the past 12 months, did you worry whether your food would run out before you got money to buy more?: Never true Do you have trouble paying for medicines?: No Do you have trouble getting transportation to medical appointments?: No Do you have trouble paying your heating and electricity bill?: No Do you have trouble taking care of your child, family member or friend?: No Do you have trouble with day-to-day activities such as bathing, preparing meals, shopping, managing finances, etc.?: No Are you currently unemployed and looking for a job?: No Are you interested in more education?: No Please select the resources that you would like help with: None Currently or been in a relationship where the following occur: No concerns reported THRIVE Score: 0 AUDIT C Alcohol Use Questionnaire (AUDIT-C) 1. How often do you have a drink containing alcohol?: 2-4 times a month 2. How many drinks containing alcohol do you have on a typical day when you are drinking?: 3 or 4 3. How often do you have six or more drinks on one occasion?: Weekly Total Score: 6 Score Reviewed/Action Taken: Yes KM-7 AMB Questionnaire KM-7 Date KM - 7 assessed: 03/26/24 Source: Developed by Drs. Sylvester Morel, Quiana Trevizo, Asif Shaffer and colleagues, with an educational vanda from [employer]. Physical exam (Primary Care) Vital Signs: Last Vital Signs Pulse 80 07/29/24 09:29 BP 132/68 07/29/24 09:29 Pulse Ox 97 07/29/24 09:29 Oxygen Delivery Method Room Air 07/29/24 09:29 BMI result Body Mass Index 23.7 Tobacco/Smoking Status: Tobacco use Status Tobacco use date assessed 07/29/24 07/29/24 09:35 Patient Tobacco Use Status Former Tobacco user 07/29/24 09:30 Tobacco use type Cigarette 07/29/24 09:30 e-Cigarette/Vaping Use Never Used 07/29/24 09:30 Thrive Assessment: Date of Thrive Assessment Date Thrive assessed 07/29/24 07/29/24 09:35 Currently or been in a relationship where the following occur: No concerns reported Office Procedures Cerumen Removal From which ear canal was the cerumen removed: bilateral Removal: irrigation Notes: patient tolerated procedure well, no complications and ear canal clear [id number] Irrigation/Lavage Coding Level of Care Code Est Pt Level 4 (13688) Complex EM visit Add On G2211 Diagnoses Hypertension, essential I10 Lipid disorder E78.9 Hypothyroidism, unspecified type E03.9 Hypothyroidism type: unspecified Excessive cerumen in both ear canals H61.23 Psoriasis L40.9 Impaired fasting blood sugar R73.01 Osteopenia of lumbar spine M85.88 Osteopenia location: lumbar spine Cardiac pacemaker in situ Z95.0 CPT Codes Office Procedure - CPT: 18659-Qte Irrigation/Lavage ([id number]) Assessment & Plan Assessment & Plan (1) Hypertension, essential: Code(s): I10 - Essential (primary) hypertension Category: Medical (2) Lipid disorder: Code(s): E78.9 - Disorder of lipoprotein metabolism, unspecified Category: Medical (3) Hypothyroidism: Code(s): E03.9 - Hypothyroidism, unspecified Category: Medical Qualifiers: Hypothyroidism type: unspecified Qualified Code(s): E03.9 - Hypothyroidism, unspecified (4) Excessive cerumen in both ear canals: Code(s): H61.23 - Impacted cerumen, bilateral Category: Medical (5) Psoriasis: Code(s): L40.9 - Psoriasis, unspecified Category: Medical (6) Impaired fasting blood sugar: Code(s): R73.01 - Impaired fasting glucose Category: Medical (7) Osteopenia: Code(s): M85.80 - Other specified disorders of bone density and structure, unspecified site Category: Medical Qualifiers: Osteopenia location: lumbar spine Qualified Code(s): M85.88 - Other specified disorders of bone density and structure, other site (8) Cardiac pacemaker in situ: Comment: Dual-chamber Medtronic pacemaker for sick sinus syndrome Code(s): Z95.0 - Presence of cardiac pacemaker Category: Medical Plan - The patient is a 74-year-old female presenting with medication refill requests and an ongoing issue of ear wax buildup. She has history of impaired fasting sugar, psoriasis, hypothyroidism, lipid disorder, hypertension, excessive buildup of wax in her ears, she comes in every three-month for ear irrigation as well Patient also has a history of cardiac pacemaker and is established with Cardiology [facility] Dr. Pappas - patient was recently seen in walk-in clinic after tick bite and had developed rash, she was treated with doxycycline which caused some heartburn but she is okay now - The patient reports prediabetes, with a current fasting glucose level of 121 mg/dL. Previously attempted Metformin usage but was discontinued in favor of dietary management. An HbA1c of 5.6% reflects current dietary control. - History of psoriasis with seasonal improvement noted during the summer months. - Reports taking fish oil supplementation for osteopenia, assuming it contains Vitamin D. - Currently managed with amlodipine, atorvastatin, and levothyroxine, once every three months, with visits primarily centered around ear wax management. Problem List - Peptic Ulcer Disease (with recent exacerbation) - Heartburn secondary to Doxycycline use - Prediabetes - Osteopenia - Psoriasis - Hypothyroidism - Essential Hypertension - Hyperlipidemia - cardiac pacemaker managed by Cardiology Dr. Pappas Patient Instructions - Continue a diet free of sweets to manage prediabetes. - Amlodipine, atorvastatin, and levothyroxine will be refilled; ensure you take these as prescribed. - Ear wax cleaning will be completed today; return every three to four months for cleaning. - Continue taking fish oil as per current regimen. - Follow up on any changes in symptoms or concerns. Medications: Changed From amlodipine 10 mg PO DAILY 30 days 30 tabs 0RF To amlodipine 10 mg PO DAILY 90 days 90 tabs 1RF Refilled levothyroxine 100 mcg PO DAILY 90 days 90 tabs 1RF atorvastatin 20 mg PO DAILY 90 days 90 tabs 1RF Discontinued doxycycline hyclate Discontinued Reason: Doctor's Order 100 mg PO BID 14 days 28 caps 0RF
== END 2024-07-29 09:46 | disposition home or self-care (01) ==
LOC: HO.HMCC 09:25
PROVIDERS: PCP Internal Medicine; Visit Provider Internal Medicine
DX: I10 Essential (primary) hypertension (principal); E78.9 Disorder of lipoprotein metabolism, unspecified; E03.9 Hypothyroidism, unspecified; H61.23 Impacted cerumen, bilateral; L40.9 Psoriasis, unspecified; R73.01 Impaired fasting glucose; M85.88 Other specified disorders of bone density and structure, other site; Z95.0 Presence of cardiac pacemaker

== ENCOUNTER → 2024-07-29 09:25 | Outpatient (BNVA) | payer MEDICARE, SELFPAY | PROVIDERS: PCP Internal Medicine; Visit Provider Internal Medicine | DX: H61.23 Impacted cerumen, bilateral (principal); I10 Essential (primary) hypertension; E03.9 Hypothyroidism, unspecified; L40.9 Psoriasis, unspecified; R73.01 Impaired fasting glucose; M85.88 Other specified disorders of bone density and structure, other site; K27.9 Peptic ulcer, site unspecified, unspecified as acute or chronic, without hemorrhage or perforation; E78.5 Hyperlipidemia, unspecified; Z95.0 Presence of cardiac pacemaker | CPT/HCPCS: 69209; 99212 ==

== ENCOUNTER → 2024-08-29 23:59 | Outpatient (BNV) | payer MEDICARE, SELFPAY ==
--- NOTE | 2024-09-04 12:12 | A.OFFVIS_ITS ---
Intake Visit Reasons: Remote Device Check- [employer] Allergies Sulfa (Sulfonamide Antibiotics) (SULFA (SULFONAMIDE ANTIBIOTICS)) Allergy (Severe, Verified 07/29/24 09:34) RASH ALL OVER BODY,FACE, rash Penicillins Allergy (Mild, Verified 07/29/24 09:34) THROAT SWELLING lisinopril Allergy (Unknown, Verified 07/29/24 09:34) cough penicillin V Allergy (Unknown, Verified 07/29/24 09:34) tongue banana (BANANA) Adverse Reaction (Severe, Verified 07/29/24 09:34) STOMACH UPSET/PAIN hazelnut (HAZELNUT) Adverse Reaction (Intermediate, Verified 07/29/24 09:34) UPSET STOMACH tuna Allergy (Mild, Uncoded 07/29/24 09:34) Facial Swelling [facility] Medical History Cardiac pacemaker in situ SSS (sick sinus syndrome) Aortic stenosis Excessive cerumen in both ear canals Vitamin D deficiency Asthma, mild Osteopenia Impaired fasting blood sugar Psoriasis Hypothyroidism Lipid disorder Hypertension, essential Surgical History History of colonoscopy History of cystoscopy History of tooth extraction Family History Father History of CVA (cerebrovascular accident) HTN (hypertension) Depression Mother History of CVA (cerebrovascular accident) CAD (coronary artery disease) HTN (hypertension) Colitis Sister Myocardial infarction CAD (coronary artery disease) Colitis Brother Diabetes mellitus Maternal Aunt Breast cancer CAD (coronary artery disease) HTN (hypertension) Maternal Grandfather No problems noted. Maternal Grandmother No problems noted. Paternal Grandfather No problems noted. Paternal Grandmother No problems noted. Son No problems noted. Son No problems noted. Daughter No problems noted. Social History Housing: House Alcohol intake: current Alcohol intake frequency: a few times a week Patient Tobacco Use Status: Former Tobacco user Tobacco use type: Cigarette Cigarette Packs Per Day: 1 e-Cigarette/Vaping Use: Never Used service: No Current occupational status: retired Cognitive needs: No Hearing needs: No Vision needs: No Female Reproductive History Menstrual Age of Menarche: 13 Office Procedures Cardiac Device Check Cardiac Device Check Details: Remote pacemaker report generated 08/29/2024. Pacemaker function is adequate. No arrhythmias noted [id number] Cardiac Device Interrogation, pacemaker Procedure code (CPT) selection complete Assessment & Plan Assessment & Plan (1) Cardiac pacemaker in situ: Comment: Dual-chamber Medtronic pacemaker for sick sinus syndrome Code(s): Z95.0 - Presence of cardiac pacemaker Category: Medical Plan: See above Coding Level of Care Code Procedure Only Diagnoses Cardiac pacemaker in situ Z95.0 CPT Codes Cardiac Device Check - Cardiac Device 12: [id number] Cardiac Device Interrogation, pacemaker ([id number])
== END ==
PROVIDERS: PCP Internal Medicine; Visit Provider Internal Medicine Cardiovascular Disease
DX: I49.5 Sick sinus syndrome (principal); Z95.0 Presence of cardiac pacemaker
CPT/HCPCS: 93294

== ENCOUNTER → 2024-11-28 23:59 | Outpatient (BNV) | payer MEDICARE, SELFPAY ==
--- NOTE | 2024-12-03 13:16 | MHC.OFFVIS ---
Intake Visit Reasons: Remote Device Check- [employer] Allergies Sulfa (Sulfonamide Antibiotics) (SULFA (SULFONAMIDE ANTIBIOTICS)) Allergy (Severe, Verified 12/02/24 11:11) RASH ALL OVER BODY,FACE, rash Penicillins Allergy (Mild, Verified 12/02/24 11:11) THROAT SWELLING lisinopril Allergy (Unknown, Verified 12/02/24 11:11) cough penicillin V Allergy (Unknown, Verified 12/02/24 11:11) tongue banana (BANANA) Adverse Reaction (Severe, Verified 12/02/24 11:11) STOMACH UPSET/PAIN hazelnut (HAZELNUT) Adverse Reaction (Intermediate, Verified 12/02/24 11:11) UPSET STOMACH tuna Allergy (Mild, Uncoded 07/29/24 09:34) Facial Swelling [facility] Medical History Cardiac pacemaker in situ SSS (sick sinus syndrome) Aortic stenosis Excessive cerumen in both ear canals Vitamin D deficiency Asthma, mild Osteopenia Impaired fasting blood sugar Psoriasis Hypothyroidism Lipid disorder Hypertension, essential Surgical History History of colonoscopy History of cystoscopy History of tooth extraction Family History Father History of CVA (cerebrovascular accident) HTN (hypertension) Depression Mother History of CVA (cerebrovascular accident) CAD (coronary artery disease) HTN (hypertension) Colitis Sister Myocardial infarction CAD (coronary artery disease) Colitis Brother Diabetes mellitus Maternal Aunt Breast cancer CAD (coronary artery disease) HTN (hypertension) Maternal Grandfather No problems noted. Maternal Grandmother No problems noted. Paternal Grandfather No problems noted. Paternal Grandmother No problems noted. Son No problems noted. Son No problems noted. Daughter No problems noted. Social History Housing: House Alcohol intake: current Alcohol intake frequency: a few times a week Patient Tobacco Use Status: Former Tobacco user Tobacco use type: Cigarette Cigarette Packs Per Day: 1 e-Cigarette/Vaping Use: Never Used service: No Current occupational status: retired Cognitive needs: No Hearing needs: No Vision needs: No Female Reproductive History Menstrual Age of Menarche: 13 Office Procedures Cardiac Device Check Cardiac Device Check Details: Remote pacemaker report generated 11/28/2024. Pacemaker function is adequate [id number] Cardiac Device Interrogation, pacemaker Procedure code (CPT) selection complete Assessment & Plan Assessment & Plan (1) Cardiac pacemaker in situ: Comment: Dual-chamber Medtronic pacemaker for sick sinus syndrome Code(s): Z95.0 - Presence of cardiac pacemaker Category: Medical Plan: See above Coding Level of Care Code Procedure Only Diagnoses Cardiac pacemaker in situ Z95.0 CPT Codes Cardiac Device Check - Cardiac Device 12: [id number] Cardiac Device Interrogation, pacemaker ([id number])
== END ==
PROVIDERS: PCP Internal Medicine; Visit Provider Internal Medicine Cardiovascular Disease
DX: I49.5 Sick sinus syndrome (principal); Z95.0 Presence of cardiac pacemaker
CPT/HCPCS: 93294

== ENCOUNTER 2024-12-02 10:56 | Outpatient (AMB) | payer MEDICARE, SELFPAY ==
[2024-12-02 11:10] VITALS: BP 122/78; PULSE 73; O2SAT 98; BMI 17.2
--- NOTE | 2024-12-02 11:10 | A.OFFPC_ITS ---
Vital Signs 12/02/24 11:10 Height 5 ft 8 in Weight 113 lb BMI 17.2 BP 122/78 Blood Pressure Location Lt brachial Position Sitting Pulse 73 Pulse Source Pulse Oximeter Pulse Oximetry (%) 98 Intake Visit Reasons: Annual PE Allergies Sulfa (Sulfonamide Antibiotics) (SULFA (SULFONAMIDE ANTIBIOTICS)) Allergy (Severe, Verified 12/02/24 11:11) RASH ALL OVER BODY,FACE, rash Penicillins Allergy (Mild, Verified 12/02/24 11:11) THROAT SWELLING lisinopril Allergy (Unknown, Verified 12/02/24 11:11) cough penicillin V Allergy (Unknown, Verified 12/02/24 11:11) tongue banana (BANANA) Adverse Reaction (Severe, Verified 12/02/24 11:11) STOMACH UPSET/PAIN hazelnut (HAZELNUT) Adverse Reaction (Intermediate, Verified 12/02/24 11:11) UPSET STOMACH tuna Allergy (Mild, Uncoded 07/29/24 09:34) Facial Swelling Medication List - Last Reconciled 12/02/24 by Cole Mei MD amlodipine 10 mg PO DAILY 90 days atorvastatin 20 mg PO DAILY 90 days levothyroxine 100 mcg PO DAILY 90 days Tobacco use date assessed: 07/29/24 Fall risk assessment: No Falls in past year Last assessed Fall Risk: 12/02/24 Dental Screening Dental Screen Date: 07/29/24 HPI Annual PE HPI Details History of Present Illness The patient is a 74-year-old female presenting for physical exam and management of multiple issues. Pre-diabetes: - The patient?s fasting blood glucose le vels were 116 mg/dL at one instance and 121 mg/dL at another, indicating impaired glucose tolerance. - She is aware that a fasting glucose le indra above 99 mg/dL signifies pre- diabetes. - There has been a slight increase in fa sting glucose levels, moving from 116 to 121, necessitating monitoring. Bilateral Shoulder Osteoarthritis: - The patient reports worsening range of motion in both shoulders, with the inability to reach behind her back as previously able. - She experiences pain, specifically in her right hand, which she identifies as quite severe. - The condition, described as frozen sh oulders, has developed over time without prior intervention. - No current medication is being used fo r pain management, although the discomfort affects her sleep (side sleeper). - X-ray is planned for assessment. And physical therapy to be started Ear wax buildup: - The patient requires ear cleaning. Essential Hypertension: - Blood pressure management is currently maintained with amlodipine, which the patient confirms using. 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 - osteopenia - vitamin-D deficiency - arthritis multiple joints - excessive cerumen in both sides requir ing cleaning every 3 months Social History: - Reports drinking alcohol on weekends, approximately two to three times - No longer drives - Maintains an active lifestyle within h er capabilities despite functional limitations due to shoulder pain Health Maintenance - Mammogram completed in May - Colonoscopy performed in January 2021 ; next recommended after 10 years - Routine CBC and electrolytes checked i n July, results were normal - stopped Pap smears and OBGYN visits Patient Instructions - Schedule and complete fasting blood te st - Attend scheduled x-ray for bilateral s houlder assessment - Arrange a few sessions of physical the rapy to learn exercises for shoulder range of motion, then continue at home - Consider limiting alcohol intake to [place] - Maintain appointments every three codie hs for follow-ups, including ear cleaning - labs to be done fasting order is in, m edication refills sent Review of Systems - General: No fever no chills - Neurological: No headaches no dizzin ess - Ear nose throat: No sore throat no hearing difficulty no ear pain - Cardiovascular: No syncope, no chest pain, no palpitations - Gastrointestinal: No nausea vomiting or diarrhea - Endocrine: No polyuria polydipsia no heat intolerance - Genitourinary: No dysuria - Skin: No new complaints Physical Exam General: Cooperative, healthy appearing, comfortable, no acute distress Orientation: Patient oriented x3 Head: Normal to inspection Ears: Requires cleaning excessive cerumen present bilateral, clear after irrigation Nose: Normal external nose present Face and sinus: Normal facial exam Eyes: Appearance normal, extraocular movement intact pupils reactive Neck: Normal visual inspection and supple Respiratory: Normal respiratory effort and able to speak in complete sentences. Clear to auscultation, no stridor Cardiovascular: S1 and S2 RRR Breast exam benign GI: Normal to inspection. Soft to palpation and nontender Skin: Turgor normal, no acute findings Neuro: Patient oriented x3, motor sensory intact, balance intact, tandem pass Extremities: Severe arthritis in right hand, with swelling of small joints and unable to make fist, both shoulders with limited range of motion [facility] Medical History Cardiac pacemaker in situ SSS (sick sinus syndrome) Aortic stenosis Excessive cerumen in both ear canals Vitamin D deficiency Asthma, mild Osteopenia Impaired fasting blood sugar Psoriasis Hypothyroidism Lipid disorder Hypertension, essential Surgical History History of colonoscopy History of cystoscopy History of tooth extraction Family History Father History of CVA (cerebrovascular accident) HTN (hypertension) Depression Mother History of CVA (cerebrovascular accident) CAD (coronary artery disease) HTN (hypertension) Colitis Sister Myocardial infarction CAD (coronary artery disease) Colitis Brother Diabetes mellitus Maternal Aunt Breast cancer CAD (coronary artery disease) HTN (hypertension) Maternal Grandfather No problems noted. Maternal Grandmother No problems noted. Paternal Grandfather No problems noted. Paternal Grandmother No problems noted. Son No problems noted. Son No problems noted. Daughter No problems noted. Social History Housing: House Alcohol intake: current Alcohol intake frequency: a few times a week Patient Tobacco Use Status: Former Tobacco user Tobacco use type: Cigarette Cigarette Packs Per Day: 1 e-Cigarette/Vaping Use: Never Used service: No Current occupational status: retired Cognitive needs: No Hearing needs: No Vision needs: No Female Reproductive History Menstrual Age of Menarche: 13 Questionnaire PHQ-9 Over the last 2 weeks, how often have you been bothered by any of the following problems? 1. Little interest or pleasure in doing things: not at all 2. Feeling down, depressed, or hopeless: not at all 3. Trouble falling or staying asleep, or sleeping too much: not at all 4. Feeling tired or having little energy: not at all 5. Poor appetite or overeating: not at all 6. Feeling bad about yourself - or that you are a failure or have let yourself or your family down: not at all 7. Trouble concentrating on things, such as reading the newspaper or watching television: not at all 8. Moving or speaking so slowly that other people could have noticed. Or the opposite - being so fidgety or restless that you have been moving around a lot more than usual: not at all 9. Thoughts that you would be better off or of hurting yourself in some way: not at all Total score: 0 Depression Screening Interpretation: Negative Depression Screening Done: Yes 46451 - PHQ-9 Billing: Yes Source: Developed by Drs. Sylvester Morel, Quiana Trevizo, Asif Shaffer and colleagues, with an educational vanda from [employer]. Thrive Questionnaire Date Thrive assessed: 03/26/24 I am a: Patient What is your living situation today?: I have a steady place to live Within the past 12 months, did the food you bought not last and you didn't have the money to get more?: Never true Within the past 12 months, did you worry whether your food would run out before you got money to buy more?: Never true Do you have trouble paying for medicines?: No Do you have trouble getting transportation to medical appointments?: No Do you have trouble paying your heating and electricity bill?: No Do you have trouble taking care of your child, family member or friend?: No Do you have trouble with day-to-day activities such as bathing, preparing meals, shopping, managing finances, etc.?: No Are you currently unemployed and looking for a job?: No Are you interested in more education?: No Please select the resources that you would like help with: None Currently or been in a relationship where the following occur: No concerns reported THRIVE Score: 0 AUDIT C Alcohol Use Questionnaire (AUDIT-C) 1. How often do you have a drink containing alcohol?: 2-4 times a month 2. How many drinks containing alcohol do you have on a typical day when you are drinking?: 3 or 4 3. How often do you have six or more drinks on one occasion?: Weekly Total Score: 6 KM-7 AMB Questionnaire KM-7 Date KM - 7 assessed: 03/26/24 Feeling nervous, anxious, or on edge: 0 = Not at all Not being able to stop or control worryin = Not at all Worrying too much about different things: 0 = Not at all Trouble relaxin = Not at all Being so restless that it is hard to sit still: 0 = Not at all Becoming easily annoyed or irritable: 0 = Not at all Feeling afraid as if something awful might happen: 0 = Not at all Total KM-7 score (0-4 normal; 5-9 mild; 10-14 moderate; 15-21 severe): 0 Source: Developed by Drs. Sylvester Morel, Quiana Trevizo, Asif Shaffer and colleagues, with an educational vanda from [employer]. Physical exam (Primary Care) Vital Signs: Last Vital Signs Pulse 73 12/02/24 11:10 BP 122/78 12/02/24 11:10 Pulse Ox 98 12/02/24 11:10 BMI result Body Mass Index 17.2 Tobacco/Smoking Status: Tobacco use Status Tobacco use date assessed 07/29/24 12/02/24 11:12 Patient Tobacco Use Status Former Tobacco user 12/02/24 11:12 Tobacco use type Cigarette 12/02/24 11:12 e-Cigarette/Vaping Use Never Used 12/02/24 11:12 PHQ-9: PHQ-9 Score PHQ-9: Total score 0 12/02/24 11:12 Depression Screening Interpretation: Negative Thrive Assessment: Date of Thrive Assessment Date Thrive assessed 03/26/24 12/02/24 11:12 Currently or been in a relationship where the following occur: No concerns reported Office Procedures Cerumen Removal From which ear canal was the cerumen removed: bilateral Removal: irrigation Notes: patient tolerated procedure well, no complications and ear canal clear [id number] Irrigation/Lavage Coding Level of Care Code Est Pt Level 4 (27179) Est Pt Prev Care >65y(60467) Diagnoses Encounter for general adult medical examination with abnormal findings Z00.01 Arthritis of hand, right M19.041 Chronic pain of both shoulders M25.511; M25.512; G89.29 Chronicity: chronic PVCs (premature ventricular contractions) I49.3 Pain, joint, hand, right M25.541 Hypertension, essential I10 Lipid disorder E78.9 Hypothyroidism, unspecified type E03.9 Hypothyroidism type: unspecified Impaired fasting blood sugar R73.01 Osteopenia of lumbar spine M85.88 Osteopenia location: lumbar spine Vitamin D deficiency E55.9 Excessive cerumen in both ear canals H61.23 CPT Codes Office Procedure - CPT: 23586-Iaw Irrigation/Lavage ([id number]) Additional Codes PHQ-9 - 05969 - PHQ-9 Billing: Yes ([id number]) Assessment & Plan Assessment & Plan (1) Encounter for general adult medical examination with abnormal findings: Code(s): Z00.01 - Encounter for general adult medical examination with abnormal findings Category: Medical (2) Arthritis of hand, right: Code(s): M19.041 - Primary osteoarthritis, right hand Category: Medical (3) Shoulder pain, bilateral: Code(s): M25.511 - Pain in right shoulder; M25.512 - Pain in left shoulder Category: Medical Qualifiers: Chronicity: chronic Qualified Code(s): M25.511 - Pain in right shoulder; M25.512 - Pain in left shoulder; G89.29 - Other chronic pain (4) PVCs (premature ventricular contractions): Code(s): I49.3 - Ventricular premature depolarization Category: Medical (5) Pain, joint, hand, right: Code(s): M25.541 - Pain in joints of right hand Category: Medical (6) Hypertension, essential: Code(s): I10 - Essential (primary) hypertension Category: Medical (7) Lipid disorder: Code(s): E78.9 - Disorder of lipoprotein metabolism, unspecified Category: Medical (8) Hypothyroidism: Code(s): E03.9 - Hypothyroidism, unspecified Category: Medical Qualifiers: Hypothyroidism type: unspecified Qualified Code(s): E03.9 - Hypothyroidism, unspecified (9) Impaired fasting blood sugar: Code(s): R73.01 - Impaired fasting glucose Category: Medical (10) Osteopenia: Code(s): M85.80 - Other specified disorders of bone density and structure, unspecified site Category: Medical Qualifiers: Osteopenia location: lumbar spine Qualified Code(s): M85.88 - Other specified disorders of bone density and structure, other site (11) Vitamin D deficiency: Code(s): E55.9 - Vitamin D deficiency, unspecified Category: Medical (12) Excessive cerumen in both ear canals: Code(s): H61.23 - Impacted cerumen, bilateral Category: Medical Plan History of Present Illness The patient is a 74-year-old female presenting for physical exam and management of multiple issues. Pre-diabetes: - The patient?s fasting blood glucose levels were 116 mg/dL at one instance and 121 mg/dL at another, indicating impaired glucose tolerance. - She is aware that a fasting glucose level above 99 mg/dL signifies pre- diabetes. - There has been a slight increase in fasting glucose levels, moving from 116 to 121, necessitating monitoring. Bilateral Shoulder Osteoarthritis: - The patient reports worsening range of motion in both shoulders, with the inability to reach behind her back as previously able. - She experiences pain, specifically in her right hand, which she identifies as quite severe. - The condition, described as frozen shoulders, has developed over time without prior intervention. - No current medication is being used for pain management, although the discomfort affects her sleep (side sleeper). - X-ray is planned for assessment. And physical therapy to be started Ear wax buildup: - The patient requires ear cleaning. Essential Hypertension: - Blood pressure management is currently maintained with amlodipine, which the patient confirms using. 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 - osteopenia - vitamin-D deficiency - arthritis multiple joints - excessive cerumen in both sides requiring cleaning every 3 months Social History: - Reports drinking alcohol on weekends, approximately two to three times - No longer drives - Maintains an active lifestyle within her capabilities despite functional limitations due to shoulder pain Health Maintenance - Mammogram completed in May - Colonoscopy performed in January 2021; next recommended after 10 years - Routine CBC and electrolytes checked in July, results were normal - stopped Pap smears and OBGYN visits Patient Instructions - Schedule and complete fasting blood test - Attend scheduled x-ray for bilateral shoulder assessment - Arrange a few sessions of physical therapy to learn exercises for shoulder range of motion, then continue at home - Consider limiting alcohol intake to manage health better - Maintain appointments every three months for follow-ups, including ear cleaning - labs to be done fasting order is in, medication refills sent Orders: Orders Lipid Panel Today E03.9 - Hypothyroidism, unspecified, E55.9 - Vitamin D deficiency, unspecified, E78.9 - Disorder of lipoprotein metabolism, unspecified, H61.23 - Impacted cerumen, bilateral, I10 - Essential (primary) hypertension, I49.3 - Ventricular premature depolarization, M25.511 - Pain in right shoulder, M25.512 - Pain in left shoulder, M25.541 - Pain in joints of rig ht hand, M85.88 - Other specified disorders of bone density and structure, other site, R73.01 - Impaired fasting glucose, Z00.01 - Encounter for general adult medical examination with abnormal findings Vitamin D 25-OH (D2 and D3) Today E55.9 - Vitamin D deficiency, unspecified, M85.88 - Other specified disorders of bone density and structure, other site XR Shoulder Brent min 2V Today M25.511 - Pain in right shoulder, M25.512 - Pain in left shoulder XR hand RT 2V Today M25.541 - Pain in joints of right hand PT Evaluation and Treatment Today M25.511 - Pain in right shoulder, M25.512 - Pain in left shoulder Hemoglobin A1c Today E03.9 - Hypothyroidism, unspecified, E55.9 - Vitamin D deficiency, unspecified, E78.9 - Disorder of lipoprotein metabolism, unspecified, H61.23 - Impacted cerumen, bilateral, I10 - Essential (primary) hypertension, I49.3 - Ventricular premature depolarization, M25.511 - Pain in right shoulder, M25.512 - Pain in left shoulder, M25.541 - Pain in joints of right hand, M85.88 - Other specified disorders of bone density and structure, other site, R73.01 - Impaired fasting glucose, Z00.01 - Encounter for general adult medical examination with abnormal findings Complete Blood Count Auto Diff Today E03.9 - Hypothyroidism, unspecified, E55.9 - Vitamin D deficiency, unspecified, E78.9 - Disorder of lipoprotein metabolism, unspecified, H61.23 - Impacted cerumen, bilateral, I10 - Essential (primary) hypertension, I49.3 - Ventricular premature depolarization, M25.511 - Pain in right shoulder, M25.512 - Pain in left shoulder, M25.541 - Pain in joints of right hand, M85.88 - Other specified disorders of bone density and structure, other site, R73.01 - Impaired fasting glucose, Z00.01 - Encounter for general adult medical examination with abnormal findings Comprehensive [place]. Panel Fast Today E03.9 - Hypothyroidism, unspecified, E55.9 - Vitamin D deficiency, unspecified, E78.9 - Disorder of lipoprotein metabolism, unspecified, H61.23 - Impacted cerumen, bilateral, I10 - Essential (primary) hypertension, I49.3 - Ventricular premature depolarization, M25.511 - Pain in right shoulder, M25.512 - Pain in left shoulder, M25.541 - Pain in joints of right hand, M85.88 - Other specified disorders of bone density and structure, other site, R73.01 - Impaired fasting glucose, Z00.01 - Encounter for general adult medical examination with abnormal findings TSH reflex Free T4 Today E03.9 - Hypothyroidism, unspecified, E55.9 - Vitamin D deficiency, unspecified, E78.9 - Disorder of lipoprotein metabolism, unspecified, H61.23 - Impacted cerumen, bilateral, I10 - Essential (primary) hypertension, I49.3 - Ventricular premature depolarization, M25.511 - Pain in right shoulder, M25.512 - Pain in left shoulder, M25.541 - Pain in joints of right hand, M85.88 - Other specified disorders of bone density and structure, other site, R73.01 - Impaired fasting glucose, Z00.01 - Encounter for general adult medical examination with abnormal findings Medications: Refilled atorvastatin 20 mg PO DAILY 90 tabs 1RF 90 days levothyroxine 100 mcg PO DAILY 90 tabs 0RF 90 days amlodipine 10 mg PO DAILY 90 tabs 1RF 90 days
--- OUTSIDE RECORDS SUMMARY | 2024-12-02 14:48 | XMS_ITS | Patient Health Record ---
[facility] Organization [facility] Address [address] [place] [id number] Care Team Providers Care Molder Feeder Name Role Phone Sylvester Barnhart Unavailable [phone] Reason For Referral No Information Plan Of Treatment No Information
== END 2024-12-02 11:41 | disposition home or self-care (01) ==
LOC: HO.HMCC 10:57
PROVIDERS: PCP Internal Medicine; Visit Provider Internal Medicine
DX: Z00.01 Encounter for general adult medical examination with abnormal findings (principal); M25.511 Pain in right shoulder; M25.512 Pain in left shoulder; M25.541 Pain in joints of right hand; M19.041 Primary osteoarthritis, right hand; I49.3 Ventricular premature depolarization; I10 Essential (primary) hypertension; E78.9 Disorder of lipoprotein metabolism, unspecified; E03.9 Hypothyroidism, unspecified; R73.01 Impaired fasting glucose; M85.88 Other specified disorders of bone density and structure, other site; H61.23 Impacted cerumen, bilateral

== ENCOUNTER → 2024-12-02 10:56 | Outpatient (BNVA) | payer MEDICARE, SELFPAY | PROVIDERS: PCP Internal Medicine; Visit Provider Internal Medicine | DX: Z00.01 Encounter for general adult medical examination with abnormal findings (principal); R73.03 Prediabetes; M19.012 Primary osteoarthritis, left shoulder; M19.011 Primary osteoarthritis, right shoulder; I10 Essential (primary) hypertension; G89.29 Other chronic pain; M19.041 Primary osteoarthritis, right hand; I49.3 Ventricular premature depolarization; M25.541 Pain in joints of right hand; E78.9 Disorder of lipoprotein metabolism, unspecified; E03.9 Hypothyroidism, unspecified; R73.01 Impaired fasting glucose; M85.88 Other specified disorders of bone density and structure, other site; E55.9 Vitamin D deficiency, unspecified; H61.23 Impacted cerumen, bilateral | CPT/HCPCS: 69209; 96127; 99212; 99397 ==

== ENCOUNTER 2024-12-03 09:06 | Outpatient (REF) | payer MEDICARE, SELFPAY ==
[2024-12-03 10:15] LABS: MANUAL DIFF FLAG NO
[2024-12-03 10:36] LABS: Hemoglobin A1C 161.4930 umol/L; Total Hemoglobin (HGBA1C) 4038.0015 umol/L
[2024-12-03 10:37] LABS: Hematocrit 45.1 % (37.0-47.0); Hemoglobin 15.5 g/dl (12.0-16.0); Imm Gran Abs Auto 0.02 X10*3/uL (0.00-0.03); Imm Gran Pct Auto 0.3 % (0.0-0.4); Lymphocytes Absolute Auto 1.9 X10*3/uL (1.2-4.9); Mean Corpuscular HGB Conc 34.4 g/dl (31.0-35.0); Mean Corpuscular Hemoglobin 32.5 pg (27.0-33.0); Mean Corpuscular Volume 94.5 fL (80.0-98.0); NRBC Abs Auto 0.000 X10*3/uL (0.0-0.012); NRBC Pct Auto 0.0 /100WBC (0.0-0.2); Platelet Count 299 X10*3/uL (160-400); Red Blood Count 4.77 X10*6/uL (4.20-5.50); White Blood Count 7.1 X10*3/uL (4.8-10.8)
--- OUTSIDE RECORDS SUMMARY | 2024-12-03 10:42 | XMS_ITS | Patient Health Record ---
Author Organization [facility] Address [address] [place] [id number] Care Team Providers Care Associate Professor Of History Name Role Phone Sylvester Barnhart Unavailable [phone] Reason For Referral No Information Plan Of Treatment No Information
[2024-12-03 11:06] LABS: Alanine Aminotransferase 39 U/L (0-31); Albumin Level 4.6 g/dL (3.5-5.0); Alkaline Phosphatase 127 U/L (39-117); Anion Gap 10 (12-20); Aspartate Amino Transferase 25 U/L (5-31); Blood Urea Nitrogen 10 mg/dL (9-16); Calcium 9.7 mg/dL (8.4-10.2); Carbon Dioxide 29 mmol/L (22-29); Chloride 108 mmol/L (96-108); Cholesterol 139 mg/dL (<200); Estimated Glomerular Filt Rate > 60; HDL Cholesterol 47 mg/dL (>40); Potassium 4.1 mmol/L (3.3-5.1); Sodium 143 mmol/L (135-145); Total Protein 8.0 g/dL (6.5-8.0); Triglycerides 94 mg/dL (<150)
[2024-12-11 15:53] LABS: Vitamin D 25-OH, D2 <4 ng/mL; Vitamin D 25-OH, D3 35 ng/mL; Vitamin D 25-OH, Total 35 ng/mL (30-100)
== END 2024-12-03 09:07 | disposition home or self-care (01) ==
LOC: HO.HMGCLDS 09:06
PROVIDERS: PCP Internal Medicine; Visit Provider Internal Medicine
DX: Z00.01 Encounter for general adult medical examination with abnormal findings (principal); I10 Essential (primary) hypertension; I49.3 Ventricular premature depolarization; R73.01 Impaired fasting glucose; M85.88 Other specified disorders of bone density and structure, other site; H61.23 Impacted cerumen, bilateral; M25.511 Pain in right shoulder; M25.512 Pain in left shoulder; M25.541 Pain in joints of right hand; E78.9 Disorder of lipoprotein metabolism, unspecified; E03.9 Hypothyroidism, unspecified; E55.9 Vitamin D deficiency, unspecified
CPT/HCPCS: 36415; 80053; 80061; 82306; 83036; 84443; 85025

== ENCOUNTER 2025-01-16 13:00 | Outpatient (RCR) | payer MEDICARE, SELFPAY ==
--- NOTE | 2024-12-17 13:45 | MHC.PT.EP ---
[facility] [place] Office [place] Office [place] Office [address] Horace Vasquez [address] [phone] F: [phone] F: [phone] F: [phone] F: [phone] Physical Therapy Plan of Care Date of Evaluation: 12/17/24 Date of Surgery: n/a Diagnosis: B shoulder pain Assessment: Patient is a 74 year old female presenting to PT with complaints of pain in her B shoulders. Pt reports onset of pain began 6 months to 1 year ago due to insidious onset. She presents today with impairments in pain, ROM, posture, shoulder strength. Pt's current occupation is retired, with baseline physical activities including reaching, lifting, ADLs. Pt expresses senior care goal of reducing pain, and is motivated to work towards this in PT. Clinical presentation today is most consistent with signs and sx associated with B shoulder pain and pt will benefit from skilled PT 2 week x 4 weeks to address the following problems and impairments noted upon evaluation: pain, ROM, posture, shoulder strength. These problems limit the patient with the following functional activities: reaching, lifting, ADLs. The prescribed treatment plan of care is medically necessary. Co-morbidities of pacemaker, osteopenia were identified and taken into considerations of plan of care. Pt was educated on HEP, role of PT, prognosis, POC. Frequency and Duration: The patient will be seen 2 x week x 4 weeks Short Term Goals: Pt will demonstrate improved shoulder ROM by 20 degrees in all directions B in 2 weeks. Pt will demonstrate improved B shoulder MMT strength by 1/3 grade in 2 weeks. Shorthand Teacher Goals: Pt will demonstrate improved SPADI score by 13 points in 4 weeks for improved functional mobility. Pt will demonstrate reports of improved ability to reach and lift with min to no pain or difficulty in 4 weeks for return to PLOF. Pt will demonstrate ability to complete household duties and ADLs with min to no pain in 4 weeks for return to PLOF. Treatment Plan: Modalities to reduce pain, spasms and effusion. Manual therapy to restore motion and function. Therapeutic exercise to improve strength and flexibility. Neuromuscular re-education for posture and balance. Therapeutic activities to return to functional activities of daily living. Electronically signed by: Asia Yeimy, PT, DPT, ATC Please sign and return to therapist. Thank you for your referral.
--- NOTE | 2025-01-16 13:47 | MHC.PT.DC ---
[facility] [place] Office [place] Office [place] Office [address] Vasquez [address] [phone] F: [phone] F: [phone] F: [phone] F: [phone] Physical Therapy Discharge Report Diagnosis: B shoulder pain Date of Surgery: n/a Date of Evaluation: 12/17/24 Date of Discharge: 01/16/25 Treatments to Date: 7 Cancellations to Date: 2 No Shows to Date: 0 Discharge Status: Achieved Goals Improved Function Independent with HEP Discharge Summary: 01/16/2025: Pt is feeling better overall. She is happy with her progress. Function is also improved. At this time max benefits of PT have been provided and skilled PT is no longer indicated. Pt is in agreement with d/c and we discussed recommendation to continue with HEP to maintain all gains made. Electronically signed by: Asia Gaffney, PT, DPT, ATC Please sign and return to therapist. Thank you for your referral.
== END 2025-01-16 13:47 | disposition home or self-care (01) ==
LOC: HO.PTCHIC 13:00
PROVIDERS: PCP Internal Medicine; Visit Provider Internal Medicine
DX: M25.511 Pain in right shoulder (principal); M25.512 Pain in left shoulder
CPT/HCPCS: 97110; 97161

== ENCOUNTER 2025-03-03 09:58 | Outpatient (AMB) | payer MEDICARE, SELFPAY ==
--- NOTE | 2025-03-03 09:59 | A.OFFPC_ITS ---
Vital Signs 03/03/25 10:00 Height 5 ft 8 in Weight 153 lb BMI 23.3 BP 160/80 H Blood Pressure Location Lt brachial Position Sitting Pulse 82 Pulse Source Pulse Oximeter Pulse Oximetry (%) 97 Intake Visit Reasons: 3 months f/up Allergies Sulfa (Sulfonamide Antibiotics) (SULFA (SULFONAMIDE ANTIBIOTICS)) Allergy (Severe, Verified 03/03/25 10:00) RASH ALL OVER BODY,FACE, rash Penicillins Allergy (Mild, Verified 03/03/25 10:00) THROAT SWELLING lisinopril Allergy (Unknown, Verified 03/03/25 10:00) cough penicillin V Allergy (Unknown, Verified 03/03/25 10:00) tongue banana (BANANA) Adverse Reaction (Severe, Verified 03/03/25 10:00) STOMACH UPSET/PAIN hazelnut (HAZELNUT) Adverse Reaction (Intermediate, Verified 03/03/25 10:00) UPSET STOMACH tuna Allergy (Mild, Uncoded 07/29/24 09:34) Facial Swelling Medication List - Last Reconciled 03/03/25 by Cole Mei MD amlodipine 10 mg PO DAILY 90 days atorvastatin 20 mg PO DAILY 90 days levothyroxine 100 mcg PO DAILY 90 days Tobacco use date assessed: 07/29/24 Fall risk assessment: No Falls in past year Last assessed Fall Risk: 03/03/25 Dental Screening Dental Screen Date: 07/29/24 HPI 3 months f/up HPI Details History of Present Illness The patient is a 74 year old female presenting for a follow-up visit and health maintenance. Hypertension: - The patient had an elevated blood pres sure reading of 160/? mmHg at the beginning of the visit. Came down to 130 later on Upper respiratory infection: - The patient is just getting over a col d and is not currently taking any [id number] medication for it. - symptoms improving Musculoskeletal health: - The patient reports that geophysical laboratory chief apy was successful, and she has improved movement. Both shoulders - She was given resistance bands by the therapist and confirms she is continuing the exercises at home to maintain arm and shoulder strength. Need ear irrigation for cerumen impaction Problem List - Hypertension - Cerumen impaction - Upper respiratory infection - Preventative care: Health maintenance Plan - Vitals: Recheck blood pressure before the patient leaves due to an initial elevated reading of 160. Came down to 130 - Ear care: cleaning of both ears due t o cerumen impaction. - Health Maintenance: Defer labs until t he next visit; an order will be placed at that time. - Musculoskeletal: Advised the patient t o continue her home exercise program to maintain arm and shoulder strength. - Medications: Re-send prescriptions for the patient's three medications. Review of Systems - General: No fever no chills - Neurological: No headaches no dizziness - Ear nose throat: No sore throat no hearing difficulty no ear pain - Cardiovascular: No syncope, no chest pain, no palpitations - Gastrointestinal: No nausea vomiting or diarrhea - Endocrine: No polyuria polydipsia no heat intolerance - Genitourinary: No dysuria , no blood in urine Physical Exam General: No acute distress HEENT: Ears need cleaning Neck: Supple Respiratory system: Able to talk in full sentences, no audible wheeze Cardiovascular: S1-S2 regular in rate and rhythm Gastrointestinal: No pain Extremities: No new findings IN FILE OPERATOR: Alert awake oriented x3 motor intact Skin: Normal turgor PFSH Medical History Cardiac pacemaker in situ SSS (sick sinus syndrome) Aortic stenosis Excessive cerumen in both ear canals Vitamin D deficiency Asthma, mild Osteopenia Impaired fasting blood sugar Psoriasis Hypothyroidism Lipid disorder Hypertension, essential Surgical History History of colonoscopy History of cystoscopy History of tooth extraction Family History Father History of CVA (cerebrovascular accident) HTN (hypertension) Depression Mother History of CVA (cerebrovascular accident) CAD (coronary artery disease) HTN (hypertension) Colitis Sister Myocardial infarction CAD (coronary artery disease) Colitis Brother Diabetes mellitus Maternal Aunt Breast cancer CAD (coronary artery disease) HTN (hypertension) Maternal Grandfather No problems noted. Maternal Grandmother No problems noted. Paternal Grandfather No problems noted. Paternal Grandmother No problems noted. Son No problems noted. Son No problems noted. Daughter No problems noted. Social History Housing: House Alcohol intake: current Alcohol intake frequency: a few times a week Patient Tobacco Use Status: Former Tobacco user Tobacco use type: Cigarette Cigarette Packs Per Day: 1 e-Cigarette/Vaping Use: Never Used service: No Current occupational status: retired Cognitive needs: No Hearing needs: No Vision needs: No Female Reproductive History Menstrual Age of Menarche: 13 Questionnaire Thrive Questionnaire Date Thrive assessed: 03/26/24 I am a: Patient What is your living situation today?: I have a steady place to live Within the past 12 months, did the food you bought not last and you didn't have the money to get more?: Never true Within the past 12 months, did you worry whether your food would run out before you got money to buy more?: Never true Do you have trouble paying for medicines?: No Do you have trouble getting transportation to medical appointments?: No Do you have trouble paying your heating and electricity bill?: No Do you have trouble taking care of your child, family member or friend?: No Do you have trouble with day-to-day activities such as bathing, preparing meals, shopping, managing finances, etc.?: No Are you currently unemployed and looking for a job?: No Are you interested in more education?: No Please select the resources that you would like help with: None Currently or been in a relationship where the following occur: No concerns reported THRIVE Score: 0 KM-7 AMB Questionnaire KM-7 Date KM - 7 assessed: 03/26/24 Source: Developed by Drs. Sylvester Morel, Quiana Trevizo, Asif Shaffer and colleagues, with an educational vanda from [employer] Physical exam (Primary Care) Vital Signs: Last Vital Signs Pulse 82 03/03/25 10:00 BP 160/80 H 03/03/25 10:00 Pulse Ox 97 03/03/25 10:00 BMI result Body Mass Index 23.3 Tobacco/Smoking Status: Tobacco use Status Tobacco use date assessed 07/29/24 03/03/25 10:00 Patient Tobacco Use Status Former Tobacco user 03/03/25 10:00 Tobacco use type Cigarette 03/03/25 10:00 e-Cigarette/Vaping Use Never Used 03/03/25 10:00 Thrive Assessment: Date of Thrive Assessment Date Thrive assessed 03/26/24 03/03/25 10:00 Currently or been in a relationship where the following occur: No concerns reported Office Procedures Cerumen Removal From which ear canal was the cerumen removed: bilateral Removal: irrigation Notes: patient tolerated procedure well, no complications and ear canal clear [id number] Irrigation/Lavage Coding Level of Care Code Est Pt Level 4 (80264) Add On Problem Visit Only Diagnoses Hypertension, essential I10 Impaired fasting blood sugar R73.01 Hypothyroidism, unspecified type E03.9 Hypothyroidism type: unspecified Osteopenia of lumbar spine M85.88 Osteopenia location: lumbar spine Excessive cerumen in both ear canals H61.23 CPT Codes Office Procedure - CPT: 73240-Axm Irrigation/Lavage ([id number]) Assessment & Plan Assessment & Plan (1) Hypertension, essential: Code(s): I10 - Essential (primary) hypertension Category: Medical (2) Impaired fasting blood sugar: Code(s): R73.01 - Impaired fasting glucose Category: Medical (3) Hypothyroidism: Code(s): E03.9 - Hypothyroidism, unspecified Category: Medical Qualifiers: Hypothyroidism type: unspecified Qualified Code(s): E03.9 - Hypothyroidism, unspecified (4) Osteopenia: Code(s): M85.80 - Other specified disorders of bone density and structure, unspecified site Category: Medical Qualifiers: Osteopenia location: lumbar spine Qualified Code(s): M85.88 - Other specified disorders of bone density and structure, other site (5) Excessive cerumen in both ear canals: Code(s): H61.23 - Impacted cerumen, bilateral Category: Medical Plan Problem List - Hypertension - Cerumen impaction - Upper respiratory infection - Preventative care: Health maintenance Plan - Vitals: Recheck blood pressure before the patient leaves due to an initial elevated reading of 160. Came down to 130 - Ear care: cleaning of both ears due to cerumen impaction. - Health Maintenance: Defer labs until the next visit; an order will be placed at that time. - Musculoskeletal: Advised the patient to continue her home exercise program to maintain arm and shoulder strength. - Medications: Re-send prescriptions for the patient's three medications. Orders: Orders Hemoglobin A1c Today E03.9 - Hypothyroidism, unspecified, H61.23 - Impacted cerumen, bilateral, I10 - Essential (primary) hypertension, M85.88 - Other specified disorders of bone density and structure, other site, R73.01 - Impaired fasting glucose Complete Blood Count Auto Diff Today E03.9 - Hypothyroidism, unspecified, H61.23 - Impacted cerumen, bilateral, I10 - Essential (primary) hypertension, M85.88 - Other specified disorders of bone density and structure, other site, R73.01 - Impaired fasting glucose Comprehensive [place]. Panel Fast Today E03.9 - Hypothyroidism, unspecified, H61.23 - Impacted cerumen, bilateral, I10 - Essential (primary) hypertension, M85.88 - Other specified disorders of bone density and structure, other site, R73.01 - Impaired fasting glucose TSH reflex Free T4 Today E03.9 - Hypothyroidism, unspecified, H61.23 - Impacted cerumen, bilateral, I10 - Essential (primary) hypertension, M85.88 - Other specified disorders of bone density and structure, other site, R73.01 - Impaired fasting glucose Lipid Panel Today E03.9 - Hypothyroidism, unspecified, H61.23 - Impacted cerumen, bilateral, I10 - Essential (primary) hypertension, M85.88 - Other specified disorders of bone density and structure, other site, R73.01 - Impaired fasting glucose Medications: Refilled levothyroxine 100 mcg PO DAILY 90 tabs 0RF 90 days amlodipine 10 mg PO DAILY 90 tabs 1RF 90 days atorvastatin 20 mg PO DAILY 90 tabs 1RF 90 days
[2025-03-03 10:00] VITALS: BP 160/80; PULSE 82; O2SAT 97; BMI 23.3
--- OUTSIDE RECORDS SUMMARY | 2025-03-03 12:09 | XMS_ITS | Patient Health Record ---
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
== END 2025-03-03 11:00 | disposition home or self-care (01) ==
LOC: HO.HMCC 09:59
PROVIDERS: PCP Internal Medicine; Visit Provider Internal Medicine
DX: I10 Essential (primary) hypertension (principal); R73.01 Impaired fasting glucose; E03.9 Hypothyroidism, unspecified; M85.88 Other specified disorders of bone density and structure, other site; H61.23 Impacted cerumen, bilateral

== ENCOUNTER → 2025-03-03 09:58 | Outpatient (BNVA) | payer MEDICARE, SELFPAY | PROVIDERS: PCP Internal Medicine; Visit Provider Internal Medicine | DX: I10 Essential (primary) hypertension (principal); J06.9 Acute upper respiratory infection, unspecified; R73.01 Impaired fasting glucose; E03.9 Hypothyroidism, unspecified; M85.88 Other specified disorders of bone density and structure, other site; H61.23 Impacted cerumen, bilateral | CPT/HCPCS: 69209; 99212 ==

== ENCOUNTER → 2025-03-13 16:05 | Outpatient (BNV) | payer MEDICARE, SELFPAY | PROVIDERS: PCP Internal Medicine; Visit Provider Internal Medicine Cardiovascular Disease | DX: I49.5 Sick sinus syndrome (principal) | CPT/HCPCS: 93294 ==